=== PATIENT | female | born 1980 | race Caucasian/White ===

== ENCOUNTER 2017-03-16 03:58 | Emergency (ER) | payer OTHER ==
--- NOTE | 2017-03-16 04:29 | RAD ---
Right ankle, three views Indication: Trauma with ankle pain Comparison: None Findings: No acute fracture or malalignment is identified. Joint spaces are preserved without appreci able arthropathy. There is no significant joint effusion. Surrounding soft tissues are unremarkable. Impression: No acute radiographic abnormality of the right ankle. Reported By:
[2017-03-16 04:31] VITALS: BP 137/78; BMI 34.7
[2017-03-16] MEDS ORDERED: DUONEB 0.5 MG/3 MG NEB ONE (04:59)
[2017-03-16] MEDS ORDERED: SOLU-Medrol 40 MG VIAL IVP ONE (04:59)
--- NOTE | 2017-03-16 05:05 | DR.GENAD ---
HPI - PCP Primary Care Physician: NFD - Complaint/Symptoms Chief Complaint Doctors Comments: Rt. ankle pain. Onset was 2 days ago, when she missed a few steps while coming down on the stairs at home. She fell to the concrete. The pain got more pronounced this morning, while playing with her puppies. It hurts to bear dunia on the extremity. Chief Complaint:: INJURY TO RIGHT ANKLE - Nurses notes reviewed Nurses Notes Review: Yes - Source History Provided: Patient - Mode of Arrival Mode of Arrival: Wheelchair - Timing Onset of Chief Complaint: 03/14/17 Came on: Suddenly - Severity Severity: Severe - Modifying Factors Worsens:: weight bearing Improves:: non-wt. bearing - Associated Signs and Symptoms Associated Signs and Symptoms: none PMH - PMH Past Medical History: Yes Past Medical History: Anxiety, Asthma, Diabetes Past Surgical History: Yes Surgical History: , Other - Family History History of Family Medical Conditions: Yes Family Medical History: Diabetes Mellitus, [place], Hypertension - Social History Does patient currently use any type of tobacco product: No Have you used tobacco products in the last 12 months: No Type of Tobacco Use: None Does any household member use tobacco: No Alcohol Use: None Do you use any recreational Drugs:: No Lives With: Family Lives Where: Home - infectious screening In the last 2 months have you had wt loss of >10#?: NO Have you had fever, night sweats or hemotysis?: No Have you traveled outside the country in the last 6 months?: No Isolation: Standard ROS - Review of Systems Constitutional: No Symptoms Reported Eyes: No Symptoms Reported ENTM: No Symptoms Reported Respiratoy: No Symptoms Reported Cardiovascular: No Symptoms Reported Gastrointestinal/Abdominal: No Symptoms Reported Genitourinary: No Symptoms Reported Neurological: No Symptoms Reported Musculoskeletal: Joint Pain, Right (right ankle tenderness ), Ankle Integumentary: No Symptoms Reported Hematologic/Lymphatic: No Symptoms Reported Endocrine: No Symptoms Reported Psychiatric: No Symptoms Reported All Other Systems: Reviewed and Negative PE - Vital Signs Vitals: Temperature 98.4 F Pulse Rate 123 Respiratory Rate 16 Blood Pressure 137/78 O2 Sat by Pulse Oximetry 96 - General Limitations: No Limitations General Appearance: Alert, In No Apparent Distress - Head Head Exam: Normal Inspection - Eyes Eye exam: Normal Appearance, PERRL, EOMI - ENT ENT Exam: Normal Exam - Neck Neck Exam: Normal Inspection, Full ROM - Chest Chest Inspection: Normal Inspection, Symmetric Chest Wall Rise - Respiratory Respiratory Exam: Normal Lung Sounds Bilat - Cardiovascular Cardiovascular Exam: Regular Rate, Normal Rhythm, +S1, +S2 - Abdominal Exam Abdominal Exam: Normal Inspection, Normal Bowel Sounds, Soft - Extremities Extremities Exam: Normal Inspection, Full ROM, Tenderness (circumferential rt. ankle tenderness) - Back Back Exam: Normal Inspection - Neurologic Neurological Exam: Alert, Oriented X3, CN II-XII Intact - Psychiatric Psychiatric Exam: Normal Affect, Normal Mood - Skin Skin Exam: Warm, Dry, Intact ROR - XRAY XRAY Interpreted by: Self (no fracture of ddislocation of the ankle joint) - Diagnosis Discharge Problem: Right ankle sprain - Discharge Plan Disposition: 01 HOME, SELF-CARE Condition: Stable - Follow ups/Referrals Follow ups/Referrals: NFD,None [Primary Care Provider] - 3 days - Instructions
[2017-03-16] MEDS ORDERED: TORADOL 60 MG VIAL IM ONE (05:09)
[2017-03-16] MEDS ORDERED: TORADOL 60 MG VIAL ONE (05:15)
== END 2017-03-16 05:34 | disposition home or self-care (01) ==
LOC: ER 03:58
DX: S93.401A Sprain of unspecified ligament of right ankle, initial encounter (principal); W10.9XXA Fall (on) (from) unspecified stairs and steps, initial encounter; Y92.009 Unspecified place in unspecified non-institutional (private) residence as the place of occurrence of the external cause
CPT/HCPCS: 73610; 96372; 99282; J1885

== ENCOUNTER 2022-02-05 15:08 | Observation (INO) ==
[2022-02-05] MEDS ORDERED: MORPHINE SULFATE INJ 2 MG INJ IVP PRN (15:13)
[2022-02-05] MEDS ORDERED: PHENERGAN INJ 25 MG IM PRN (15:16)
[2022-02-05 16:13] VITALS: BMI 35.2
[2022-02-05] MEDS: NS 1,000 ML IV 1,000 ML IV SCH (16:41)
[2022-02-05 16:48] LABS: BASOPHILS # (AUTO) 0.1 X10^3/uL (0.0-0.1); BASOPHILS % (AUTO) 0.7 % (0.2-1.0); EOSINOPHILS # (AUTO) 0.6 x10^3/uL (0.0-0.2); EOSINOPHILS % (AUTO) 5.2 % (0.9-2.9); HEMATOCRIT 40.3 % (36.0-47.0); HEMOGLOBIN 13.7 g/dL (12.0-16.0); LYMPHOCYTES # (AUTO) 2.6 X10^3/uL (1.3-2.9); MEAN CORPUSCULAR HEMOGLOBIN 28.1 pg (27.0-34.0); MEAN CORPUSCULAR HGB CONC 34.1 g/dL (33.0-35.0); MEAN CORPUSCULAR VOLUME 82.6 fL (80.0-100.0); MEAN PLATELET VOLUME 7.6 fL (7.4-11.0); MONOCYTES # (AUTO) 0.6 x10^3/uL (0.3-0.8); MONOCYTES % (AUTO) 6.1 % (0.0-13.0); NEUTROPHILS # (AUTO) 6.6 x10^3/uL (2.2-4.8); RED BLOOD COUNT 4.88 X10^6/uL (3.5-5.4); WHITE BLOOD COUNT 10.5 X10^3/uL (3.6-10.0)
--- NOTE | 2022-02-05 16:58 | RAD ---
HISTORYINTRACTABLE N/VSTUDYKUB x-ray one viewCOMPARISONX-ray 12/16/2021FINDINGSPhlebolith in the left side of the pelvis is stable. Prior cholecystectomy. No abnormalities are seen with the bowel gas pattern.IMPRESSIONAppearance of the abdomen is unchanged.Electronically signed by: Jonny Whitlock (Feb 05, 2022 16:56:39)
[2022-02-05 17:04] LABS: SERUM ACETONE NEGATIVE (NEGATIVE)
[2022-02-05 17:06] LABS: ALANINE AMINOTRANSFERASE 45 Units/L (12-78); ALBUMIN 3.8 g/dL (3.4-5.0); ALKALINE PHOSPHATASE 92 Units/L (46-116); ASPARTATE AMINO TRANSFERASE 93 Units/L (15-37); BLOOD UREA NITROGEN 8 mg/dL (7-18); CALCIUM 8.9 mg/dL (8.5-10.1); CARBON DIOXIDE 27.6 mmol/L (21-32); CHLORIDE 98 mmol/L (98-107); COR NA(FOR HYPERGLY) 139 mmol/L (136-145); CREATININE 0.67 mg/dL (0.55-1.02); SODIUM 137 mmol/L (136-145); TOTAL PROTEIN 7.5 g/dL (6.4-8.2); eGFR NON BLACK RACES > 60 (>60)
[2022-02-05] MEDS: PROTONIX INJ 40 MG VIAL IVP SCH ×2 (17:12→20:42)
[2022-02-05] MEDS: NovoLIN R (or HumuLIN R) SUBCUT PRN ×2 (17:21→23:13)
[2022-02-05 18:48] LABS: BILIRUBIN,URINE NEGATIVE (NEGATIVE); BLOOD/HEMOGLOBIN,URINE 1+ (NEGATIVE); GLUCOSE, URINE NEGATIVE (NEGATIVE); KETONES,URINE 1+ (NEGATIVE); LEUKOCYTE ESTERASE ,URINE NEGATIVE (NEGATIVE); NITRITES,URINE NEGATIVE (NEGATIVE); PROTEIN,URINE 1+ (NEGATIVE); UROBILINOGEN,URINE NORMAL (NORMAL)
[2022-02-05 19:00] LABS: APPEARANCE,URINE CLEAR (CLEAR); COLOR,URINE DARK YELLOW (YELLOW); SQUAMOUS EPITHELIAL CELL,UR MODERATE /HPF (NEGATIVE)
[2022-02-05 19:01] LABS: BACTERIA,URINE 1+ /HPF (NEGATIVE)
[2022-02-05 19:50] LABS: CRYPTOSPORIDIUM PARVUM ANTIGEN NEGATIVE (NEGATIVE); GIARDIA LAMBLIA ANTIGEN NEGATIVE (NEGATIVE)
[2022-02-05] MEDS ORDERED: DUONEB 0.5 MG/3 MG (3 mL) NEB ONE (19:54)
[2022-02-05] MEDS ORDERED: SNACK - Diabetic Appropriate PO SCH (20:00)
[2022-02-05] MEDS: DUONEB 0.5 MG/3 MG (3 mL) NEB SCH (20:56)
[2022-02-06] MEDS: DUONEB 0.5 MG/3 MG (3 mL) NEB SCH ×3 (00:10→08:47)
[2022-02-06] MEDS: NS 1,000 ML IV 1,000 ML IV SCH ×2 (01:21→08:24)
[2022-02-06 05:59] LABS: BASOPHILS % (AUTO) 0.5 % (0.2-1.0); EOSINOPHILS # (AUTO) 0.4 x10^3/uL (0.0-0.2); EOSINOPHILS % (AUTO) 4.7 % (0.9-2.9); HEMATOCRIT 36.1 % (36.0-47.0); LYMPHOCYTES # (AUTO) 2.9 X10^3/uL (1.3-2.9); LYMPHOCYTES % (AUTO) 35.8 % (21.0-51.0); MEAN CORPUSCULAR HGB CONC 33.2 g/dL (33.0-35.0); MEAN CORPUSCULAR VOLUME 84.3 fL (80.0-100.0); MEAN PLATELET VOLUME 7.7 fL (7.4-11.0); MONOCYTES # (AUTO) 0.5 x10^3/uL (0.3-0.8); MONOCYTES % (AUTO) 6.1 % (0.0-13.0); NEUTROPHILS # (AUTO) 4.3 x10^3/uL (2.2-4.8); NEUTROPHILS % (AUTO) 52.9 % (42.0-75.0); RED BLOOD COUNT 4.28 X10^6/uL (3.5-5.4); RED CELL DISTRIBUTION WIDTH 14.7 % (11.6-16.5); WHITE BLOOD COUNT 8.1 X10^3/uL (3.6-10.0)
[2022-02-06] MEDS: NovoLIN R (or HumuLIN R) SUBCUT PRN (06:07)
[2022-02-06 06:26] LABS: ALANINE AMINOTRANSFERASE 33 Units/L (12-78); ALBUMIN 3.1 g/dL (3.4-5.0); ALKALINE PHOSPHATASE 81 Units/L (46-116); ASPARTATE AMINO TRANSFERASE 47 Units/L (15-37); BLOOD UREA NITROGEN 9 mg/dL (7-18); CALCIUM 8.2 mg/dL (8.5-10.1); CARBON DIOXIDE 24.6 mmol/L (21-32); CHLORIDE 103 mmol/L (98-107); COR CA(FOR HYPOALB) 8.9 mg/dL (8.5-10.1); COR NA(FOR HYPERGLY) 141 mmol/L (136-145); CREATININE 0.76 mg/dL (0.55-1.02); SODIUM 138 mmol/L (136-145); TOTAL PROTEIN 6.1 g/dL (6.4-8.2); eGFR NON BLACK RACES > 60 (>60)
[2022-02-06] MEDS ORDERED: TYLENOL 325 MG TAB PO PRN (08:13)
[2022-02-06] MEDS: PROTONIX INJ 40 MG VIAL IVP SCH (08:22)
--- NOTE | 2022-02-06 08:42 | DR.H&P ---
H&P History & Physical for Day of: H&P Date: 02/05/22 Chief Complaint Chief Complaint: Intractable nausea and vomiting Allergies Allergies Allergy/AdvReac Type Severity Reaction Status Date / Time amoxicillin Allergy Verified 01/08/22: aspirin Allergy Verified 01/08/22 21: citric acid Allergy Verified 01/08/22: haloperidol [From Haldol] Allergy Verified 01/08/22 21: hydromorphone Allergy Verified 01/08/22: metoclopramide Allergy Verified 01/08/22: omeprazole Allergy Verified 01/08/22: ondansetron Allergy Verified 01/08/22: [From Zofran (as hydrochloride)] Penicillins Allergy Verified 01/08/22: prochlorperazine Allergy Verified 01/08/22: History of Present Illness History of Present Illness: This is a 41-year-old white female who reports having intractable nausea vomiting. She reports at times she just eats or drinks something she throws up. She has been on hospital for 5 days now from [place]. She was hospitalized for 8 days for same symptoms. She was disc harged Thursday however she reports she is not any better and has been vomiting again. She reports she may have been diagnosed with Salmonella or E. coli in the stool but she is not for sure about this. "Admitted to the hospital and started on IV fluid and do a work-up regarding her diarrhea and check a serum acetone to rule out DKA. Past Medical History Past Medical History: Anxiety, Asthma, Depression, Diabetes, Migraines, GERD, Hypertension and SVT Past Surgical History Surgical History: , Cholecystectomy and Hysterectomy Family History Family Medical History: Diabetes Mellitus, Cancer, [place], Coronary Artery Disease, Heart Failure and Hypertension Social History Does patient currently use any type of tobacco product: No Have you used tobacco products in the last 12 months: No Type of Tobacco Use: None Does any household member use tobacco: No Alcohol Use: None Drug Use: None Medications Home Medications: amoxicillin Allergy (Verified 01/08/22 21:) aspirin Allergy (Verified 01/08/22:) citric acid Allergy (Verified 01/08/22:) haloperidol [From Haldol] Allergy (Verified 01/08/22:) hydromorphone Allergy (Verified 11/02/22 21:22) metoclopramide Allergy (Verified 01/08/22 21:22) omeprazole Allergy (Verified 01/08/22 21:22) ondansetron [From Zofran (as hydrochloride)] Allergy (Verified 01/08/22 21:22) Penicillins Allergy (Verified 01/08/22 21:22) prochlorperazine Allergy (Verified 01/08/22 21:22) CONTINUE taking the following medications acyclovir 400 mg tablet 400 mg PO BID 02/05/22 [History] atorvastatin 20 mg tablet 20 mg PO HS 02/05/22 [History] cyclobenzaprine 10 mg tablet 10 mg PO BID PRN Muscle Pain 02/05/22 [History] dicyclomine 10 mg capsule 10 mg PO TID 02/05/22 [History] diltiazem HCl 180 mg capsule,extended release 24 hr (Cartia XT) 180 mg PO DAILY 02/05/22 [History] ertugliflozin 5 mg tablet (Steglatro) 5 mg PO DAILY 02/05/22 [History] estradiol 2 mg tablet 2 mg PO DAILY 02/05/22 [History] famotidine 20 mg tablet (Pepcid) 20 mg PO BID 02/05/22 [History] fexofenadine 180 mg tablet 180 mg PO BID 02/05/22 [History] hydrocodone 7.5 mg-acetaminophen 325 mg tablet 7.5 tab PO BID PRN 02/05/22 [His tory] insulin aspart U-100 100 unit/mL (3 mL) subcutaneous pen (Novolog Flexpen U-100 Insulin aspart) 1 unit subcut PRN PRN 02/05/22 [History] insulin glargine 100 unit/mL (3 mL) subcutaneous pen (Basaglar KwikPen U-100 Insulin) 40 unit subcut DAILY 02/05/22 [History] lorazepam 1 mg tablet 1 mg PO BID 02/05/22 [History] meloxicam 7.5 mg tablet 7.5 mg PO TID 02/05/22 [History] metformin 1,000 mg tablet,extended release 24hr 1,000 mg PO BID 02/05/22 [History] montelukast 10 mg tablet 10 mg PO DAILY 02/05/22 [History] omeprazole 40 mg capsule,delayed release 40 mg PO DAILY 02/05/22 [History] promethazine 50 mg tablet 50 mg PO BID PRN Nausea 02/05/22 [History] trazodone 50 mg tablet 50 mg PO HS 02/05/22 [History] Labs Result Diagrams: 02/06/22 05:19 02/06/22 05:19 Labs: 02/05/22 18:15 Stool - Final Laboratory WBC 8.1 X10^3/uL (3.6-10.0) 02/06/22 05:19 RBC 4.28 X10^6/uL (3.5-5.4) 02/06/22 05:19 Hgb 12.0 g/dL (12.0-16.0) 02/06/22 05:19 Hct 36.1 % (36.0-47.0) 02/06/22 05:19 MCV 84.3 fL (80.0-100.0) 02/06/22 05:19 MCH 28.0 pg (27.0-34.0) 02/06/22 05:19 MCHC 33.2 g/dL (33.0-35.0) 02/06/22 05:19 RDW 14.7 % (11.6-16.5) 02/06/22 05:19 Plt Count 260 X10^3/uL (150.0-450.0) 02/06/22 05:19 MPV 7.7 fL (7.4-11.0) 02/06/22 05:19 Neut % (Auto) 52.9 % (42.0-75.0) 02/06/22 05:19 Lymph % (Auto) 35.8 % (21.0-51.0) 02/06/22 05:19 [place] % (Auto) 6.1 % (0.0-13.0) 02/06/22 05:19 Eos % (Auto) 4.7 % (0.9-2.9) H 02/06/22 05:19 Baso % (Auto) 0.5 % (0.2-1.0) 02/06/22 05:19 Neut # (Auto) 4.3 x10^3/uL (2.2-4.8) 02/06/22 05:19 Lymph # (Auto) 2.9 X10^3/uL (1.3-2.9) 02/06/22 05:19 [place] # (Auto) 0.5 x10^3/uL (0.3-0.8) 02/06/22 05:19 Eos # (Auto) 0.4 x10^3/uL (0.0-0.2) H 02/06/22 05:19 Baso # (Auto) 0.0 X10^3/uL (0.0-0.1) 02/06/22 05:19 Absolute Nucleated RBC 0.0 /100WBC 02/06/22 05:19 Sodium 138 mmol/L (136-145) 02/06/22 05:19 Corrected Sodium 141 mmol/L (136-145) 02/06/22 05:19 Potassium 3.9 mmol/L (3.5-5.1) 02/06/22 05:19 Chloride 103 mmol/L (98-107) 02/06/22 05:19 Carbon Dioxide 24.6 mmol/L (21-32) 02/06/22 05:19 BUN 9 mg/dL (7-18) 02/06/22 05:19 Creatinine 0.76 mg/dL (0.55-1.02) 02/06/22 05:19 Est GFR (MDRD) Af Amer > 60 (>60) 02/06/22 05:19 Est GFR (MDRD) Non-Af > 60 (>60) 02/06/22 05:19 Glucose 223 mg/dL (65-99) H 02/06/22 05:19 POC Glucose (mg/dL) 204 mg/dL (65-99) H 02/06/22 05:19 Calcium 8.2 mg/dL (8.5-10.1) L 02/06/22 05:19 Corrected Calcium 8.9 mg/dL (8.5-10.1) 02/06/22 05:19 Total Bilirubin 0.30 mg/dL (0.2-1.0) 02/06/22 05:19 AST 47 Units/L (15-37) H 02/06/22 05:19 ALT 33 Units/L (12-78) 02/06/22 05:19 Alkaline Phosphatase 81 Units/L (46-116) 02/06/22 05:19 Total Protein 6.1 g/dL (6.4-8.2) L 02/06/22 05:19 Albumin 3.1 g/dL (3.4-5.0) L 02/06/22 05:19 Globulin 3.0 g/dL (2.5-4.5) 02/06/22 05:19 Albumin/Globulin Ratio 1.0 Ratio (1.1-2.1) L 02/06/22 05:19 Specimen Type Clean catch urine 02/05/22 18:10 Urine Color Dark yellow (YELLOW) 02/05/22 18:10 Urine Appearance Clear (CLEAR) 02/05/22 18:10 Urine pH 6.0 (5.0 - 8.0) 02/05/22 18:10 Ur Specific [place] 1.020 (1.000-1.030) 02/05/22 18:10 Urine Protein 1+ (NEGATIVE) 02/05/22 18:10 Urine Glucose (UA) Negative (NEGATIVE) 02/05/22 18:10 Urine Ketones 1+ (NEGATIVE) 02/05/22 18:10 Urine Blood 1+ (NEGATIVE) 02/05/22 18:10 Urine Nitrite Negative (NEGATIVE) 02/05/22 18:10 Urine Bilirubin Negative (NEGATIVE) 02/05/22 18:10 Urine Urobilinogen Normal (NORMAL) 02/05/22 18:10 Ur Leukocyte Esterase Negative (NEGATIVE) 02/05/22 18:10 Urine RBC 3-5 /HPF (0-3) A 02/05/22 18:10 Urine WBC 0-2 /HPF (0-5) 02/05/22 18:10 Ur Squamous Epith Cells Moderate /HPF (NEGATIVE) 02/05/22 18:10 Urine Bacteria 1+ /HPF (NEGATIVE) 02/05/22 18:10 Urine Mucus Many /HPF (NEGATIVE) 02/05/22 18:10 Ur Culture Indicated? No/not indicated 02/05/22 18:10 Stl Occult Blood (IFOB) Negative (NEGATIVE) 02/05/22 18:15 Stool for White Cells Positive (NEGATIVE) A 02/05/22 18:15 Stl C. diff Tox B Gene Negative (NEGATIVE) 02/05/22 18:15 Stl C. diff [id number] Presumptive negative (NEGATIVE) 02/05/22 18:15 Stool H. pylori Ag Negative (NEGATIVE) 02/05/22 18:15 Acetone, Semi-Quant Negative (NEGATIVE) 02/05/22 16:10 Cryptosporid parvum Ag Negative (NEGATIVE) 02/05/22 18:15 Giardia lamblia Ag Negative (NEGATIVE) 02/05/22 18:15 Review of Systems Constitutional: Weakness Eyes: No Symptoms Reported ENT: No Symptoms Reported Respiratory: No Symptoms Reported Cardiovascular: No Symptoms Reported Gastrointestinal: Nausea, Vomiting and Diarrhea Genitourinary: No Symptoms Reported Musculoskeletal: No Symptoms Reported Skin: No Symptoms Reported Neurological: No Symptoms Reported Physical Exam Vital Signs: Temperature 98.6 F Pulse Rate [Left] 95 Pulse Rate 103 Respiratory Rate 20 Blood Pressure [Right Arm] 120/72 Blood Pressure [Left Arm] 117/83 Blood Pressure 131/97 O2 Sat by Pulse Oximetry 96 Oriented: Normal, Time, Person and Place Eyes: Normal Ear: Normal Nose: Normal Throat: Normal Respiratory: Clear Throughout Cardiovascular: Normal Auscultation: Bowel Sounds: Normal Palpation: Normal Tenderness: Normal Skin: Normal Musculoskeletal: Normal Psychiatric: Normal Mood Description: Calm Affect: Normal Speech Pattern: Clear and Appropriate Assessment/Plan (1) Nausea and vomiting: Status: Acute Plan: I will start patient on IV fluid and give her as needed Phenergan. (2) Weakness: Status: Acute Plan: We will check CMP, CBC. (3) Diabetes mellitus type 2 in obese: Status: Acute Plan: Will cover patient with slight scale regular insulin per protocol. Review H&P Reviewed: Yes Patient was examined?: Yes
[2022-02-06 09:41] VITALS: BP 121/73
== END 2022-02-06 11:10 | disposition home or self-care (01) ==
LOC: MED/SURG
PROVIDERS: ADMIT Family Medicine; ATTEND Family Medicine
DX: E11.65 Type 2 diabetes mellitus with hyperglycemia; R11.2 Nausea with vomiting, unspecified; R53.1 Weakness; E66.9 Obesity, unspecified

== ENCOUNTER 2023-05-15 02:52 | Inpatient (IN) ==
[2023-05-15 03:22] VITALS: BMI 34.5
[2023-05-15 03:46] LABS: BASOPHILS % (AUTO) 0.6 % (0.2-1.0); EOSINOPHILS # (AUTO) 0.7 x10^3/uL (0.0-0.2); EOSINOPHILS % (AUTO) 9.1 % (0.9-2.9); HEMATOCRIT 33.1 % (36.0-47.0); HEMOGLOBIN 10.9 g/dL (12.0-16.0); LYMPHOCYTES # (AUTO) 1.8 X10^3/uL (1.3-2.9); LYMPHOCYTES % (AUTO) 21.2 % (21.0-51.0); MEAN CORPUSCULAR HEMOGLOBIN 27.9 pg (27.0-34.0); MEAN CORPUSCULAR HGB CONC 32.9 g/dL (33.0-35.0); MEAN CORPUSCULAR VOLUME 84.8 fL (80.0-100.0); MONOCYTES # (AUTO) 0.5 x10^3/uL (0.3-0.8); MONOCYTES % (AUTO) 5.8 % (0.0-13.0); NEUTROPHILS # (AUTO) 5.2 x10^3/uL (2.2-4.8); NEUTROPHILS % (AUTO) 63.3 % (42.0-75.0); PLATELET COUNT 406 X10^3/uL (150.0-450.0); RED CELL DISTRIBUTION WIDTH 14.5 % (11.6-16.5); WHITE BLOOD COUNT 8.3 X10^3/uL (3.6-10.0)
[2023-05-15 03:54] LABS: ALANINE AMINOTRANSFERASE 29 Units/L (12-78); ALBUMIN 2.8 g/dL (3.4-5.0); ALKALINE PHOSPHATASE 92 Units/L (46-116); ASPARTATE AMINO TRANSFERASE 31 Units/L (15-37); BLOOD UREA NITROGEN 5 mg/dL (7-18); CALCIUM 8.3 mg/dL (8.5-10.1); CARBON DIOXIDE 31.6 mmol/L (21-32); CHLORIDE 101 mmol/L (98-107); COR CA(FOR HYPOALB) 9.3 mg/dL (8.5-10.1); COR NA(FOR HYPERGLY) 143 mmol/L (136-145); CREATININE 0.72 mg/dL (0.55-1.02); GLUCOSE 171 mg/dL (65-99); POTASSIUM 3.2 mmol/L (3.5-5.1); SODIUM 141 mmol/L (136-145); TOTAL PROTEIN 6.5 g/dL (6.4-8.2); eGFR NON BLACK RACES > 60 (>60)
--- NOTE | 2023-05-15 04:21 | DR.SOBA ---
HPI Time Seen Time Seen by Provider: 05/15/23 03:30 Primary Care Physician Primary Care Physician: SULY Complaints Chief Complaint Doctors Comments: Patient was admitted 05/06/2023 and d/c 05/09/[address] Chandra's Service for a hernia repair. Patient states that she has been feeling sob since d/c.She was coughing blood tinged sputum,had low grade temp (100-100.4 ). Patient states that her sob worsened and she has had increased nausea,headache,decreased appetite and increased abdominal pain and decided to come to the hospital to get checked out.Patient denies: dizziness,lightheadedness,discharge from the incision site. Chief Complaint:: PT COMPLAINING OF SOB X 1 WEEK. PT HAD SURGERY 1 WEEK AGO AND STATES SINCE SURGERY SHE FEELS LIKE SHE ISN'T ABLE TO CATCH HER BREATH. Self Treatment fo Chief Complaint: NORCO 10 COVID-19 Coronavirus risk:travel/contact w/high risk person: No Source History Provided: Patient Mode of Arrival Mode of Arrival: Ambulatory Timing Onset of Chief Complaint: 05/06/23 PMH PMH Past Medical History: Yes Past Medical History: Anxiety, Asthma, Depression, Diabetes, GERD, Liver Disease, Seizures and Sleep Apnea Past Surgical History: Yes Surgical History: , Cholecystectomy and Hysterectomy Family History History of Family Medical Conditions: Yes Family Medical History: Hypertension Social History Do you use any recreational Drugs:: No Travel Risk Coronavirus risk:travel/contact w/high risk person: No Infectious screening Have you traveled outside the country in the last 6 months?: No Isolation: Standard ROS Review of Systems Constitutional: Fever (low grade) Eyes: No Symptoms Reported ENTM: No Symptoms Reported Respiratoy: Productive Cough (blood tinged sputum) and Short of Breath Cardiovascular: No Symptoms Reported Gastrointestinal/Abdominal: Abdominal Pain (surr. incision site), Nausea and Food Intolerance Genitourinary: No Symptoms Reported Neurological: Headache Musculoskeletal: No Symptoms Reported Integumentary: Other (Incision dressing abdomen(no drainage on dressing)) Hematologic/Lymphatic: No Symptoms Reported Endocrine: No Symptoms Reported Psychiatric: No Symptoms Reported All Other Systems: Reviewed and Negative PE Vital Signs Vitals: Vital Signs Temperature 98.4 F Pulse Rate [Bilateral Radial] 102 Pulse Rate 122 Respiratory Rate 20 Respiratory Rate 20 Respiratory Rate 22 Blood Pressure [Right Arm] 149/93 Blood Pressure 141/96 O2 Sat by Pulse Oximetry 96 O2 Sat by Pulse Oximetry 93 General Limitations: No Limitations General Appearance: Alert and In No Apparent Distress Head Head Exam: Normal Inspection Eyes Eye exam: Normal Appearance ENT ENT Exam: Normal Exam Neck Neck Exam: Normal Inspection and Trachea Midline Chest Chest Inspection: Normal Inspection Respiratory Respiratory Exam: Normal Lung Sounds Bilat Respiratory Exam: Bilateral: Clear to Auscultation Cardiovascular Cardiovascular Exam: Regular Rate and Normal Rhythm Abdominal Exam Abdominal Exam: Soft, Hypoactive Bowel Sounds and Incision (No erythema,no d/c,no warmth,moderate tenderness to palpation) Abdominal Tenderness: Epigastrium and Other (umbilical) Extremities Extremities Exam: Normal Inspection Back Back Exam: Normal Inspection Neurologic Neurological Exam: Alert and Oriented X3 Psychiatric Psychiatric Exam: Normal Affect and Normal Mood Skin Skin Exam: Warm, Dry, Intact and Normal Color MDM Differential Diagnosis Differential Diagnosis: CHF and Pneumonia Differential Diagnosis Comment:: Abdomen: Inflammation/Obstr/Perforation/I schemic Bowel COURSE Treatment Treatment: Patient was brought to an exam room and IV access was initiated. Labs and tests were ordered. Review of patient's labs and tests revealed: WBC 8.3,H/H 10.9/33, BUN 5,creatinine 0.72, lactic acid 0.8, CRP 27.1, BNP 151, glucose 171, potassium 3.2. CXR: Revealed multifocal consolidation with nodular opacities in the left mid and bilateral lower lung zones that may represent acute or chronic airspace disease. Patient had an elevated D-dimer and chest CTA was performed> CTA chest did not reveal a PE, multiple pulmonary nodules prominent in the right upper right middle right lower lobe and left upper lobe were present and may represent infectious or neoplastic process, and Patient has small bilateral pleural effusions. Patient received Rocephin 2 g IV and Levaquin 750 mg IV for possible community-acquired pneumonia. Patient takes Phenergan 25 mg every 6 hours and hydrocodone 10 mg every 4 hours for pain. And she was given a dose of each in the ED today. Discussed patient's case with Dr. Chandra. Dr. Ahumada will admit the patient to his service for further evaluation. Patient has been stable in the ED. ; ROR Labs Reviewed Laboratory Results Reviewed?: Yes 05/15/23 03:33 05/15/23 03:33 Laboratory: WBC 8.3 X10^3/uL (3.6-10.0) 05/15/23 03:33 RBC 3.90 X10^6/uL (3.5-5.4) 05/15/23 03:33 Hgb 10.9 g/dL (12.0-16.0) L 05/15/23 03:33 Hct 33.1 % (36.0-47.0) L 05/15/23 03:33 MCV 84.8 fL (80.0-100.0) 05/15/23 03:33 MCH 27.9 pg (27.0-34.0) 05/15/23 03:33 MCHC 32.9 g/dL (33.0-35.0) L 05/15/23 03:33 RDW 14.5 % (11.6-16.5) 05/15/23 03:33 Plt Count 406 X10^3/uL (150.0-450.0) 05/15/23 03:33 MPV 7.0 fL (7.4-11.0) L 05/15/23 03:33 Neut % (Auto) 63.3 % (42.0-75.0) 05/15/23 03:33 Lymph % (Auto) 21.2 % (21.0-51.0) 05/15/23 03:33 [place] % (Auto) 5.8 % (0.0-13.0) 05/15/23 03:33 Eos % (Auto) 9.1 % (0.9-2.9) H 05/15/23 03:33 Baso % (Auto) 0.6 % (0.2-1.0) 05/15/23 03:33 Neut # (Auto) 5.2 x10^3/uL (2.2-4.8) H 05/15/23 03:33 Lymph # (Auto) 1.8 X10^3/uL (1.3-2.9) 05/15/23 03:33 [place] # (Auto) 0.5 x10^3/uL (0.3-0.8) 05/15/23 03:33 Eos # (Auto) 0.7 x10^3/uL (0.0-0.2) H 05/15/23 03:33 Baso # (Auto) 0.0 X10^3/uL (0.0-0.1) 05/15/23 03:33 Absolute Nucleated RBC 0.1 /100WBC 05/15/23 03:33 D-Dimer 3.86 ug/ml (0.0-0.57) H 05/15/23 03:33 Sodium 141 mmol/L (136-145) 05/15/23 03:33 Corrected Sodium 143 mmol/L (136-145) 05/15/23 03:33 Potassium 3.2 mmol/L (3.5-5.1) L 05/15/23 03:33 Chloride 101 mmol/L (98-107) 05/15/23 03:33 Carbon Dioxide 31.6 mmol/L (21-32) 05/15/23 03:33 BUN 5 mg/dL (7-18) L 05/15/23 03:33 Creatinine 0.72 mg/dL (0.55-1.02) 05/15/23 03:33 Est GFR (MDRD) Af Amer > 60 (>60) 05/15/23 03:33 Est GFR (MDRD) Non-Af > 60 (>60) 05/15/23 03:33 Glucose 171 mg/dL (65-99) H 05/15/23 03:33 Lactic Acid 0.8 mmol/L (0.4-2.0) 05/15/23 06:55 Calcium 8.3 mg/dL (8.5-10.1) L 05/15/23 03:33 Corrected Calcium 9.3 mg/dL (8.5-10.1) 05/15/23 03:33 Total Bilirubin 0.40 mg/dL (0.2-1.0) 05/15/23 03:33 AST 31 Units/L (15-37) 05/15/23 03:33 ALT 29 Units/L (12-78) 05/15/23 03:33 Alkaline Phosphatase 92 Units/L (46-116) 05/15/23 03:33 C-Reactive Protein 27.10 mg/L (0-3.0) H 05/15/23 06:55 B-Natriuretic Peptide 151 pg/mL (0-79) H 05/15/23 03:33 Total Protein 6.5 g/dL (6.4-8.2) 05/15/23 03:33 Albumin 2.8 g/dL (3.4-5.0) L 05/15/23 03:33 Globulin 3.7 g/dL (2.5-4.5) 05/15/23 03:33 Albumin/Globulin Ratio 0.8 Ratio (1.1-2.1) L 05/15/23 03:33 Opioid Opioid Risk Tool Age (Cesar box if 16-45): Yes History of Preadolescent Sexual Abuse: No Total: 1 Total Score Risk Category: Low Risk Copyright: Ish SONG predicting aberrant behaviors Discharge Plan Diagnosis Discharge Problem: Pneumonia, Abdominal abscess, Bilateral pleural effusion, Multiple pulmonary nodules Discharge Plan Patient Disposition: ADMITTED INPATIENT Condition: Stable Prescriptions: No Action citalopram [Celexa] 10 mg tablet 10 mg PO QDAY 30 Days Qty: 30 3RF hydroxyzine pamoate 50 mg capsule 50 mg PO QHS PRN (Reason: sleep) 30 Days Qty: 30 3RF omeprazole 40 mg capsule,delayed release(DR/EC) 40 mg PO QDAY 30 Days Qty: 30 2RF lorazepam 1 mg tablet 1 mg PO BID MDD 2 30 Days Qty: 60 0RF insulin lispro [Admelog SoloStar U-100 Insulin] 100 unit/mL insulin pen 12 unit SUBCUT TID PRN (Reason: diabetes) Qty: 15 0RF gabapentin 300 mg capsule 300 mg PO TID 30 Days Qty: 90 0RF hydrocodone-acetaminophen 7.5-325 mg tablet 1 tab PO BID MDD 2 PRN (Reason: pain) 30 Days Qty: 60 0RF hydrocodone-acetaminophen 10-325 mg tablet 1 tab PO TID MDD 3 PRN (Reason: pain) 30 Days Qty: 90 0RF promethazine 25 mg tablet 25 mg PO Q6H PRN (Reason: nausea and vomiting) Qty: 30 0RF (DME) OneTouch Verio test strips Strip 1 strip MISCELLANEOUS TID Health Concerns: Post Hospitalization: new medications and changes needed to prevent readmission or further decline. Pt educated and given instructions on all concerns. Plan of Treatment: Continue with present treatment and follow up plan. Pt is to keep follow up appointment as instructed and take medications as ordered. Orders to Discharge Patient Discharge Orders: Transfer (Routine); Ordered 05/15/23 Ordered By: Jeimy Iniguez Follow ups/Referrals Follow ups/Referrals: Miquel Brown [Primary Care Provider] - 3 days Instructions Stand Alone Forms: Post Hospital Follow Up Care
[2023-05-15] MEDS: NS 100 ML IV 100 ML ONE (05:14)
[2023-05-15] MEDS: OMNIPAQUE 350 mg/mL 100 mL BTL 100 ML ONE (05:14)
--- NOTE | 2023-05-15 06:01 | RAD ---
EXAM:FRONTAL VIEW CHEST X-RAYHISTORY:Shortness of breathCOMPARISON:None.FINDINGS:Mult ifocal consolidation is seen with nodular opacities in the left mid and bilateral lower lung zones.The heart size is within normal limits.The mediastinum is unremarkable.There is no evidence of pleural effusion or gross pneumothorax.The trachea is midline.IMPRESSION:1. Multifocal consolidation is seen with nodular opacities in the left mid and bilateral lower lung zones. This finding was not present on the prior study and may represent acute or chronic airspace disease.THIS IS AN ELECTRONICALLY VERIFIED FINAL REPORT05/15/2023 5:58 AM - Electronically signed by Jaxson Saleh MD
[2023-05-15] MEDS ORDERED: NS 100 ML IV 100 ML ONE (06:18)
[2023-05-15] MEDS ORDERED: ROCEPHIN VIAL 2 GRAMS ONE (06:18)
[2023-05-15] MEDS ORDERED: LEVAQUIN PREMIX IV 750 MG 750 MG/150 ML BAG IV ONE (06:19)
[2023-05-15] MEDS: ROCEPHIN VIAL 2 GRAMS 2 G in NS 100 ML IV 100 ML IV SCH (06:59)
--- NOTE | 2023-05-15 07:05 | CT ---
EXAM:ABDCMEN/PELVIS WITH CONHISTORY:Abdominal painTECHNIQUE:Axial postcontrast images with coronal and sagittal reformats. Dose reduction procedures were used with mA/kv adjusted for body size.COMPARISON:03/07/2024FINDINGS:Bilat eral moderate pleural effusions are present. Atelectatic changes are present in both lung bases abutting the pleural effusions. There is a question of some pulmonary nodules in the lung bases. This should be better evaluated with chest CT. the liver, spleen, adrenal glands, and pancreas appear within normal limits. Patient is status post cholecystectomy. Surgical clips are present also in the left upper quadrant. Kidneys are unobstructed and without stones or masses. No ureteral calculi are identified. There appears to be a recent midline surgical incision in the upper abdomen. Best visualized on axial series 3 image 24 and sagittal series 6 image 44 is a 1.8 x 1.8 cm gas and fluid collection in the anterior peritoneum abutting the abdominal wall. This could represent a small postoperative seroma or developing abscess. Abdominal aorta is normal. No intraperitoneal or retroperitoneal lymphadenopathy of significance is identified. The appendix is normal. There are no findings suggestive of enteritis, colitis, or diverticulitis. No pelvic masses or pelvic lymphadenopathy is identified. There is a small amount of fluid within the pelvis likely postoperative in origin. No definite bladder abnormality is identified. No lytic or blastic skeletal lesions of significance are identified.IMPRESSION:Bilateral small pleural effusions with adjacent atelectatic lung changesQuestion of some small nodules in the lung bases which should be better evaluated with chest CTRecent abdominal incision deep to which there is a 1.8 x 1.8 cm gas and fluid collection within the peritoneum abutting the anterior abdominal wall possibly a small seroma or developing abscess. Clinical correlation is recommended. Follow-up examination may be indicated.Small amount of fluid within the pelvis likely related to recent surgery.THIS IS AN ELECTRONICALLY VERIFIED FINAL REPORT05/15/2023 7:02 AM - Electronically signed by Vinay Estrada MD
[2023-05-15] MEDS: LEVAQUIN PREMIX IV 750 MG 750 MG/150 ML BAG IV SCH (07:41)
--- NOTE | 2023-05-15 08:59 | CT ---
EXAM:CTA, CHESTHISTORY:Shortness of breath, elevated D-dimerTECHNIQUE:Axial postcontrast images with coronal and sagittal reformats. Three-dimensional maximum intensity projection images were obtained and evaluated. Dose reduction techniques were used with MA/kv adjusted for body size.COMPARISON:07/24/2021FINDINGS:There is no evidence for acute pulmonary thromboembolic disease. Examination of the mediastinum demonstrated no evidence for mediastinal masses, and large mediastinal or enlarged hilar adenopathy or significant aortic abnormality. Heart is mildly enlarged. Bilateral small pleural effusions are present. No chest wall or axillary abnormality is identified. Those portions of the upper abdominal organs visualized appeared within normal limits to the limitations of early arterial injection timing with the exception of the previously described 1.8 cm gas and fluid collection within the anterior peritoneum abutting the abdominal wall in the area of the patient's recent incision. Examination of the lung bills demonstrates some atelectatic changes in the lower lobes abutting the patient's pleural effusions. Concomitant pneumonia within these areas of atelectasis not excluded. There has been interval development since the prior examination of multiple (too many to count nodular parenchymal densities most prominently involving the right upper lobe, right middle lobe, and lingular segment of the left upper lobe. There does appear to also be some involvement of the superior segment of the right upper lobe. Findings could be consistent with infection or pulmonary metastatic disease. Pulmonary consultation is recommended.IMPRESSION:No evidence for acute pulmonary thromboembolic diseaseInterval development since the prior CTA 07/24/2021 of multiple (too many to count) noncalcified parenchymal nodules most prominently involving the right upper and right middle lobe, lingular segment of the left upper lobe and to a lesser extent right lower lobe. Findings could be infectious or neoplastic in origin. Pulmonary consultation is recommended.Bilateral small pleural effusions with adjacent atelectatic changes in the lung bases. Pneumonia within the atelectatic areas not excluded.THIS IS AN ELECTRONICALLY VERIFIED FINAL REPORT05/15/2023 8:38 AM - Electronically signed by Vinay Estrada MD
[2023-05-15] MEDS ORDERED: NORCO 10/325 TAB ONE (09:11)
[2023-05-15] MEDS ORDERED: PHENERGAN INJ 25 MG IM ONE (09:11)
[2023-05-15] MEDS: NORCO 10/325 TAB PO ONE (09:16)
[2023-05-15] MEDS: PHENERGAN INJ 25 MG IM ONE (09:18)
[2023-05-15] MEDS ORDERED: CONSULT PHARMACY - POTASSIUM & MAGNESIUM XX SCH (12:00)
[2023-05-15] MEDS: D5 1/2 NS 1,000 ML 1,000 ML IV SCH (13:08)
[2023-05-15] MEDS: NEURONTIN CAP 300 MG PO SCH (13:09)
[2023-05-15] MEDS: K-DUR TAB 20 MEQ PO SCH (13:09)
[2023-05-15] MEDS: LOVENOX INJ 40 MG SYR SC SCH (13:12)
[2023-05-15] MEDS: NORCO 10/325 TAB PO PRN (13:12)
[2023-05-15] MEDS: DUONEB 0.5 MG/3 MG (3 mL) NEB SCH (13:17)
[2023-05-15] MEDS ORDERED: XOPENEX 1.25 MG/3 ML NEBULE NEB SCH (14:00)
[2023-05-15] MEDS: PHENERGAN TAB 25 MG PO PRN (14:58)
--- NOTE | 2023-05-15 16:06 | DR.PROGNOT ---
HOSPITAL PROGRESS NOTE Progress Note for Day of: Progress Note Date: 05/15/23 Chief Complaint Chief Complaint: abdominal pain, shortness of breath/cough History of Present Illness History of Present Illness: 43 y/o female ill with productive cough, worsening shortness of breath, and abdominal pain. Pt underwent a Binh fundiplication , d/c'd 05/08. Has been feeling steadily poorly since d/c. Cough productive of blood tinged sputum, having worsening shortness of breath, running low grade temps. Having nausea, decreased appetite. Having pain around the incisional site, and some lower abdominal pain. Moving bowels well, no urinary symptoms. Seen in ER, w/u showed increasing markings on CXR. CTA of the chest with prob able bilateral pneumonia, small bilateral pleural effusions. CT of the abd/pelvis showed some inflammatory changes of the incisional area, with a possible developing abscess. Pt admitted to Dr Chandra's service. Pt receiving IV antibiotics. Pt's nausea partially controlled by promethazine, requests her home dose, 50 mgs. Pain being adequately controlled with [place] at this time. Past Medical Family Social History Past Med/Fam/Surg Hx: No changes since H&P Allergies: Allergies aspirin Allergy (Unknown, Verified 04/23/23 10:49) Reason: Drug allergy hydromorphone Allergy (Unknown, Verified 04/23/23 10:49) Reason: Drug allergy mesalamine [Asacol] Allergy (Unknown, Verified 04/23/23 10:49) Reason: Drug allergy metoclopramide Allergy (Unknown, Verified 04/23/23 10:49) Reason: Drug allergy ondansetron [From Zofran (as hydrochloride)] Allergy (Unknown, Verified 04/23/23 10:49) Reason: Drug allergy Penicillins Allergy (Unknown, Verified 04/23/23 10:49) Reason: Drug allergy prochlorperazine Allergy (Unknown, Verified 04/23/23 10:49) Reason: Drug allergy acetaminophen [From Percocet] Allergy (Verified 05/07/23 11:32) amoxicillin Allergy (Verified 04/23/23 10:49) citric acid Allergy (Verified 04/23/23 10:49) haloperidol [From Haldol] Allergy (Verified 04/23/23 10:49) omeprazole Allergy (Verified 04/23/23 10:49) oxycodone [From Percocet] Allergy (Verified 05/07/23 11:32) Review Of Systems ROS: No change since H&P Vital Signs Vital Signs: Vital Signs Temperature 98.2 F Pulse Rate [Bilateral Radial] 110 Pulse Rate [Bilateral Radial] 102 Pulse Rate 102 Respiratory Rate 20 Respiratory Rate 22 Respiratory Rate 22 Respiratory Rate 18 Respiratory Rate 20 Respiratory Rate 20 Blood Pressure [Right Arm] 154/92 Blood Pressure [Right Arm] 149/93 Blood Pressure 141/96 O2 Sat by Pulse Oximetry 95 O2 Sat by Pulse Oximetry 96 O2 Sat by Pulse Oximetry 96 Physical Exam Eyes: Normal Throat: Normal Respiratory: Normal; negative Wheezes Cardiovascular: Normal; negative Edema GI:Auscultation: Normal GI: Tenderness: RLQ (mil;d, no rebound. + ecchymosis of RLQ abd wall.) and Suprapubic (mild, no rebound) Speech Pattern: Clear and Appropriate Laboratory and Diagnostics 05/15/23 03:33 05/15/23 03:33 Labs: Laboratory WBC 8.3 X10^3/uL (3.6-10.0) 05/15/23 03:33 RBC 3.90 X10^6/uL (3.5-5.4) 05/15/23 03:33 Hgb 10.9 g/dL (12.0-16.0) L 05/15/23 03:33 Hct 33.1 % (36.0-47.0) L 05/15/23 03:33 MCV 84.8 fL (80.0-100.0) 05/15/23 03:33 MCH 27.9 pg (27.0-34.0) 05/15/23 03:33 MCHC 32.9 g/dL (33.0-35.0) L 05/15/23 03:33 RDW 14.5 % (11.6-16.5) 05/15/23 03:33 Plt Count 406 X10^3/uL (150.0-450.0) 05/15/23 03:33 MPV 7.0 fL (7.4-11.0) L 05/15/23 03:33 Neut % (Auto) 63.3 % (42.0-75.0) 05/15/23 03:33 Lymph % (Auto) 21.2 % (21.0-51.0) 05/15/23 03:33 [place] % (Auto) 5.8 % (0.0-13.0) 05/15/23 03:33 Eos % (Auto) 9.1 % (0.9-2.9) H 05/15/23 03:33 Baso % (Auto) 0.6 % (0.2-1.0) 05/15/23 03:33 Neut # (Auto) 5.2 x10^3/uL (2.2-4.8) H 05/15/23 03:33 Lymph # (Auto) 1.8 X10^3/uL (1.3-2.9) 05/15/23 03:33 [place] # (Auto) 0.5 x10^3/uL (0.3-0.8) 05/15/23 03:33 Eos # (Auto) 0.7 x10^3/uL (0.0-0.2) H 05/15/23 03:33 Baso # (Auto) 0.0 X10^3/uL (0.0-0.1) 05/15/23 03:33 Absolute Nucleated RBC 0.1 /100WBC 05/15/23 03:33 D-Dimer 3.86 ug/ml (0.0-0.57) H 05/15/23 03:33 Sodium 141 mmol/L (136-145) 05/15/23 03:33 Corrected Sodium 143 mmol/L (136-145) 05/15/23 03:33 Potassium 3.2 mmol/L (3.5-5.1) L 05/15/23 03:33 Chloride 101 mmol/L (98-107) 05/15/23 03:33 Carbon Dioxide 31.6 mmol/L (21-32) 05/15/23 03:33 BUN 5 mg/dL (7-18) L 05/15/23 03:33 Creatinine 0.72 mg/dL (0.55-1.02) 05/15/23 03:33 Est GFR (MDRD) Af Amer > 60 (>60) 05/15/23 03:33 Est GFR (MDRD) Non-Af > 60 (>60) 05/15/23 03:33 Glucose 171 mg/dL (65-99) H 05/15/23 03:33 POC Glucose (mg/dL) 159 mg/dL (65-99) H 05/15/23 13:15 Lactic Acid 0.8 mmol/L (0.4-2.0) 05/15/23 06:55 Calcium 8.3 mg/dL (8.5-10.1) L 05/15/23 03:33 Corrected Calcium 9.3 mg/dL (8.5-10.1) 05/15/23 03:33 Total Bilirubin 0.40 mg/dL (0.2-1.0) 05/15/23 03:33 AST 31 Units/L (15-37) 05/15/23 03:33 ALT 29 Units/L (12-78) 05/15/23 03:33 Alkaline Phosphatase 92 Units/L (46-116) 05/15/23 03:33 C-Reactive Protein 27.10 mg/L (0-3.0) H 05/15/23 06:55 B-Natriuretic Peptide 151 pg/mL (0-79) H 05/15/23 03:33 Total Protein 6.5 g/dL (6.4-8.2) 05/15/23 03:33 Albumin 2.8 g/dL (3.4-5.0) L 05/15/23 03:33 Globulin 3.7 g/dL (2.5-4.5) 05/15/23 03:33 Albumin/Globulin Ratio 0.8 Ratio (1.1-2.1) L 05/15/23 03:33 Assessment and Plan 1: Bilateral pneumonia - continue O2, IV antibiotics. 2: Abdominal wall abscess -Continue IV antibiotics. Tolerating po diet. Management per surgery. 3: Diabetes mellitus - continue daily insulin, prn insulin coverage. Problem Patient Problems: Patient Problems (Updated 05/15/23 @ 10:32 by Jeimy Iniguez) Pneumonia (Acute) J18.9 Abdominal abscess (Acute) Bilateral pleural effusion (Acute) J90 Multiple pulmonary nodules (Acute) R91.8
[2023-05-15] MEDS: PULMICORT NEB TX 0.5 MG NEB SCH (20:36)
[2023-05-15] MEDS: SNACK - Diabetic Appropriate PO SCH (21:00)
[2023-05-15] MEDS: ATIVAN TAB 1 MG PO SCH (21:06)
[2023-05-15] MEDS: NovoLIN R (or HumuLIN R) SUBCUT PRN (21:27)
[2023-05-15] MEDS: LANTUS SC SCH (21:31)
[2023-05-16] MEDS: PHENERGAN TAB 25 MG PO PRN (05:47)
[2023-05-16 06:29] LABS: BASOPHILS % (AUTO) 0.5 % (0.2-1.0); EOSINOPHILS # (AUTO) 0.6 x10^3/uL (0.0-0.2); HEMATOCRIT 28.8 % (36.0-47.0); HEMOGLOBIN 9.5 g/dL (12.0-16.0); LYMPHOCYTES # (AUTO) 2.4 X10^3/uL (1.3-2.9); LYMPHOCYTES % (AUTO) 33.1 % (21.0-51.0); MEAN CORPUSCULAR HEMOGLOBIN 28.1 pg (27.0-34.0); MEAN CORPUSCULAR VOLUME 85.1 fL (80.0-100.0); MEAN PLATELET VOLUME 7.1 fL (7.4-11.0); MONOCYTES # (AUTO) 0.5 x10^3/uL (0.3-0.8); MONOCYTES % (AUTO) 6.1 % (0.0-13.0); NEUTROPHILS # (AUTO) 3.8 x10^3/uL (2.2-4.8); NEUTROPHILS % (AUTO) 52.3 % (42.0-75.0); PLATELET COUNT 331 X10^3/uL (150.0-450.0); RED BLOOD COUNT 3.38 X10^6/uL (3.5-5.4); RED CELL DISTRIBUTION WIDTH 14.5 % (11.6-16.5); WHITE BLOOD COUNT 7.3 X10^3/uL (3.6-10.0)
[2023-05-16 06:46] LABS: ALANINE AMINOTRANSFERASE 21 Units/L (12-78); ALBUMIN 2.4 g/dL (3.4-5.0); ALKALINE PHOSPHATASE 84 Units/L (46-116); ASPARTATE AMINO TRANSFERASE 22 Units/L (15-37); BLOOD UREA NITROGEN 2 mg/dL (7-18); CALCIUM 7.9 mg/dL (8.5-10.1); CHLORIDE 102 mmol/L (98-107); COR CA(FOR HYPOALB) 9.2 mg/dL (8.5-10.1); COR NA(FOR HYPERGLY) 142 mmol/L (136-145); CREATININE 0.75 mg/dL (0.55-1.02); GLUCOSE 238 mg/dL (65-99); POTASSIUM 3.2 mmol/L (3.5-5.1); SODIUM 139 mmol/L (136-145); TOTAL PROTEIN 5.8 g/dL (6.4-8.2); eGFR NON BLACK RACES > 60 (>60)
--- NOTE | 2023-05-16 08:46 | DR.PROGNOT ---
HOSPITAL PROGRESS NOTE Progress Note for Day of: Progress Note Date: 05/16/23 Chief Complaint Chief Complaint: abdominal pain, shortness of breath/cough History of Present Illness History of Present Illness: feeling better today .less cough and shortness of breath, moderate abdominal pain. Pt underwent a Binh funduplication , d/c'd 05/08. Having nausea, decreased appetite. Having pain around the incisional site, and some lower abdominal pain. Moving bowels well, no urinary symptoms. Seen in ER, w/u showed increasing markings on CXR. CTA of the chest with probable bilateral pneumonia, small bilateral pleural effusions. CT of the abd/pelvis showed some inflammatory changes of the incisional area, Afebrile today with normal lab work. Past Medical Family Social History Past Med/Fam/Surg Hx: No changes since H&P Allergies: Allergies aspirin Allergy (Unknown, Verified 04/23/23 10:49) Reason: Drug allergy hydromorphone Allergy (Unknown, Verified 04/23/23 10:49) Reason: Drug allergy mesalamine [Asacol] Allergy (Unknown, Verified 04/23/23 10:49) Reason: Drug allergy metoclopramide Allergy (Unknown, Verified 04/23/23 10:49) Reason: Drug allergy ondansetron [From Zofran (as hydrochloride)] Allergy (Unknown, Verified 04/23/23 10:49) Reason: Drug allergy Penicillins Allergy (Unknown, Verified 04/23/23 10:49) Reason: Drug allergy prochlorperazine Allergy (Unknown, Verified 04/23/23 10:49) Reason: Drug allergy acetaminophen [From Percocet] Allergy (Verified 05/07/23 11:32) amoxicillin Allergy (Verified 04/23/23 10:49) citric acid Allergy (Verified 04/23/23 10:49) haloperidol [From Haldol] Allergy (Verified 04/23/23 10:49) omeprazole Allergy (Verified 04/23/23 10:49) oxycodone [From Percocet] Allergy (Verified 05/07/23 11:32) Review Of Systems ROS: No change since H&P Vital Signs Vital Signs: Vital Signs Temperature 99.3 F Temperature 98.5 F Pulse Rate [Bilateral Radial] 114 Pulse Rate [Bilateral Radial] 107 Respiratory Rate 22 Respiratory Rate 21 Respiratory Rate 21 Respiratory Rate 18 Blood Pressure [Right Arm] 104/59 Blood Pressure [Right Arm] 112/63 O2 Sat by Pulse Oximetry 92 O2 Sat by Pulse Oximetry 95 Physical Exam Eyes: Normal Throat: Normal Respiratory: Normal; negative Wheezes Cardiovascular: Normal; negative Edema GI:Auscultation: Normal GI: Tenderness: RLQ (mild no rebound. + ecchymosis of RLQ abd wall.), Suprapubic (mild, no rebound) and Other (Soft flat abdomen with mild diffuse tenderness, bowel sounds present, no wound infection.) Speech Pattern: Clear and Appropriate Laboratory and Diagnostics 05/16/23 06:13 05/16/23 06:13 Labs: Laboratory WBC 7.3 X10^3/uL (3.6-10.0) 05/16/23 06:13 RBC 3.38 X10^6/uL (3.5-5.4) L 05/16/23 06:13 Hgb 9.5 g/dL (12.0-16.0) L 05/16/23 06:13 Hct 28.8 % (36.0-47.0) L 05/16/23 06:13 MCV 85.1 fL (80.0-100.0) 05/16/23 06:13 MCH 28.1 pg (27.0-34.0) 05/16/23 06:13 MCHC 33.0 g/dL (33.0-35.0) 05/16/23 06:13 RDW 14.5 % (11.6-16.5) 05/16/23 06:13 Plt Count 331 X10^3/uL (150.0-450.0) 05/16/23 06:13 MPV 7.1 fL (7.4-11.0) L 05/16/23 06:13 Neut % (Auto) 52.3 % (42.0-75.0) 05/16/23 06:13 Lymph % (Auto) 33.1 % (21.0-51.0) 05/16/23 06:13 [place] % (Auto) 6.1 % (0.0-13.0) 05/16/23 06:13 Eos % (Auto) 8.0 % (0.9-2.9) H 05/16/23 06:13 Baso % (Auto) 0.5 % (0.2-1.0) 05/16/23 06:13 Neut # (Auto) 3.8 x10^3/uL (2.2-4.8) 05/16/23 06:13 Lymph # (Auto) 2.4 X10^3/uL (1.3-2.9) 05/16/23 06:13 [place] # (Auto) 0.5 x10^3/uL (0.3-0.8) 05/16/23 06:13 Eos # (Auto) 0.6 x10^3/uL (0.0-0.2) H 05/16/23 06:13 Baso # (Auto) 0.0 X10^3/uL (0.0-0.1) 05/16/23 06:13 Absolute Nucleated RBC 0.1 /100WBC 05/16/23 06:13 D-Dimer 3.86 ug/ml (0.0-0.57) H 05/15/23 03:33 Sodium 139 mmol/L (136-145) 05/16/23 06:13 Corrected Sodium 142 mmol/L (136-145) 05/16/23 06:13 Potassium 3.2 mmol/L (3.5-5.1) L 05/16/23 06:13 Chloride 102 mmol/L (98-107) 05/16/23 06:13 Carbon Dioxide 26.0 mmol/L (21-32) 05/16/23 06:13 BUN 2 mg/dL (7-18) L 05/16/23 06:13 Creatinine 0.75 mg/dL (0.55-1.02) 05/16/23 06:13 Est GFR (MDRD) Af Amer > 60 (>60) 05/16/23 06:13 Est GFR (MDRD) Non-Af > 60 (>60) 05/16/23 06:13 Glucose 238 mg/dL (65-99) H 05/16/23 06:13 POC Glucose (mg/dL) 215 mg/dL (65-99) H 05/16/23 05:36 Lactic Acid 0.8 mmol/L (0.4-2.0) 05/15/23 06:55 Calcium 7.9 mg/dL (8.5-10.1) L 05/16/23 06:13 Corrected Calcium 9.2 mg/dL (8.5-10.1) 05/16/23 06:13 Magnesium 1.4 mg/dL (2.0-2.9) L 05/16/23 06:13 Total Bilirubin 0.20 mg/dL (0.2-1.0) 05/16/23 06:13 AST 22 Units/L (15-37) 05/16/23 06:13 ALT 21 Units/L (12-78) 05/16/23 06:13 Alkaline Phosphatase 84 Units/L (46-116) 05/16/23 06:13 C-Reactive Protein 27.10 mg/L (0-3.0) H 05/15/23 06:55 B-Natriuretic Peptide 151 pg/mL (0-79) H 05/15/23 03:33 Total Protein 5.8 g/dL (6.4-8.2) L 05/16/23 06:13 Albumin 2.4 g/dL (3.4-5.0) L 05/16/23 06:13 Globulin 3.4 g/dL (2.5-4.5) 05/16/23 06:13 Albumin/Globulin Ratio 0.7 Ratio (1.1-2.1) L 05/16/23 06:13 Assessment and Plan 1: Bilateral pneumonia - continue O2, IV antibiotics. DuoNeb and pulmonary care. 2: Incisional pain, to Continue IV antibiotics. Tolerating po diet. On Lovenox for DVT prophylaxis. 3: Diabetes mellitus - continue daily insulin, prn insulin coverage. Medical consultation was ordered.. Problem Patient Problems: Patient Problems (Updated 05/15/23 @ 10:32 by Jeimy Iniguez) Pneumonia (Acute) J18.9 Abdominal abscess (Acute) Bilateral pleural effusion (Acute) J90 Multiple pulmonary nodules (Acute) R91.8
[2023-05-16] MEDS: CELEXA PO SCH (09:22)
[2023-05-16] MEDS: LANTUS SC SCH (09:22)
[2023-05-16] MEDS: PriLOSEC PO SCH (09:23)
[2023-05-16] MEDS ORDERED: CONSULT PHARMACY - POTASSIUM & MAGNESIUM XX SCH (10:00)
[2023-05-16] MEDS: MAG-OX TAB PO SCH (10:37)
[2023-05-16] MEDS: K-DUR TAB 20 MEQ PO SCH (10:37)
--- NOTE | 2023-05-16 11:37 | DR.PROGNOT ---
HOSPITAL PROGRESS NOTE Progress Note for Day of: Progress Note Date: 05/16/23 Chief Complaint Chief Complaint: abdominal pain, shortness of breath/cough History of Present Illness History of Present Illness: PT doing ok. Feeling shaky, jittery today. Ambulated around room, felt some dyspnea with it. Also recently treated for thrush prior to admission, would like to continue therapy. Abdominal pain so so. Past Medical Family Social History Past Med/Fam/Surg Hx: No changes since H&P Allergies: Allergies aspirin Allergy (Unknown, Verified 04/23/23 10:49) Reason: Drug allergy hydromorphone Allergy (Unknown, Verified 04/23/23 10:49) Reason: Drug allergy mesalamine [Asacol] Allergy (Unknown, Verified 04/23/23 10:49) Reason: Drug allergy metoclopramide Allergy (Unknown, Verified 04/23/23 10:49) Reason: Drug allergy ondansetron [From Zofran (as hydrochloride)] Allergy (Unknown, Verified 04/23/23 10:49) Reason: Drug allergy Penicillins Allergy (Unknown, Verified 04/23/23 10:49) Reason: Drug allergy prochlorperazine Allergy (Unknown, Verified 04/23/23 10:49) Reason: Drug allergy acetaminophen [From Percocet] Allergy (Verified 05/07/23 11:32) amoxicillin Allergy (Verified 04/23/23 10:49) citric acid Allergy (Verified 04/23/23 10:49) haloperidol [From Haldol] Allergy (Verified 04/23/23 10:49) omeprazole Allergy (Verified 04/23/23 10:49) oxycodone [From Percocet] Allergy (Verified 05/07/23 11:32) Review Of Systems ROS: No change since H&P Vital Signs Vital Signs: Vital Signs Temperature 99.3 F Temperature 98.5 F Pulse Rate [Bilateral Radial] 114 Pulse Rate [Bilateral Radial] 107 Respiratory Rate 21 Respiratory Rate 21 Respiratory Rate 22 Respiratory Rate 21 Respiratory Rate 21 Respiratory Rate 18 Blood Pressure [Right Arm] 104/59 Blood Pressure [Right Arm] 112/63 O2 Sat by Pulse Oximetry 92 O2 Sat by Pulse Oximetry 95 Physical Exam Eyes: Normal Nose: Normal Throat: Normal (no obvious thrush) Respiratory: [place] (bibasilar) Cardiovascular: Normal; negative Edema GI:Auscultation: Normal GI: Tenderness: RLQ (mild no rebound. + ecchymosis of RLQ abd wall.), Suprapubic (mild, no rebound) and Other (Soft flat abdomen with mild diffuse tenderness, bowel sounds present, no wound infection.) Speech Pattern: Clear and Appropriate Laboratory and Diagnostics 05/16/23 06:13 05/16/23 06:13 Labs: Laboratory WBC 7.3 X10^3/uL (3.6-10.0) 05/16/23 06:13 RBC 3.38 X10^6/uL (3.5-5.4) L 05/16/23 06:13 Hgb 9.5 g/dL (12.0-16.0) L 05/16/23 06:13 Hct 28.8 % (36.0-47.0) L 05/16/23 06:13 MCV 85.1 fL (80.0-100.0) 05/16/23 06:13 MCH 28.1 pg (27.0-34.0) 05/16/23 06:13 MCHC 33.0 g/dL (33.0-35.0) 05/16/23 06:13 RDW 14.5 % (11.6-16.5) 05/16/23 06:13 Plt Count 331 X10^3/uL (150.0-450.0) 05/16/23 06:13 MPV 7.1 fL (7.4-11.0) L 05/16/23 06:13 Neut % (Auto) 52.3 % (42.0-75.0) 05/16/23 06:13 Lymph % (Auto) 33.1 % (21.0-51.0) 05/16/23 06:13 [place] % (Auto) 6.1 % (0.0-13.0) 05/16/23 06:13 Eos % (Auto) 8.0 % (0.9-2.9) H 05/16/23 06:13 Baso % (Auto) 0.5 % (0.2-1.0) 05/16/23 06:13 Neut # (Auto) 3.8 x10^3/uL (2.2-4.8) 05/16/23 06:13 Lymph # (Auto) 2.4 X10^3/uL (1.3-2.9) 05/16/23 06:13 [place] # (Auto) 0.5 x10^3/uL (0.3-0.8) 05/16/23 06:13 Eos # (Auto) 0.6 x10^3/uL (0.0-0.2) H 05/16/23 06:13 Baso # (Auto) 0.0 X10^3/uL (0.0-0.1) 05/16/23 06:13 Absolute Nucleated RBC 0.1 /100WBC 05/16/23 06:13 D-Dimer 3.86 ug/ml (0.0-0.57) H 05/15/23 03:33 Sodium 139 mmol/L (136-145) 05/16/23 06:13 Corrected Sodium 142 mmol/L (136-145) 05/16/23 06:13 Potassium 3.2 mmol/L (3.5-5.1) L 05/16/23 06:13 Chloride 102 mmol/L (98-107) 05/16/23 06:13 Carbon Dioxide 26.0 mmol/L (21-32) 05/16/23 06:13 BUN 2 mg/dL (7-18) L 05/16/23 06:13 Creatinine 0.75 mg/dL (0.55-1.02) 05/16/23 06:13 Est GFR (MDRD) Af Amer > 60 (>60) 05/16/23 06:13 Est GFR (MDRD) Non-Af > 60 (>60) 05/16/23 06:13 Glucose 238 mg/dL (65-99) H 05/16/23 06:13 POC Glucose (mg/dL) 193 mg/dL (65-99) H 05/16/23 10:44 Lactic Acid 0.8 mmol/L (0.4-2.0) 05/15/23 06:55 Calcium 7.9 mg/dL (8.5-10.1) L 05/16/23 06:13 Corrected Calcium 9.2 mg/dL (8.5-10.1) 05/16/23 06:13 Magnesium 1.4 mg/dL (2.0-2.9) L 03/09/24 06:13 Total Bilirubin 0.20 mg/dL (0.2-1.0) 05/16/23 06:13 AST 22 Units/L (15-37) 05/16/23 06:13 ALT 21 Units/L (12-78) 05/16/23 06:13 Alkaline Phosphatase 84 Units/L (46-116) 05/16/23 06:13 C-Reactive Protein 27.10 mg/L (0-3.0) H 05/15/23 06:55 B-Natriuretic Peptide 151 pg/mL (0-79) H 05/15/23 03:33 Total Protein 5.8 g/dL (6.4-8.2) L 05/16/23 06:13 Albumin 2.4 g/dL (3.4-5.0) L 05/16/23 06:13 Globulin 3.4 g/dL (2.5-4.5) 05/16/23 06:13 Albumin/Globulin Ratio 0.7 Ratio (1.1-2.1) L 05/16/23 06:13 Assessment and Plan 1: Bilateral pneumonia - continue O2, IV antibiotics. DuoNeb and pulmonary care. 2: Incisional pain, to Continue IV antibiotics. Tolerating po diet. On Lovenox for DVT prophylaxis. 3: Diabetes mellitus - continue daily insulin, prn insulin coverage. Medical consultation was ordered.. 4: Recent thrush - will add nystatin po QID. 5: Anxiety - will increase lorazepam to TID. Problem Patient Problems: Patient Problems (Updated 05/15/23 @ 10:32 by Jeimy Iniguez) Pneumonia (Acute) J18.9 Abdominal abscess (Acute) Bilateral pleural effusion (Acute) J90 Multiple pulmonary nodules (Acute) R91.8
[2023-05-16] MEDS: ATIVAN TAB 1 MG PO SCH (13:14)
[2023-05-16] MEDS: NYSTATIN SUSP PO SCH (13:14)
[2023-05-16] MEDS ORDERED: SNACK - Diabetic Appropriate PO SCH (20:00)
[2023-05-17] MEDS: VISTARIL PO PRN (00:54)
[2023-05-17 05:50] LABS: BASOPHILS # (AUTO) 0.1 X10^3/uL (0.0-0.1); BASOPHILS % (AUTO) 0.7 % (0.2-1.0); EOSINOPHILS # (AUTO) 0.9 x10^3/uL (0.0-0.2); EOSINOPHILS % (AUTO) 9.6 % (0.9-2.9); HEMATOCRIT 29.7 % (36.0-47.0); HEMOGLOBIN 9.8 g/dL (12.0-16.0); LYMPHOCYTES # (AUTO) 2.2 X10^3/uL (1.3-2.9); LYMPHOCYTES % (AUTO) 24.8 % (21.0-51.0); MEAN CORPUSCULAR HEMOGLOBIN 27.8 pg (27.0-34.0); MEAN CORPUSCULAR HGB CONC 32.8 g/dL (33.0-35.0); MEAN CORPUSCULAR VOLUME 84.7 fL (80.0-100.0); MEAN PLATELET VOLUME 7.2 fL (7.4-11.0); MONOCYTES # (AUTO) 0.4 x10^3/uL (0.3-0.8); MONOCYTES % (AUTO) 4.7 % (0.0-13.0); NEUTROPHILS # (AUTO) 5.5 x10^3/uL (2.2-4.8); NEUTROPHILS % (AUTO) 60.2 % (42.0-75.0); PLATELET COUNT 378 X10^3/uL (150.0-450.0); RED BLOOD COUNT 3.51 X10^6/uL (3.5-5.4); RED CELL DISTRIBUTION WIDTH 14.6 % (11.6-16.5); WHITE BLOOD COUNT 9.1 X10^3/uL (3.6-10.0)
[2023-05-17 05:58] LABS: ALANINE AMINOTRANSFERASE 20 Units/L (12-78); ALBUMIN 2.4 g/dL (3.4-5.0); ALKALINE PHOSPHATASE 85 Units/L (46-116); ASPARTATE AMINO TRANSFERASE 22 Units/L (15-37); BLOOD UREA NITROGEN 2 mg/dL (7-18); CALCIUM 7.8 mg/dL (8.5-10.1); CARBON DIOXIDE 27.9 mmol/L (21-32); CHLORIDE 104 mmol/L (98-107); COR CA(FOR HYPOALB) 9.1 mg/dL (8.5-10.1); COR NA(FOR HYPERGLY) 144 mmol/L (136-145); GLUCOSE 230 mg/dL (65-99); MAGNESIUM 1.6 mg/dL (2.0-2.9); POTASSIUM 4.1 mmol/L (3.5-5.1); SODIUM 141 mmol/L (136-145); eGFR NON BLACK RACES > 60 (>60)
[2023-05-17] MEDS ORDERED: CONSULT PHARMACY - POTASSIUM & MAGNESIUM XX SCH (07:00)
[2023-05-17] MEDS: MAG-OX TAB PO SCH (09:18)
--- NOTE | 2023-05-17 09:44 | DR.PROGNOT ---
HOSPITAL PROGRESS NOTE Progress Note for Day of: Progress Note Date: 05/17/23 Chief Complaint Chief Complaint: abdominal pain is less . c/o shortness of breath and moderate cough .. had normal BM .. BS 230..WBC 9.1..O2 94.. Mg 1.6 History of Present Illness History of Present Illness: PT doing ok . Ambulated around room, felt some dyspnea with it. Also recently treated for thrush prior to admission, would like to continue therapy. Past Medical Family Social History Past Med/Fam/Surg Hx: No changes since H&P Allergies: Allergies aspirin Allergy (Unknown, Verified 04/23/23 10:49) Reason: Drug allergy hydromorphone Allergy (Unknown, Verified 04/23/23 10:49) Reason: Drug allergy mesalamine [Asacol] Allergy (Unknown, Verified 04/23/23 10:49) Reason: Drug allergy metoclopramide Allergy (Unknown, Verified 04/23/23 10:49) Reason: Drug allergy ondansetron [From Zofran (as hydrochloride)] Allergy (Unknown, Verified 04/23/23 10:49) Reason: Drug allergy Penicillins Allergy (Unknown, Verified 04/23/23 10:49) Reason: Drug allergy prochlorperazine Allergy (Unknown, Verified 04/23/23 10:49) Reason: Drug allergy acetaminophen [From Percocet] Allergy (Verified 05/07/23 11:32) amoxicillin Allergy (Verified 04/23/23 10:49) citric acid Allergy (Verified 04/23/23 10:49) haloperidol [From Haldol] Allergy (Verified 04/23/23 10:49) omeprazole Allergy (Verified 04/23/23 10:49) oxycodone [From Percocet] Allergy (Verified 05/07/23 11:32) Review Of Systems ROS: No change since H&P Vital Signs Vital Signs: Vital Signs Temperature 98.6 F Temperature 98.8 F Pulse Rate [Bilateral Radial] 121 Pulse Rate [Bilateral Radial] 118 Pulse Rate 125 Respiratory Rate 20 Respiratory Rate 20 Respiratory Rate 18 Respiratory Rate 20 Respiratory Rate 20 Respiratory Rate 17 Respiratory Rate 22 Blood Pressure [Right Arm] 123/76 Blood Pressure [Right Arm] 125/78 O2 Sat by Pulse Oximetry 94 O2 Sat by Pulse Oximetry 93 O2 Sat by Pulse Oximetry 96 Physical Exam Eyes: Normal Nose: Normal Throat: Normal (no obvious thrush) Respiratory: Rales (bibasilar) Cardiovascular: Normal; negative Edema GI:Auscultation: Normal GI: Tenderness: RLQ (mild no rebound. + ecchymosis of RLQ abd wall.), Suprapubic (mild, no rebound) and Other (Soft flat abdomen with mild diffuse tenderness, bowel sounds present, no wound infection.) Speech Pattern: Clear and Appropriate Laboratory and Diagnostics 05/17/23 05:27 05/17/23 05:27 Labs: 05/15/23 06:55 Blood Blood Culture - Preliminary 05/15/23 06:48 Blood Blood Culture - Preliminary Laboratory WBC 9.1 X10^3/uL (3.6-10.0) 05/17/23 05:27 RBC 3.51 X10^6/uL (3.5-5.4) 05/17/23 05:27 Hgb 9.8 g/dL (12.0-16.0) L 05/17/23 05:27 Hct 29.7 % (36.0-47.0) L 05/17/23 05:27 MCV 84.7 fL (80.0-100.0) 05/17/23 05:27 MCH 27.8 pg (27.0-34.0) 05/17/23 05:27 MCHC 32.8 g/dL (33.0-35.0) L 05/17/23 05:27 RDW 14.6 % (11.6-16.5) 05/17/23 05:27 Plt Count 378 X10^3/uL (150.0-450.0) 05/17/23 05:27 MPV 7.2 fL (7.4-11.0) L 05/17/23 05:27 Neut % (Auto) 60.2 % (42.0-75.0) 05/17/23 05:27 Lymph % (Auto) 24.8 % (21.0-51.0) 05/17/23 05:27 [place] % (Auto) 4.7 % (0.0-13.0) 05/17/23 05:27 Eos % (Auto) 9.6 % (0.9-2.9) H 05/17/23 05:27 Baso % (Auto) 0.7 % (0.2-1.0) 05/17/23 05:27 Neut # (Auto) 5.5 x10^3/uL (2.2-4.8) H 05/17/23 05:27 Lymph # (Auto) 2.2 X10^3/uL (1.3-2.9) 05/17/23 05:27 [place] # (Auto) 0.4 x10^3/uL (0.3-0.8) 05/17/23 05:27 Eos # (Auto) 0.9 x10^3/uL (0.0-0.2) H 05/17/23 05:27 Baso # (Auto) 0.1 X10^3/uL (0.0-0.1) 05/17/23 05:27 Absolute Nucleated RBC 0.0 /100WBC 05/17/23 05:27 D-Dimer 3.86 ug/ml (0.0-0.57) H 05/15/23 03:33 Sodium 141 mmol/L (136-145) 05/17/23 05:27 Corrected Sodium 144 mmol/L (136-145) 05/17/23 05:27 Potassium 4.1 mmol/L (3.5-5.1) 05/17/23 05:27 Chloride 104 mmol/L (98-107) 05/17/23 05:27 Carbon Dioxide 27.9 mmol/L (21-32) 05/17/23 05:27 BUN 2 mg/dL (7-18) L 05/17/23 05:27 Creatinine 0.60 mg/dL (0.55-1.02) 05/17/23 05:27 Est GFR (MDRD) Af Amer > 60 (>60) 05/17/23 05:27 Est GFR (MDRD) Non-Af > 60 (>60) 05/17/23 05:27 Glucose 230 mg/dL (65-99) H 05/17/23 05:27 POC Glucose (mg/dL) 234 mg/dL (65-99) H 05/17/23 05:11 Lactic Acid 0.8 mmol/L (0.4-2.0) 05/15/23 06:55 Calcium 7.8 mg/dL (8.5-10.1) L 05/17/23 05:27 Corrected Calcium 9.1 mg/dL (8.5-10.1) 05/17/23 05:27 Magnesium 1.6 mg/dL (2.0-2.9) L 05/17/23 05:27 Total Bilirubin 0.20 mg/dL (0.2-1.0) 05/17/23 05:27 AST 22 Units/L (15-37) 05/17/23 05:27 ALT 20 Units/L (12-78) 05/17/23 05:27 Alkaline Phosphatase 85 Units/L (46-116) 05/17/23 05:27 C-Reactive Protein 27.10 mg/L (0-3.0) H 05/15/23 06:55 B-Natriuretic Peptide 151 pg/mL (0-79) H 05/15/23 03:33 Total Protein 6.0 g/dL (6.4-8.2) L 05/17/23 05:27 Albumin 2.4 g/dL (3.4-5.0) L 05/17/23 05:27 Globulin 3.6 g/dL (2.5-4.5) 05/17/23 05:27 Albumin/Globulin Ratio 0.7 Ratio (1.1-2.1) L 05/17/23 05:27 Assessment and Plan 1: Bilateral pneumonia - continue O2, IV antibiotics. DuoNeb and pulmonary care. 2: Incisional pain, to Continue IV antibiotics. Tolerating po diet. On Lovenox for DVT prophylaxis. 3: Diabetes mellitus - continue daily insulin, prn insulin coverage. Medical consultation was ordered.. 4: Recent thrush - will add nystatin po QID. 5: Anxiety - will increase lorazepam to TID. Problem Patient Problems: Patient Problems Pneumonia (Acute) J18.9 Abdominal abscess (Acute) Bilateral pleural effusion (Acute) J90 Multiple pulmonary nodules (Acute) R91.8
--- NOTE | 2023-05-17 10:03 | DR.PROGNOT ---
HOSPITAL PROGRESS NOTE Progress Note for Day of: Progress Note Date: 05/17/23 Chief Complaint Chief Complaint: abdominal pain is less . c/o shortness of breath and moderate cough .. had normal BM .. BS 230..WBC 9.1..O2 94.. Mg 1.6 History of Present Illness History of Present Illness: PT doing ok Sleepy this am, became agitated last pm, was given po vistaril. Breathing ok. No chest pain this am. Abdomen doing better. Past Medical Family Social History Past Med/Fam/Surg Hx: No changes since H&P Allergies: Allergies aspirin Allergy (Unknown, Verified 04/23/23 10:49) Reason: Drug allergy hydromorphone Allergy (Unknown, Verified 04/23/23 10:49) Reason: Drug allergy mesalamine [Asacol] Allergy (Unknown, Verified 04/23/23 10:49) Reason: Drug allergy metoclopramide Allergy (Unknown, Verified 04/23/23 10:49) Reason: Drug allergy ondansetron [From Zofran (as hydrochloride)] Allergy (Unknown, Verified 04/23/23 10:49) Reason: Drug allergy Penicillins Allergy (Unknown, Verified 04/23/23 10:49) Reason: Drug allergy prochlorperazine Allergy (Unknown, Verified 04/23/23 10:49) Reason: Drug allergy acetaminophen [From Percocet] Allergy (Verified 05/07/23 11:32) amoxicillin Allergy (Verified 04/23/23 10:49) citric acid Allergy (Verified 04/23/23 10:49) haloperidol [From Haldol] Allergy (Verified 04/23/23 10:49) omeprazole Allergy (Verified 04/23/23 10:49) oxycodone [From Percocet] Allergy (Verified 05/07/23 11:32) Review Of Systems ROS: No change since H&P Vital Signs Vital Signs: Vital Signs Temperature 98.6 F Temperature 98.8 F Pulse Rate [Bilateral Radial] 121 Pulse Rate [Bilateral Radial] 118 Pulse Rate 125 Respiratory Rate 20 Respiratory Rate 20 Respiratory Rate 18 Respiratory Rate 20 Respiratory Rate 20 Respiratory Rate 17 Blood Pressure [Right Arm] 123/76 Blood Pressure [Right Arm] 125/78 O2 Sat by Pulse Oximetry 94 O2 Sat by Pulse Oximetry 93 O2 Sat by Pulse Oximetry 96 Physical Exam Eyes: Normal Nose: Normal Throat: Normal Respiratory: Normal Cardiovascular: Normal; negative Edema GI:Auscultation: Normal GI: Tenderness: Diffuse, Suprapubic (mild, no rebound) and Other (Soft flat abdomen with mild diffuse tenderness, bowel sounds present, no wound infection.) Speech Pattern: Clear and Appropriate Laboratory and Diagnostics 05/17/23 05:27 05/17/23 05:27 Labs: 05/15/23 06:55 Blood Blood Culture - Preliminary 05/15/23 06:48 Blood Blood Culture - Preliminary Laboratory WBC 9.1 X10^3/uL (3.6-10.0) 05/17/23 05:27 RBC 3.51 X10^6/uL (3.5-5.4) 05/17/23 05:27 Hgb 9.8 g/dL (12.0-16.0) L 05/17/23 05:27 Hct 29.7 % (36.0-47.0) L 05/17/23 05:27 MCV 84.7 fL (80.0-100.0) 05/17/23 05:27 MCH 27.8 pg (27.0-34.0) 05/17/23 05:27 MCHC 32.8 g/dL (33.0-35.0) L 05/17/23 05:27 RDW 14.6 % (11.6-16.5) 05/17/23 05:27 Plt Count 378 X10^3/uL (150.0-450.0) 05/17/23 05:27 MPV 7.2 fL (7.4-11.0) L 05/17/23 05:27 Neut % (Auto) 60.2 % (42.0-75.0) 05/17/23 05:27 Lymph % (Auto) 24.8 % (21.0-51.0) 05/17/23 05:27 [place] % (Auto) 4.7 % (0.0-13.0) 05/17/23 05:27 Eos % (Auto) 9.6 % (0.9-2.9) H 05/17/23 05:27 Baso % (Auto) 0.7 % (0.2-1.0) 05/17/23 05:27 Neut # (Auto) 5.5 x10^3/uL (2.2-4.8) H 05/17/23 05:27 Lymph # (Auto) 2.2 X10^3/uL (1.3-2.9) 05/17/23 05:27 [place] # (Auto) 0.4 x10^3/uL (0.3-0.8) 05/17/23 05:27 Eos # (Auto) 0.9 x10^3/uL (0.0-0.2) H 05/17/23 05:27 Baso # (Auto) 0.1 X10^3/uL (0.0-0.1) 05/17/23 05:27 Absolute Nucleated RBC 0.0 /100WBC 05/17/23 05:27 D-Dimer 3.86 ug/ml (0.0-0.57) H 05/15/23 03:33 Sodium 141 mmol/L (136-145) 05/17/23 05:27 Corrected Sodium 144 mmol/L (136-145) 05/17/23 05:27 Potassium 4.1 mmol/L (3.5-5.1) 05/17/23 05:27 Chloride 104 mmol/L (98-107) 05/17/23 05:27 Carbon Dioxide 27.9 mmol/L (21-32) 05/17/23 05:27 BUN 2 mg/dL (7-18) L 05/17/23 05:27 Creatinine 0.60 mg/dL (0.55-1.02) 05/17/23 05:27 Est GFR (MDRD) Af Amer > 60 (>60) 05/17/23 05:27 Est GFR (MDRD) Non-Af > 60 (>60) 05/17/23 05:27 Glucose 230 mg/dL (65-99) H 05/17/23 05:27 POC Glucose (mg/dL) 234 mg/dL (65-99) H 05/17/23 05:11 Lactic Acid 0.8 mmol/L (0.4-2.0) 05/15/23 06:55 Calcium 7.8 mg/dL (8.5-10.1) L 05/17/23 05:27 Corrected Calcium 9.1 mg/dL (8.5-10.1) 05/17/23 05:27 Magnesium 1.6 mg/dL (2.0-2.9) L 05/17/23 05:27 Total Bilirubin 0.20 mg/dL (0.2-1.0) 05/17/23 05:27 AST 22 Units/L (15-37) 05/17/23 05:27 ALT 20 Units/L (12-78) 05/17/23 05:27 Alkaline Phosphatase 85 Units/L (46-116) 05/17/23 05:27 C-Reactive Protein 27.10 mg/L (0-3.0) H 05/15/23 06:55 B-Natriuretic Peptide 151 pg/mL (0-79) H 05/15/23 03:33 Total Protein 6.0 g/dL (6.4-8.2) L 05/17/23 05:27 Albumin 2.4 g/dL (3.4-5.0) L 05/17/23 05:27 Globulin 3.6 g/dL (2.5-4.5) 05/17/23 05:27 Albumin/Globulin Ratio 0.7 Ratio (1.1-2.1) L 05/17/23 05:27 Assessment and Plan 1: Bilateral pneumonia - continue O2, IV antibiotics. DuoNeb and pulmonary care. 2: Incisional pain, to Continue IV antibiotics. Tolerating po diet. On Lovenox for DVT prophylaxis. 3: Diabetes mellitus - continue daily insulin, prn insulin coverage. Medical consultation was ordered.. Problem Patient Problems: Patient Problems (Updated 05/15/23 @ 10:32 by Jeimy Iniguez) Pneumonia (Acute) J18.9 Abdominal abscess (Acute) Bilateral pleural effusion (Acute) J90 Multiple pulmonary nodules (Acute) R91.8
[2023-05-17] MEDS: MAG-OX TAB ONE (10:19)
--- NOTE | 2023-05-17 22:23 | RAD ---
EXAM:CHEST, 1 VIEWHISTORY:Pneumonia.COMPARISON:CTA chest and one view of the chest from 05/15/2023.FINDINGS:SUPPORT DEVICES: None.HEART/MEDIASTINUM: Stable.LUNGS: Increased bilateral pulmonary opacities. No significant pleural effusion. No pneumothorax.ADDITIONAL FINDINGS: None.IMPRESSION:Interval worsening of bilateral pneumonia.THIS IS AN ELECTRONICALLY VERIFIED FINAL REPORT05/17/2023 10:10 PM - Electronically signed by Kun Peng MD
[2023-05-17] MEDS ORDERED: TESSALON PERLES PO PRN (23:31)
[2023-05-18] MEDS: XOPENEX 1.25 MG/3 ML NEBULE NEB SCH (05:40)
[2023-05-18 06:16] LABS: BASOPHILS # (AUTO) 0.1 X10^3/uL (0.0-0.1); BASOPHILS % (AUTO) 0.8 % (0.2-1.0); EOSINOPHILS % (AUTO) 10.2 % (0.9-2.9); HEMATOCRIT 31.1 % (36.0-47.0); HEMOGLOBIN 10.1 g/dL (12.0-16.0); LYMPHOCYTES # (AUTO) 2.4 X10^3/uL (1.3-2.9); LYMPHOCYTES % (AUTO) 24.8 % (21.0-51.0); MEAN CORPUSCULAR HEMOGLOBIN 27.8 pg (27.0-34.0); MEAN CORPUSCULAR HGB CONC 32.6 g/dL (33.0-35.0); MEAN CORPUSCULAR VOLUME 85.1 fL (80.0-100.0); MEAN PLATELET VOLUME 7.2 fL (7.4-11.0); MONOCYTES # (AUTO) 0.4 x10^3/uL (0.3-0.8); MONOCYTES % (AUTO) 4.5 % (0.0-13.0); NEUTROPHILS # (AUTO) 5.7 x10^3/uL (2.2-4.8); NEUTROPHILS % (AUTO) 59.7 % (42.0-75.0); PLATELET COUNT 337 X10^3/uL (150.0-450.0); RED BLOOD COUNT 3.65 X10^6/uL (3.5-5.4); RED CELL DISTRIBUTION WIDTH 14.8 % (11.6-16.5); WHITE BLOOD COUNT 9.6 X10^3/uL (3.6-10.0)
[2023-05-18 06:29] LABS: ALANINE AMINOTRANSFERASE 20 Units/L (12-78); ALBUMIN 2.6 g/dL (3.4-5.0); ALKALINE PHOSPHATASE 83 Units/L (46-116); ASPARTATE AMINO TRANSFERASE 26 Units/L (15-37); BLOOD UREA NITROGEN 1 mg/dL (7-18); CALCIUM 8.5 mg/dL (8.5-10.1); CHLORIDE 102 mmol/L (98-107); COR CA(FOR HYPOALB) 9.6 mg/dL (8.5-10.1); COR NA(FOR HYPERGLY) 141 mmol/L (136-145); CREATININE 0.65 mg/dL (0.55-1.02); GLUCOSE 177 mg/dL (65-99); POTASSIUM 4.6 mmol/L (3.5-5.1); SODIUM 139 mmol/L (136-145); TOTAL PROTEIN 6.4 g/dL (6.4-8.2); eGFR NON BLACK RACES > 60 (>60)
[2023-05-18] MEDS: LEVAQUIN PREMIX IV 750 MG 750 MG/150 ML BAG IV SCH (09:10)
--- NOTE | 2023-05-18 10:16 | PCM.PROG ---
Progress Note Progress Note for Day of Date of Exam: 05/18/23 Subjective Subjective: Patient seen at bedside, no acute events overnight. She is currently admitted for SOB and abdominal pain. She had caterina fundoplication few weeks ago. She states she is feeling better today. She had some nausea, no vomiting. She is currently on 2L NC. CXR showed bilateral pneumonia. CTAP was concerning for abdominal abscess. Dr Tian is following. She is currently on IV antibiotics. Labs/imaging reviewed - WBC 9.6 Hgb 10.1 - CXR: b/l pneumonia - Resp panel pending - Blood Cx negative Plan: follow surgery recommendations. Continue IV Rocephin and Levaquin. Continue bronchodilators and IS. Continue hydration with fluids, change to NS. Change diet to ADA. Continue anti-emetics and pain control. Monitor AM labs/imaging. Past Medical Family Social History Past Med/Fam/Surg Hx: No changes since H&P Allergies: Allergies aspirin Allergy (Unknown, Verified 04/23/23 10:49) Reason: Drug allergy hydromorphone Allergy (Unknown, Verified 04/23/23 10:49) Reason: Drug allergy mesalamine [Asacol] Allergy (Unknown, Verified 04/23/23 10:49) Reason: Drug allergy metoclopramide Allergy (Unknown, Verified 04/23/23 10:49) Reason: Drug allergy ondansetron [From Zofran (as hydrochloride)] Allergy (Unknown, Verified 04/23/23 10:49) Reason: Drug allergy Penicillins Allergy (Unknown, Verified 04/23/23 10:49) Reason: Drug allergy prochlorperazine Allergy (Unknown, Verified 04/23/23 10:49) Reason: Drug allergy acetaminophen [From Percocet] Allergy (Verified 05/07/23 11:32) amoxicillin Allergy (Verified 04/23/23 10:49) citric acid Allergy (Verified 04/23/23 10:49) haloperidol [From Haldol] Allergy (Verified 04/23/23 10:49) omeprazole Allergy (Verified 04/23/23 10:49) oxycodone [From Percocet] Allergy (Verified 05/07/23 11:32) Review of Systems ROS: No change since H&P Vital Signs and I&O's Vital Signs: Vital Signs Temperature 98.3 F Temperature 98.7 F Pulse Rate [Bilateral Radial] 116 Pulse Rate [Bilateral Radial] 121 Pulse Rate 117 Pulse Rate 117 Respiratory Rate 18 Respiratory Rate 20 Respiratory Rate 18 Respiratory Rate 20 Respiratory Rate 22 Blood Pressure [Right Arm] 111/74 Blood Pressure [Right Arm] 134/77 O2 Sat by Pulse Oximetry 98 O2 Sat by Pulse Oximetry 97 O2 Sat by Pulse Oximetry 98 O2 Sat by Pulse Oximetry 95 Intake and Output: Intake & Output 05/15/23 05/16/23 05/17/23 05/18/23 22:59 22:59 23:59 23:59 Intake Total 757 / 757 Output Total Balance 757 / 757 Physical Exam Eyes: Normal Nose: Normal Throat: Normal Respiratory: Normal Cardiovascular: Normal; negative Edema Auscultation: Bowel Sounds: Normal Tenderness: Diffuse, LUQ, Suprapubic (mild, no rebound) and Other (Soft flat abdomen with mild diffuse tenderness, bowel sounds present, no wound infection.) Skin: Normal Musculoskeletal: Normal Psychiatric: Normal Mood Description: Calm Affect: Normal Speech Pattern: Clear and Appropriate Laboratory and Diagnostics 05/18/23 05:51 05/18/23 05:51 Labs: 05/15/23 06:55 Blood Blood Culture - Preliminary 05/15/23 06:48 Blood Blood Culture - Preliminary Laboratory WBC 9.6 X10^3/uL (3.6-10.0) 05/18/23 05:51 RBC 3.65 X10^6/uL (3.5-5.4) 05/18/23 05:51 Hgb 10.1 g/dL (12.0-16.0) L 05/18/23 05:51 Hct 31.1 % (36.0-47.0) L 05/18/23 05:51 MCV 85.1 fL (80.0-100.0) 05/18/23 05:51 MCH 27.8 pg (27.0-34.0) 05/18/23 05:51 MCHC 32.6 g/dL (33.0-35.0) L 05/18/23 05:51 RDW 14.8 % (11.6-16.5) 05/18/23 05:51 Plt Count 337 X10^3/uL (150.0-450.0) 05/18/23 05:51 MPV 7.2 fL (7.4-11.0) L 05/18/23 05:51 Neut % (Auto) 59.7 % (42.0-75.0) 05/18/23 05:51 Lymph % (Auto) 24.8 % (21.0-51.0) 05/18/23 05:51 [place] % (Auto) 4.5 % (0.0-13.0) 05/18/23 05:51 Eos % (Auto) 10.2 % (0.9-2.9) H 05/18/23 05:51 Baso % (Auto) 0.8 % (0.2-1.0) 05/18/23 05:51 Neut # (Auto) 5.7 x10^3/uL (2.2-4.8) H 05/18/23 05:51 Lymph # (Auto) 2.4 X10^3/uL (1.3-2.9) 05/18/23 05:51 [place] # (Auto) 0.4 x10^3/uL (0.3-0.8) 05/18/23 05:51 Eos # (Auto) 1.0 x10^3/uL (0.0-0.2) H 05/18/23 05:51 Baso # (Auto) 0.1 X10^3/uL (0.0-0.1) 05/18/23 05:51 Absolute Nucleated RBC 0.1 /100WBC 05/18/23 05:51 D-Dimer 3.86 ug/ml (0.0-0.57) H 05/15/23 03:33 Sodium 139 mmol/L (136-145) 05/18/23 05:51 Corrected Sodium 141 mmol/L (136-145) 05/18/23 05:51 Potassium 4.6 mmol/L (3.5-5.1) 05/18/23 05:51 Chloride 102 mmol/L (98-107) 05/18/23 05:51 Carbon Dioxide 27.0 mmol/L (21-32) 05/18/23 05:51 BUN 1 mg/dL (7-18) L 05/18/23 05:51 Creatinine 0.65 mg/dL (0.55-1.02) 05/18/23 05:51 Est GFR (MDRD) Af Amer > 60 (>60) 05/18/23 05:51 Est GFR (MDRD) Non-Af > 60 (>60) 05/18/23 05:51 Glucose 177 mg/dL (65-99) H 05/18/23 05:51 POC Glucose (mg/dL) 163 mg/dL (65-99) H 05/18/23 05:08 Lactic Acid 0.8 mmol/L (0.4-2.0) 05/15/23 06:55 Calcium 8.5 mg/dL (8.5-10.1) 05/18/23 05:51 Corrected Calcium 9.6 mg/dL (8.5-10.1) 05/18/23 05:51 Magnesium 1.6 mg/dL (2.0-2.9) L 05/17/23 05:27 Total Bilirubin 0.20 mg/dL (0.2-1.0) 05/18/23 05:51 AST 26 Units/L (15-37) 05/18/23 05:51 ALT 20 Units/L (12-78) 05/18/23 05:51 Alkaline Phosphatase 83 Units/L (46-116) 05/18/23 05:51 C-Reactive Protein 27.10 mg/L (0-3.0) H 05/15/23 06:55 B-Natriuretic Peptide 151 pg/mL (0-79) H 05/15/23 03:33 Total Protein 6.4 g/dL (6.4-8.2) 05/18/23 05:51 Albumin 2.6 g/dL (3.4-5.0) L 05/18/23 05:51 Globulin 3.8 g/dL (2.5-4.5) 05/18/23 05:51 Albumin/Globulin Ratio 0.7 Ratio (1.1-2.1) L 05/18/23 05:51 Plan (1) Pneumonia: Status: Acute Qualifiers: Pneumonia type: due to unspecified organism Laterality: bilateral Lung location: unspecified part of lung Qualified Code(s): J18.9 - Pneumonia, unspecified organism (2) Abdominal abscess: Status: Acute (3) Multiple pulmonary nodules: Status: Acute (4) Status post Caterina fundoplication: Status: Acute (5) Hypomagnesemia: Status: Acute (6) VICKI (obstructive sleep apnea): Status: Acute
[2023-05-18] MEDS: NS 1,000 ML IV 1,000 ML IV SCH (10:37)
[2023-05-18] MEDS: VANCOMYCIN IV *PREMIX 1 G/200 ML BAG 1 G/200 ML PIGGYBACK IV SCH (12:22)
[2023-05-18] MEDS ORDERED: CONSULT PHARMACY - POTASSIUM & MAGNESIUM XX SCH (15:00)
[2023-05-18] MEDS: MAG-OX TAB PO SCH (15:05)
--- NOTE | 2023-05-18 15:18 | DR.PROGNOT ---
HOSPITAL PROGRESS NOTE Progress Note for Day of: Progress Note Date: 05/18/23 Chief Complaint Chief Complaint: abdominal pain is less . c/o shortness of breath while MBULATING WITH HYPOXIA and moderate cough .. had normal BM .. BS 230..WBC 9.6..O2 94.. Mg 1.6. chest Xray with bilateral infiltrates . History of Present Illness History of Present Illness: PT doing ok Sleepy this am, became agitated last pm, was given po vistaril. Breathing ok. No chest pain this am. Abdomen doing better. Past Medical Family Social History Past Med/Fam/Surg Hx: No changes since H&P Allergies: Allergies aspirin Allergy (Unknown, Verified 04/23/23 10:49) Reason: Drug allergy hydromorphone Allergy (Unknown, Verified 04/23/23 10:49) Reason: Drug allergy mesalamine [Asacol] Allergy (Unknown, Verified 04/23/23 10:49) Reason: Drug allergy metoclopramide Allergy (Unknown, Verified 04/23/23 10:49) Reason: Drug allergy ondansetron [From Zofran (as hydrochloride)] Allergy (Unknown, Verified 04/23/23 10:49) Reason: Drug allergy Penicillins Allergy (Unknown, Verified 04/23/23 10:49) Reason: Drug allergy prochlorperazine Allergy (Unknown, Verified 04/23/23 10:49) Reason: Drug allergy acetaminophen [From Percocet] Allergy (Verified 05/07/23 11:32) amoxicillin Allergy (Verified 04/23/23 10:49) citric acid Allergy (Verified 04/23/23 10:49) haloperidol [From Haldol] Allergy (Verified 04/23/23 10:49) omeprazole Allergy (Verified 04/23/23 10:49) oxycodone [From Percocet] Allergy (Verified 05/07/23 11:32) Review Of Systems ROS: No change since H&P Vital Signs Vital Signs: Vital Signs Temperature 98 F Temperature 98.3 F Pulse Rate [Bilateral Radial] 118 Pulse Rate [Bilateral Radial] 116 Pulse Rate 117 Respiratory Rate 18 Respiratory Rate 18 Respiratory Rate 20 Respiratory Rate 18 Respiratory Rate 18 Respiratory Rate 20 Blood Pressure [Right Arm] 131/90 Blood Pressure [Right Arm] 111/74 O2 Sat by Pulse Oximetry 95 O2 Sat by Pulse Oximetry 98 O2 Sat by Pulse Oximetry 97 Physical Exam Eyes: Normal Nose: Normal Throat: Normal Respiratory: Normal Cardiovascular: Normal; negative Edema GI:Auscultation: Normal GI: Tenderness: Diffuse, LUQ, Suprapubic (mild, no rebound) and Other (Soft flat abdomen with mild diffuse tenderness, bowel sounds present, no wound infection.) Skin: Normal Musculoskeletal: Normal Psychiatric: Normal Mood Description: Calm Affect: Normal Speech Pattern: Clear and Appropriate Laboratory and Diagnostics 05/18/23 05:51 05/18/23 05:51 Labs: 05/15/23 06:55 Blood Blood Culture - Preliminary 05/15/23 06:48 Blood Blood Culture - Preliminary Laboratory WBC 9.6 X10^3/uL (3.6-10.0) 05/18/23 05:51 RBC 3.65 X10^6/uL (3.5-5.4) 05/18/23 05:51 Hgb 10.1 g/dL (12.0-16.0) L 05/18/23 05:51 Hct 31.1 % (36.0-47.0) L 05/18/23 05:51 MCV 85.1 fL (80.0-100.0) 05/18/23 05:51 MCH 27.8 pg (27.0-34.0) 05/18/23 05:51 MCHC 32.6 g/dL (33.0-35.0) L 05/18/23 05:51 RDW 14.8 % (11.6-16.5) 05/18/23 05:51 Plt Count 337 X10^3/uL (150.0-450.0) 05/18/23 05:51 MPV 7.2 fL (7.4-11.0) L 05/18/23 05:51 Neut % (Auto) 59.7 % (42.0-75.0) 05/18/23 05:51 Lymph % (Auto) 24.8 % (21.0-51.0) 05/18/23 05:51 [place] % (Auto) 4.5 % (0.0-13.0) 05/18/23 05:51 Eos % (Auto) 10.2 % (0.9-2.9) H 05/18/23 05:51 Baso % (Auto) 0.8 % (0.2-1.0) 05/18/23 05:51 Neut # (Auto) 5.7 x10^3/uL (2.2-4.8) H 05/18/23 05:51 Lymph # (Auto) 2.4 X10^3/uL (1.3-2.9) 05/18/23 05:51 [place] # (Auto) 0.4 x10^3/uL (0.3-0.8) 05/18/23 05:51 Eos # (Auto) 1.0 x10^3/uL (0.0-0.2) H 05/18/23 05:51 Baso # (Auto) 0.1 X10^3/uL (0.0-0.1) 05/18/23 05:51 Absolute Nucleated RBC 0.1 /100WBC 05/18/23 05:51 D-Dimer 3.86 ug/ml (0.0-0.57) H 05/15/23 03:33 Sodium 139 mmol/L (136-145) 05/18/23 05:51 Corrected Sodium 141 mmol/L (136-145) 05/18/23 05:51 Potassium 4.6 mmol/L (3.5-5.1) 05/18/23 05:51 Chloride 102 mmol/L (98-107) 05/18/23 05:51 Carbon Dioxide 27.0 mmol/L (21-32) 05/18/23 05:51 BUN 1 mg/dL (7-18) L 05/18/23 05:51 Creatinine 0.65 mg/dL (0.55-1.02) 05/18/23 05:51 Est GFR (MDRD) Af Amer > 60 (>60) 05/18/23 05:51 Est GFR (MDRD) Non-Af > 60 (>60) 05/18/23 05:51 Glucose 177 mg/dL (65-99) H 05/18/23 05:51 POC Glucose (mg/dL) 156 mg/dL (65-99) H 05/18/23 11:36 Lactic Acid 0.8 mmol/L (0.4-2.0) 05/15/23 06:55 Calcium 8.5 mg/dL (8.5-10.1) 05/18/23 05:51 Corrected Calcium 9.6 mg/dL (8.5-10.1) 05/18/23 05:51 Magnesium 1.6 mg/dL (2.0-2.9) L 05/17/23 05:27 Total Bilirubin 0.20 mg/dL (0.2-1.0) 05/18/23 05:51 AST 26 Units/L (15-37) 05/18/23 05:51 ALT 20 Units/L (12-78) 05/18/23 05:51 Alkaline Phosphatase 83 Units/L (46-116) 05/18/23 05:51 C-Reactive Protein 27.10 mg/L (0-3.0) H 05/15/23 06:55 B-Natriuretic Peptide 151 pg/mL (0-79) H 05/15/23 03:33 Total Protein 6.4 g/dL (6.4-8.2) 05/18/23 05:51 Albumin 2.6 g/dL (3.4-5.0) L 05/18/23 05:51 Globulin 3.8 g/dL (2.5-4.5) 05/18/23 05:51 Albumin/Globulin Ratio 0.7 Ratio (1.1-2.1) L 05/18/23 05:51 Resp Viral Panel (PCR) See scanned report 05/15/23 11:22 SARS CoV-2 RNA Rapid RODOLFO Negative (NEGATIVE) 05/18/23 12:03 Assessment and Plan 1: Bilateral pneumonia - continue O2, IV antibiotics. DuoNeb and pulmonary care. on Vancomycin now .. 2: Incisional pain, to Continue IV antibiotics. Tolerating po diet. On Lovenox for DVT prophylaxis. 3: Diabetes mellitus - continue daily insulin, prn insulin coverage. Medical consultation was ordered.. 4: Recent thrush - will add nystatin po QID. 5: Anxiety - will increase lorazepam to TID. Problem Patient Problems: Patient Problems Pneumonia (Acute) J18.9 Abdominal abscess (Acute) Bilateral pleural effusion (Acute) J90 Multiple pulmonary nodules (Acute) R91.8
[2023-05-19 06:04] LABS: BASOPHILS # (AUTO) 0.1 X10^3/uL (0.0-0.1); BASOPHILS % (AUTO) 0.7 % (0.2-1.0); EOSINOPHILS # (AUTO) 1.3 x10^3/uL (0.0-0.2); EOSINOPHILS % (AUTO) 14.9 % (0.9-2.9); HEMATOCRIT 33.1 % (36.0-47.0); HEMOGLOBIN 10.6 g/dL (12.0-16.0); LYMPHOCYTES # (AUTO) 1.4 X10^3/uL (1.3-2.9); LYMPHOCYTES % (AUTO) 16.3 % (21.0-51.0); MEAN CORPUSCULAR HEMOGLOBIN 27.3 pg (27.0-34.0); MEAN CORPUSCULAR HGB CONC 32.1 g/dL (33.0-35.0); MEAN CORPUSCULAR VOLUME 85.3 fL (80.0-100.0); MEAN PLATELET VOLUME 7.5 fL (7.4-11.0); MONOCYTES # (AUTO) 0.4 x10^3/uL (0.3-0.8); NEUTROPHILS # (AUTO) 5.6 x10^3/uL (2.2-4.8); NEUTROPHILS % (AUTO) 63.1 % (42.0-75.0); PLATELET COUNT 460 X10^3/uL (150.0-450.0); RED BLOOD COUNT 3.88 X10^6/uL (3.5-5.4); RED CELL DISTRIBUTION WIDTH 14.9 % (11.6-16.5); WHITE BLOOD COUNT 8.8 X10^3/uL (3.6-10.0)
[2023-05-19 06:17] LABS: ALANINE AMINOTRANSFERASE 18 Units/L (12-78); ALBUMIN 2.8 g/dL (3.4-5.0); ALKALINE PHOSPHATASE 85 Units/L (46-116); ASPARTATE AMINO TRANSFERASE 23 Units/L (15-37); BLOOD UREA NITROGEN 2 mg/dL (7-18); CARBON DIOXIDE 29.9 mmol/L (21-32); CHLORIDE 101 mmol/L (98-107); COR NA(FOR HYPERGLY) 142 mmol/L (136-145); CREATININE 0.65 mg/dL (0.55-1.02); GLUCOSE 135 mg/dL (65-99); MAGNESIUM 1.8 mg/dL (2.0-2.9); POTASSIUM 4.5 mmol/L (3.5-5.1); SODIUM 141 mmol/L (136-145); TOTAL PROTEIN 6.7 g/dL (6.4-8.2); eGFR NON BLACK RACES > 60 (>60)
[2023-05-19] MEDS ORDERED: CONSULT PHARMACY - POTASSIUM & MAGNESIUM XX SCH (07:00)
[2023-05-19] MEDS: MAG-OX TAB PO SCH (08:46)
--- NOTE | 2023-05-19 09:47 | PCM.PROG ---
Progress Note Progress Note for Day of Date of Exam: 05/19/23 Subjective Subjective: Patient seen at bedside, no acute events overnight. She continues to have dyspnea, requiring 2L NC. She did ambulate with RT, sats dropped to 74% on room air. She denies any cough. Her nausea has been well-controlled. She states she is eating better today. Denies chest pain or palpitations. She does have a hx of anxiety. HR has been elevated in the 115-120s. Labs/imaging reviewed - WBC 8.8 Hgb 10.6 - Resp panel negative - Blood Cx negative - Sputum Cx: pending Plan: Will order CXR and EKG. Add telemetry. Patient had CT-PE on admission which was negative for PE but did show multiple pulmonary nodules. Patient states she has had those in the past and was suppose to have a f/u CT in 6 months. Follow surgery recommendations. Patient is currently on IV Vancomycin. Continue bronchodilators and IS. Continue hydration with fluids. Continue anti- emetics and pain control. Patient also has a hx of anxiety, continue ativan prn and Vistaril. Wean O2 as tolerated. Monitor AM labs/imaging. Time spent for clinical assessment, reviewing labs/imaging, physical exam, decision making and documentation greater than 45 mins. Past Medical Family Social History Past Med/Fam/Surg Hx: No changes since H&P Allergies: Allergies aspirin Allergy (Unknown, Verified 04/23/23 10:49) Reason: Drug allergy hydromorphone Allergy (Unknown, Verified 04/23/23 10:49) Reason: Drug allergy mesalamine [Asacol] Allergy (Unknown, Verified 04/23/23 10:49) Reason: Drug allergy metoclopramide Allergy (Unknown, Verified 04/23/23 10:49) Reason: Drug allergy ondansetron [From Zofran (as hydrochloride)] Allergy (Unknown, Verified 04/23/23 10:49) Reason: Drug allergy Penicillins Allergy (Unknown, Verified 04/23/23 10:49) Reason: Drug allergy prochlorperazine Allergy (Unknown, Verified 04/23/23 10:49) Reason: Drug allergy acetaminophen [From Percocet] Allergy (Verified 05/07/23 11:32) amoxicillin Allergy (Verified 04/23/23 10:49) citric acid Allergy (Verified 04/23/23 10:49) haloperidol [From Haldol] Allergy (Verified 04/23/23 10:49) omeprazole Allergy (Verified 04/23/23 10:49) oxycodone [From Percocet] Allergy (Verified 05/07/23 11:32) Review of Systems ROS: No change since H&P Vital Signs and I&O's Vital Signs: Vital Signs Temperature 97.8 F Temperature 98 F Pulse Rate [Bilateral Radial] 112 Pulse Rate [Bilateral Radial] 128 Pulse Rate 116 Respiratory Rate 20 Respiratory Rate 20 Respiratory Rate 18 Respiratory Rate 19 Blood Pressure [Right Arm] 136/67 Blood Pressure [Right Arm] 135/79 O2 Sat by Pulse Oximetry 97 O2 Sat by Pulse Oximetry 95 O2 Sat by Pulse Oximetry 94 Intake and Output: Intake & Output 05/16/23 05/17/23 05/18/23 05/19/23 22:59 23:59 23:59 23:59 Intake Total 3668 / 3668 882 / 882 Balance 3668 / 3668 882 / 882 Physical Exam Eyes: Normal Nose: Normal Throat: Normal Respiratory: Generalized and Diminished Cardiovascular: Tachycardia and Edema Auscultation: Bowel Sounds: Normal Tenderness: Epigastric and Mild Skin: Normal Musculoskeletal: Normal Psychiatric: Normal Mood Description: Calm Affect: Normal Speech Pattern: Clear and Appropriate Laboratory and Diagnostics 05/19/23 05:25 05/19/23 05:25 Labs: 05/19/23 02:13 Sputum - Expectorated Sputum - Final 05/15/23 06:55 Blood Blood Culture - Preliminary 05/15/23 06:48 Blood Blood Culture - Preliminary Laboratory WBC 8.8 X10^3/uL (3.6-10.0) 05/19/23 05:25 RBC 3.88 X10^6/uL (3.5-5.4) 05/19/23 05:25 Hgb 10.6 g/dL (12.0-16.0) L 05/19/23 05:25 Hct 33.1 % (36.0-47.0) L 05/19/23 05:25 MCV 85.3 fL (80.0-100.0) 05/19/23 05:25 MCH 27.3 pg (27.0-34.0) 05/19/23 05:25 MCHC 32.1 g/dL (33.0-35.0) L 05/19/23 05:25 RDW 14.9 % (11.6-16.5) 05/19/23 05:25 Plt Count 460 X10^3/uL (150.0-450.0) H 05/19/23 05:25 MPV 7.5 fL (7.4-11.0) 05/19/23 05:25 Neut % (Auto) 63.1 % (42.0-75.0) 05/19/23 05:25 Lymph % (Auto) 16.3 % (21.0-51.0) L 05/19/23 05:25 [place] % (Auto) 5.0 % (0.0-13.0) 05/19/23 05:25 Eos % (Auto) 14.9 % (0.9-2.9) H 05/19/23 05:25 Baso % (Auto) 0.7 % (0.2-1.0) 05/19/23 05:25 Neut # (Auto) 5.6 x10^3/uL (2.2-4.8) H 05/19/23 05:25 Lymph # (Auto) 1.4 X10^3/uL (1.3-2.9) 05/19/23 05:25 [place] # (Auto) 0.4 x10^3/uL (0.3-0.8) 05/19/23 05:25 Eos # (Auto) 1.3 x10^3/uL (0.0-0.2) H 05/19/23 05:25 Baso # (Auto) 0.1 X10^3/uL (0.0-0.1) 05/19/23 05:25 Absolute Nucleated RBC 0.1 /100WBC 05/19/23 05:25 D-Dimer 3.86 ug/ml (0.0-0.57) H 05/15/23 03:33 Sodium 141 mmol/L (136-145) 05/19/23 05:25 Corrected Sodium 142 mmol/L (136-145) 05/19/23 05:25 Potassium 4.5 mmol/L (3.5-5.1) 05/19/23 05:25 Chloride 101 mmol/L (98-107) 05/19/23 05:25 Carbon Dioxide 29.9 mmol/L (21-32) 05/19/23 05:25 BUN 2 mg/dL (7-18) L 05/19/23 05:25 Creatinine 0.65 mg/dL (0.55-1.02) 05/19/23 05:25 Est GFR (MDRD) Af Amer > 60 (>60) 05/19/23 05:25 Est GFR (MDRD) Non-Af > 60 (>60) 05/19/23 05:25 Glucose 135 mg/dL (65-99) H 05/19/23 05:25 POC Glucose (mg/dL) 155 mg/dL (65-99) H 05/19/23 05:16 Lactic Acid 0.8 mmol/L (0.4-2.0) 05/15/23 06:55 Calcium 9.0 mg/dL (8.5-10.1) 05/19/23 05:25 Corrected Calcium 10.0 mg/dL (8.5-10.1) 05/19/23 05:25 Magnesium 1.8 mg/dL (2.0-2.9) L 05/19/23 05:25 Total Bilirubin 0.30 mg/dL (0.2-1.0) 05/19/23 05:25 AST 23 Units/L (15-37) 05/19/23 05:25 ALT 18 Units/L (12-78) 05/19/23 05:25 Alkaline Phosphatase 85 Units/L (46-116) 05/19/23 05:25 C-Reactive Protein 27.10 mg/L (0-3.0) H 05/15/23 06:55 B-Natriuretic Peptide 151 pg/mL (0-79) H 05/15/23 03:33 Total Protein 6.7 g/dL (6.4-8.2) 05/19/23 05:25 Albumin 2.8 g/dL (3.4-5.0) L 05/19/23 05:25 Globulin 3.9 g/dL (2.5-4.5) 05/19/23 05:25 Albumin/Globulin Ratio 0.7 Ratio (1.1-2.1) L 05/19/23 05:25 Resp Viral Panel (PCR) See scanned report 05/15/23 11:22 SARS CoV-2 RNA Rapid RODOLFO Negative (NEGATIVE) 05/18/23 12:03 Plan (1) Pneumonia: Status: Acute Qualifiers: Laterality: bilateral Lung location: unspecified part of lung Pneumonia type: due to unspecified organism Qualified Code(s): J18.9 - Pneumonia, unspecified organism (2) Tachycardia: Status: Acute (3) Abdominal abscess: Status: Acute (4) Multiple pulmonary nodules: Status: Acute (5) Status post Christie fundoplication: Status: Acute (6) Hypomagnesemia: Status: Acute (7) VICKI (obstructive sleep apnea): Status: Acute
--- NOTE | 2023-05-19 10:24 | EKG ---
Test Reason : tachycardia Blood Pressure : */* mmHG Vent. Rate : 112 BPM Atrial Rate : 112 BPM P-R Int : 116 ms QRS Dur : 84 ms QT Int : 354 ms P-R-T Axes : 28 54 11 degrees QTc Int : 483 ms Sinus tachycardia Otherwise normal ECG When compared with ECG of 01-MAY-2023 08:40, No significant change was found Confirmed by Collin Stewart MD ([id number]) on 05/19/2023 2:08:44 PM Referred By: Confirmed By: Collin Stewart MD
--- NOTE | 2023-05-19 10:50 | RAD ---
EXAM: CHEST, 1 VIEW HISTORY: SOB, PNEUMONIA; HYST, B/L OOPH PAT, GERD COMPARISON: Prior study or studies were utilized for comparison during interpretation with the most relevant jose ed 05/17/2023 TECHNIQUE: CHEST, 1 VIEW FINDINGS: Chest: Lines and tubes: None Mediastinum: Borderline cardiomegaly. Pulmonary vessels: There is pulmonary vascular congestion. Lung bills: Patchy opacities are seen Pleura: No effusion. No pneumothorax. Bones and soft tissues: No acute osseous or soft tissue abnormality. IMPRESSION: 1. No significant change to airspace opacities THIS IS AN ELECTRONICALLY VERIFIED FINAL REPORT 05/19/2023 10:46 AM - Electronically signed by Brenton Ashraf MD
[2023-05-19] MEDS: MILK OF MAGNESIA PO ONE (11:13)
[2023-05-19 20:55] LABS: CREATININE 0.64 mg/dL (0.55-1.02); VANCOMYCIN,TROUGH 10.7 ug/mL (15-20)
[2023-05-19] MEDS: PHARMACY COMMENT IV NR (21:29)
[2023-05-19] MEDS: VANCOMYCIN IV *PREMIX 1.5 G/300 ML BAG 1.5 G/300 ML PIGGYBACK IV SCH (21:38)
[2023-05-20 06:21] LABS: BASOPHILS # (AUTO) 0.1 X10^3/uL (0.0-0.1); BASOPHILS % (AUTO) 1.3 % (0.2-1.0); EOSINOPHILS # (AUTO) 1.3 x10^3/uL (0.0-0.2); EOSINOPHILS % (AUTO) 13.5 % (0.9-2.9); HEMATOCRIT 33.2 % (36.0-47.0); HEMOGLOBIN 10.7 g/dL (12.0-16.0); LYMPHOCYTES # (AUTO) 2.3 X10^3/uL (1.3-2.9); LYMPHOCYTES % (AUTO) 24.4 % (21.0-51.0); MEAN CORPUSCULAR HEMOGLOBIN 27.3 pg (27.0-34.0); MEAN CORPUSCULAR HGB CONC 32.1 g/dL (33.0-35.0); MEAN CORPUSCULAR VOLUME 84.8 fL (80.0-100.0); MEAN PLATELET VOLUME 7.2 fL (7.4-11.0); MONOCYTES # (AUTO) 0.4 x10^3/uL (0.3-0.8); MONOCYTES % (AUTO) 4.1 % (0.0-13.0); NEUTROPHILS # (AUTO) 5.3 x10^3/uL (2.2-4.8); NEUTROPHILS % (AUTO) 56.7 % (42.0-75.0); PLATELET COUNT 450 X10^3/uL (150.0-450.0); RED BLOOD COUNT 3.91 X10^6/uL (3.5-5.4); RED CELL DISTRIBUTION WIDTH 14.5 % (11.6-16.5); WHITE BLOOD COUNT 9.3 X10^3/uL (3.6-10.0)
[2023-05-20 06:38] LABS: ALANINE AMINOTRANSFERASE 19 Units/L (12-78); ALBUMIN 2.7 g/dL (3.4-5.0); ALKALINE PHOSPHATASE 93 Units/L (46-116); ASPARTATE AMINO TRANSFERASE 30 Units/L (15-37); BLOOD UREA NITROGEN 5 mg/dL (7-18); CALCIUM 9.3 mg/dL (8.5-10.1); CARBON DIOXIDE 31.6 mmol/L (21-32); CHLORIDE 100 mmol/L (98-107); COR CA(FOR HYPOALB) 10.3 mg/dL (8.5-10.1); COR NA(FOR HYPERGLY) 142 mmol/L (136-145); CREATININE 0.67 mg/dL (0.55-1.02); GLUCOSE 167 mg/dL (65-99); POTASSIUM 4.9 mmol/L (3.5-5.1); SODIUM 140 mmol/L (136-145); TOTAL PROTEIN 6.8 g/dL (6.4-8.2); eGFR NON BLACK RACES > 60 (>60)
[2023-05-20 09:48] LABS: TSH (3RD GENERATION) 7.57 uIU/mL (0.358-3.74)
[2023-05-20] MEDS: LASIX IVP ONE (09:54)
[2023-05-20] MEDS: COREG TAB 3.125 MG PO SCH (09:55)
--- NOTE | 2023-05-20 10:47 | DR.PROGNOT ---
HOSPITAL PROGRESS NOTE Progress Note for Day of: Progress Note Date: 05/20/23 Chief Complaint Chief Complaint: abdominal pain is less . c/o shortness of breath while MBULATING WITH HYPOXIA and moderate cough .. no chest pain , no palpitation . had normal BM .. BS 167.WBC 9.6..O2 94.. Mg 1.6..O2 sat 98 BP 118/66.. p 114 chest Xray with bilateral infiltrates . no pleural effusion History of Present Illness History of Present Illness: PT doing ok Sleepy this am, became agitated last pm, was given po vistaril. Breathing ok. No chest pain this am. Abdomen doing better. Past Medical Family Social History Past Med/Fam/Surg Hx: No changes since H&P Allergies: Allergies aspirin Allergy (Unknown, Verified 04/23/23 10:49) Reason: Drug allergy hydromorphone Allergy (Unknown, Verified 04/23/23 10:49) Reason: Drug allergy mesalamine [Asacol] Allergy (Unknown, Verified 04/23/23 10:49) Reason: Drug allergy metoclopramide Allergy (Unknown, Verified 04/23/23 10:49) Reason: Drug allergy ondansetron [From Zofran (as hydrochloride)] Allergy (Unknown, Verified 04/23/23 10:49) Reason: Drug allergy Penicillins Allergy (Unknown, Verified 04/23/23 10:49) Reason: Drug allergy prochlorperazine Allergy (Unknown, Verified 04/23/23 10:49) Reason: Drug allergy acetaminophen [From Percocet] Allergy (Verified 05/07/23 11:32) amoxicillin Allergy (Verified 04/23/23 10:49) citric acid Allergy (Verified 04/23/23 10:49) haloperidol [From Haldol] Allergy (Verified 04/23/23 10:49) omeprazole Allergy (Verified 04/23/23 10:49) oxycodone [From Percocet] Allergy (Verified 05/07/23 11:32) Review Of Systems ROS: No change since H&P Vital Signs Vital Signs: Vital Signs Temperature 98.5 F Temperature 98.9 F Pulse Rate [Bilateral Radial] 114 Pulse Rate [Bilateral Radial] 111 Pulse Rate 113 Respiratory Rate 18 Respiratory Rate 18 Respiratory Rate 18 Respiratory Rate 20 Respiratory Rate 18 Respiratory Rate 20 Respiratory Rate 20 Blood Pressure [Right Arm] 118/66 Blood Pressure [Right Arm] 128/79 O2 Sat by Pulse Oximetry 98 O2 Sat by Pulse Oximetry 95 O2 Sat by Pulse Oximetry 93 Physical Exam Eyes: Normal Nose: Normal Throat: Normal Respiratory: Normal Cardiovascular: Tachycardia GI:Auscultation: Normal GI:Palpation: Normal (soft abdomen , clean incision , BS+) GI: Tenderness: Epigastric and Mild Skin: Normal Musculoskeletal: Normal Psychiatric: Normal Mood Description: Calm Affect: Normal Speech Pattern: Clear and Appropriate Laboratory and Diagnostics 05/20/23 05:56 05/20/23 05:56 Labs: 05/19/23 02:13 Sputum - Expectorated Sputum - Final 05/15/23 06:55 Blood Blood Culture - Preliminary 05/15/23 06:48 Blood Blood Culture - Preliminary Laboratory WBC 9.3 X10^3/uL (3.6-10.0) 05/20/23 05:56 RBC 3.91 X10^6/uL (3.5-5.4) 05/20/23 05:56 Hgb 10.7 g/dL (12.0-16.0) L 05/20/23 05:56 Hct 33.2 % (36.0-47.0) L 05/20/23 05:56 MCV 84.8 fL (80.0-100.0) 05/20/23 05:56 MCH 27.3 pg (27.0-34.0) 05/20/23 05:56 MCHC 32.1 g/dL (33.0-35.0) L 05/20/23 05:56 RDW 14.5 % (11.6-16.5) 05/20/23 05:56 Plt Count 450 X10^3/uL (150.0-450.0) 05/20/23 05:56 MPV 7.2 fL (7.4-11.0) L 05/20/23 05:56 Neut % (Auto) 56.7 % (42.0-75.0) 05/20/23 05:56 Lymph % (Auto) 24.4 % (21.0-51.0) 05/20/23 05:56 [place] % (Auto) 4.1 % (0.0-13.0) 05/20/23 05:56 Eos % (Auto) 13.5 % (0.9-2.9) H 05/20/23 05:56 Baso % (Auto) 1.3 % (0.2-1.0) H 05/20/23 05:56 Neut # (Auto) 5.3 x10^3/uL (2.2-4.8) H 05/20/23 05:56 Lymph # (Auto) 2.3 X10^3/uL (1.3-2.9) 05/20/23 05:56 [place] # (Auto) 0.4 x10^3/uL (0.3-0.8) 05/20/23 05:56 Eos # (Auto) 1.3 x10^3/uL (0.0-0.2) H 05/20/23 05:56 Baso # (Auto) 0.1 X10^3/uL (0.0-0.1) 05/20/23 05:56 Absolute Nucleated RBC 0.0 /100WBC 05/20/23 05:56 D-Dimer 3.86 ug/ml (0.0-0.57) H 05/15/23 03:33 Sodium 140 mmol/L (136-145) 05/20/23 05:56 Corrected Sodium 142 mmol/L (136-145) 05/20/23 05:56 Potassium 4.9 mmol/L (3.5-5.1) 05/20/23 05:56 Chloride 100 mmol/L (98-107) 05/20/23 05:56 Carbon Dioxide 31.6 mmol/L (21-32) 05/20/23 05:56 BUN 5 mg/dL (7-18) L 05/20/23 05:56 Creatinine 0.67 mg/dL (0.55-1.02) 05/20/23 05:56 Est GFR (MDRD) Af Amer > 60 (>60) 05/20/23 05:56 Est GFR (MDRD) Non-Af > 60 (>60) 05/20/23 05:56 Glucose 167 mg/dL (65-99) H 05/20/23 05:56 POC Glucose (mg/dL) 189 mg/dL (65-99) H 05/20/23 05:17 Lactic Acid 0.8 mmol/L (0.4-2.0) 05/15/23 06:55 Calcium 9.3 mg/dL (8.5-10.1) 05/20/23 05:56 Corrected Calcium 10.3 mg/dL (8.5-10.1) H 05/20/23 05:56 Magnesium 1.8 mg/dL (2.0-2.9) L 05/20/23 05:56 Total Bilirubin 0.30 mg/dL (0.2-1.0) 05/20/23 05:56 AST 30 Units/L (15-37) 05/20/23 05:56 ALT 19 Units/L (12-78) 05/20/23 05:56 Alkaline Phosphatase 93 Units/L (46-116) 05/20/23 05:56 Troponin I High Sens 49.1 ng/L (4.0-60.0) 05/20/23 05:56 C-Reactive Protein 27.10 mg/L (0-3.0) H 05/15/23 06:55 B-Natriuretic Peptide 151 pg/mL (0-79) H 05/15/23 03:33 Total Protein 6.8 g/dL (6.4-8.2) 05/20/23 05:56 Albumin 2.7 g/dL (3.4-5.0) L 05/20/23 05:56 Globulin 4.1 g/dL (2.5-4.5) 05/20/23 05:56 Albumin/Globulin Ratio 0.7 Ratio (1.1-2.1) L 05/20/23 05:56 TSH 3rd Generation 7.570 uIU/mL (0.358-3.74) H 05/20/23 05:56 Vancomycin Trough 10.7 ug/mL (15-20) L 05/19/23 20:15 Resp Viral Panel (PCR) See scanned report 05/15/23 11:22 SARS CoV-2 RNA Rapid RODOLFO Negative (NEGATIVE) 05/18/23 12:03 Assessment and Plan 1: Bilateral pneumonia - continue O2, IV antibiotics. DuoNeb and pulmonary care. on Vancomycin now .. 2: tachycardia . to have cardiology eval 3: Diabetes mellitus - continue daily insulin, prn insulin coverage. Medical consultation was ordered.. 4: Recent thrush - will add nystatin po QID. 5: Anxiety - will increase lorazepam to TID. Problem Patient Problems: Patient Problems Pneumonia (Acute) J18.9 Abdominal abscess (Acute) Bilateral pleural effusion (Acute) J90 Multiple pulmonary nodules (Acute) R91.8
--- NOTE | 2023-05-20 13:16 | DR.CONSULT ---
CONSULT Consultation for Day of: Date: 05/20/23 Chief Complaint Chief Complaint: sob Allergies Allergies Allergy/AdvReac Type Severity Reaction Status Date / Time aspirin Allergy Unknown Verified 04/23/23 10:49 hydromorphone Allergy Unknown Verified 04/23/23 10:49 mesalamine [Asacol] Allergy Unknown Verified 04/23/23 10:49 metoclopramide Allergy Unknown Verified 04/23/23 10:49 ondansetron Allergy Unknown Verified 04/23/23 10:49 [From Zofran (as hydrochloride)] Penicillins Allergy Unknown Verified 04/23/23 10:49 prochlorperazine Allergy Unknown Verified 04/23/23 10:49 acetaminophen [From Percocet] Allergy Verified 05/07/23 11:32 amoxicillin Allergy Verified 04/23/23 10:49 citric acid Allergy Verified 04/23/23 10:49 haloperidol [From Haldol] Allergy Verified 04/23/23 10:49 omeprazole Allergy Verified 04/23/23 10:49 oxycodone [From Percocet] Allergy Verified 05/07/23 11:32 History of Present Illness History of Present Illness: 43 yo female- states mi when 31 but no cath/no skilled nursing meds??- had plication of HH for gerd few weeks ago- in hosp after surgery: cp/sob- came back to er for sob mostly though some pin around surg site- bnp mildly elevated, cxr: B pna/edema- sob/st continued , ech done shows decreased ef- bad windows but mostly apical WMA that spares base- ? takosubo though must know coronary status to make that dx and must get better with treatment usually quickly-trop today normal no nothing acute, ekg: ST- w lasix today: good urine output and some improvemnt of sob but no walking today Past Medical History Past Medical History: Anxiety, Asthma, Depression, Diabetes, GERD, Liver Disease, Seizures and Sleep Apnea Past Surgical History Surgical History: , Cholecystectomy and Hysterectomy Family History Family Medical History: Hypertension Social History Does patient currently use any type of tobacco product: No Have you used tobacco products in the last 12 months: No Type of Tobacco Use: None Alcohol Use: None Drug Use: None Medications Home Medications: aspirin Allergy (Unknown, Verified 04/23/23 10:49) hydromorphone Allergy (Unknown, Verified 04/23/23 10:49) mesalamine [Asacol] Allergy (Unknown, Verified 04/23/23 10:49) metoclopramide Allergy (Unknown, Verified 04/23/23 10:49) ondansetron [From Zofran (as hydrochloride)] Allergy (Unknown, Verified 04/23/23 10:49) Penicillins Allergy (Unknown, Verified 04/23/23 10:49) prochlorperazine Allergy (Unknown, Verified 04/23/23 10:49) acetaminophen [From Percocet] Allergy (Verified 05/07/23 11:32) amoxicillin Allergy (Verified 04/23/23 10:49) citric acid Allergy (Verified 04/23/23 10:49) haloperidol [From Haldol] Allergy (Verified 04/23/23 10:49) omeprazole Allergy (Verified 04/23/23 10:49) oxycodone [From Percocet] Allergy (Verified 05/07/23 11:32) CONTINUE taking the following medications insulin glargine 100 unit/mL subcutaneous solution (Lantus U-100 Insulin) 30 unit subcut HS 05/15/23 [History] Physical Exam Vital Signs: Vital Signs Temperature 98.5 F Pulse Rate [Bilateral Radial] 114 Pulse Rate 113 Respiratory Rate 18 Respiratory Rate 18 Respiratory Rate 18 Respiratory Rate 20 Blood Pressure [Right Arm] 118/66 O2 Sat by Pulse Oximetry 98 O2 Sat by Pulse Oximetry 95 alert ox3 elevated jvd few crackles tachy/regular minimal edema labs : hct 33 cr 0.7 k 4.9 trop negative, tsh 7.57 but t4 8.3 normal Plan (1) Abdominal abscess: Status: Acute (2) Status post Christie fundoplication: Status: Acute (3) Hypomagnesemia: Status: Acute (4) VICKI (obstructive sleep apnea): Status: Acute (5) Cardiomyopathy: Status: Acute Narrative Support Text: ? cad/stress induced Plan: diuresis/add bb/karen - if ever get hr down: cta vs cath to r/o cad
--- NOTE | 2023-05-20 13:32 | PCM.PROG ---
Progress Note Progress Note for Day of Date of Exam: 05/20/23 Subjective Subjective: Patient seen at bedside, no acute events overnight. She continues to have dyspnea, requiring 2L NC. Her HR remains elevated 115-120. She states she saw cardiology in the past and was told she has sinus tachycardia. She reports having an echocardiogram couple years ago which was normal. She has never had a heart cath. Denies chest pain or palpitations. Chest x-ray done yesterday showed vascular congestion and bilateral opacities. EKG showed sinus tachycardia. Echo was ordered. Labs/imaging reviewed - WBC 9.3 Hgb 10.7 - Resp panel negative - Blood Cx negative - Sputum Cx: pending -Echo results reviewed: EF 40 to 45%, grade 3 diastolic dysfunction, concerning for stress cardiomyopathy. Plan: Will consult cardiology for further evaluation. Continue telemetry and monitor heart rate. Wean O2 as tolerated. Patient is currently on IV Vancomycin. Replace electrolytes as needed. Follow surgery recommendations. Continue bronchodilators and IS. Continue anti-emetics and pain control. Patient also has a hx of anxiety, continue ativan prn and Vistaril. Monitor AM labs/imaging. Time spent for clinical assessment, reviewing labs/imaging, physical exam, decis ion making and documentation greater than 45 mins. Past Medical Family Social History Past Med/Fam/Surg Hx: No changes since H&P Allergies: Allergies aspirin Allergy (Unknown, Verified 04/23/23 10:49) Reason: Drug allergy hydromorphone Allergy (Unknown, Verified 04/23/23 10:49) Reason: Drug allergy mesalamine [Asacol] Allergy (Unknown, Verified 04/23/23 10:49) Reason: Drug allergy metoclopramide Allergy (Unknown, Verified 04/23/23 10:49) Reason: Drug allergy ondansetron [From Zofran (as hydrochloride)] Allergy (Unknown, Verified 04/23/23 10:49) Reason: Drug allergy Penicillins Allergy (Unknown, Verified 04/23/23 10:49) Reason: Drug allergy prochlorperazine Allergy (Unknown, Verified 04/23/23 10:49) Reason: Drug allergy acetaminophen [From Percocet] Allergy (Verified 05/07/23 11:32) amoxicillin Allergy (Verified 04/23/23 10:49) citric acid Allergy (Verified 04/23/23 10:49) haloperidol [From Haldol] Allergy (Verified 04/23/23 10:49) omeprazole Allergy (Verified 04/23/23 10:49) oxycodone [From Percocet] Allergy (Verified 05/07/23 11:32) Review of Systems ROS: No change since H&P Vital Signs and I&O's Vital Signs: Vital Signs Temperature 98.5 F Pulse Rate [Bilateral Radial] 114 Pulse Rate 113 Respiratory Rate 18 Respiratory Rate 18 Respiratory Rate 18 Respiratory Rate 20 Blood Pressure [Right Arm] 118/66 O2 Sat by Pulse Oximetry 98 O2 Sat by Pulse Oximetry 95 Intake and Output: Intake & Output 05/17/23 05/18/23 05/19/23 05/20/23 23:59 23:59 23:59 23:59 Intake Total 3668 / 3668 2790 / 2790 906 / 906 Balance 3668 / 3668 2790 / 2790 906 / 906 Physical Exam Eyes: Normal Nose: Normal Throat: Normal Respiratory: Generalized and Diminished Cardiovascular: Tachycardia Auscultation: Bowel Sounds: Normal Tenderness: Epigastric and Mild Skin: Normal Musculoskeletal: Normal Psychiatric: Normal Mood Description: Calm Affect: Normal Speech Pattern: Clear and Appropriate Laboratory and Diagnostics 05/20/23 05:56 05/20/23 05:56 Labs: 05/15/23 06:55 Blood Blood Culture - Final 05/15/23 06:48 Blood Blood Culture - Final 05/19/23 02:13 Sputum - Expectorated Sputum Sputum Culture - Preliminary 05/19/23 02:13 Sputum - Expectorated Sputum - Final Laboratory WBC 9.3 X10^3/uL (3.6-10.0) 05/20/23 05:56 RBC 3.91 X10^6/uL (3.5-5.4) 05/20/23 05:56 Hgb 10.7 g/dL (12.0-16.0) L 05/20/23 05:56 Hct 33.2 % (36.0-47.0) L 05/20/23 05:56 MCV 84.8 fL (80.0-100.0) 05/20/23 05:56 MCH 27.3 pg (27.0-34.0) 05/20/23 05:56 MCHC 32.1 g/dL (33.0-35.0) L 05/20/23 05:56 RDW 14.5 % (11.6-16.5) 05/20/23 05:56 Plt Count 450 X10^3/uL (150.0-450.0) 05/20/23 05:56 MPV 7.2 fL (7.4-11.0) L 05/20/23 05:56 Neut % (Auto) 56.7 % (42.0-75.0) 05/20/23 05:56 Lymph % (Auto) 24.4 % (21.0-51.0) 05/20/23 05:56 [place] % (Auto) 4.1 % (0.0-13.0) 05/20/23 05:56 Eos % (Auto) 13.5 % (0.9-2.9) H 05/20/23 05:56 Baso % (Auto) 1.3 % (0.2-1.0) H 05/20/23 05:56 Neut # (Auto) 5.3 x10^3/uL (2.2-4.8) H 05/20/23 05:56 Lymph # (Auto) 2.3 X10^3/uL (1.3-2.9) 05/20/23 05:56 [place] # (Auto) 0.4 x10^3/uL (0.3-0.8) 05/20/23 05:56 Eos # (Auto) 1.3 x10^3/uL (0.0-0.2) H 05/20/23 05:56 Baso # (Auto) 0.1 X10^3/uL (0.0-0.1) 05/20/23 05:56 Absolute Nucleated RBC 0.0 /100WBC 05/20/23 05:56 D-Dimer 3.86 ug/ml (0.0-0.57) H 05/15/23 03:33 Sodium 140 mmol/L (136-145) 05/20/23 05:56 Corrected Sodium 142 mmol/L (136-145) 05/20/23 05:56 Potassium 4.9 mmol/L (3.5-5.1) 05/20/23 05:56 Chloride 100 mmol/L (98-107) 05/20/23 05:56 Carbon Dioxide 31.6 mmol/L (21-32) 05/20/23 05:56 BUN 5 mg/dL (7-18) L 05/20/23 05:56 Creatinine 0.67 mg/dL (0.55-1.02) 05/20/23 05:56 Est GFR (MDRD) Af Amer > 60 (>60) 05/20/23 05:56 Est GFR (MDRD) Non-Af > 60 (>60) 05/20/23 05:56 Glucose 167 mg/dL (65-99) H 05/20/23 05:56 POC Glucose (mg/dL) 152 mg/dL (65-99) H 05/20/23 11:07 Lactic Acid 0.8 mmol/L (0.4-2.0) 05/15/23 06:55 Calcium 9.3 mg/dL (8.5-10.1) 05/20/23 05:56 Corrected Calcium 10.3 mg/dL (8.5-10.1) H 05/20/23 05:56 Magnesium 1.8 mg/dL (2.0-2.9) L 05/20/23 05:56 Total Bilirubin 0.30 mg/dL (0.2-1.0) 05/20/23 05:56 AST 30 Units/L (15-37) 05/20/23 05:56 ALT 19 Units/L (12-78) 05/20/23 05:56 Alkaline Phosphatase 93 Units/L (46-116) 05/20/23 05:56 Troponin I High Sens 49.1 ng/L (4.0-60.0) 05/20/23 05:56 C-Reactive Protein 27.10 mg/L (0-3.0) H 05/15/23 06:55 B-Natriuretic Peptide 151 pg/mL (0-79) H 05/15/23 03:33 Total Protein 6.8 g/dL (6.4-8.2) 05/20/23 05:56 Albumin 2.7 g/dL (3.4-5.0) L 05/20/23 05:56 Globulin 4.1 g/dL (2.5-4.5) 05/20/23 05:56 Albumin/Globulin Ratio 0.7 Ratio (1.1-2.1) L 05/20/23 05:56 Thyroxine (T4) 8.3 ug/dL (4.7-13.3) 05/20/23 05:56 TSH 3rd Generation 7.570 uIU/mL (0.358-3.74) H 05/20/23 05:56 Vancomycin Trough 10.7 ug/mL (15-20) L 05/19/23 20:15 Resp Viral Panel (PCR) See scanned report 05/15/23 11:22 SARS CoV-2 RNA Rapid RODOLFO Negative (NEGATIVE) 05/18/23 12:03 Plan (1) Cardiomyopathy: Status: Acute Qualifiers: Cardiomyopathy type: unspecified Qualified Code(s): I42.9 - Cardiomyopathy, unspecified (2) Bilateral pleural effusion: Status: Acute (3) Sinus tachycardia: Status: Acute (4) Pneumonia: Status: Acute Qualifiers: Laterality: bilateral Lung location: unspecified part of lung Pneumonia type: due to unspecified organism Qualified Code(s): J18.9 - Pneumonia, unspecified organism (5) Abdominal abscess: Status: Acute (6) Status post Christie fundoplication: Status: Acute (7) Hypomagnesemia: Status: Acute (8) VICKI (obstructive sleep apnea): Status: Acute
[2023-05-20] MEDS: NS 500 ML IV 500 ML IV ONE (21:23)
[2023-05-21 06:08] LABS: BASOPHILS # (AUTO) 0.1 X10^3/uL (0.0-0.1); BASOPHILS % (AUTO) 0.8 % (0.2-1.0); EOSINOPHILS # (AUTO) 1.4 x10^3/uL (0.0-0.2); EOSINOPHILS % (AUTO) 14.4 % (0.9-2.9); HEMATOCRIT 33.5 % (36.0-47.0); LYMPHOCYTES # (AUTO) 1.8 X10^3/uL (1.3-2.9); LYMPHOCYTES % (AUTO) 18.3 % (21.0-51.0); MEAN CORPUSCULAR HEMOGLOBIN 27.5 pg (27.0-34.0); MEAN CORPUSCULAR HGB CONC 32.8 g/dL (33.0-35.0); MEAN CORPUSCULAR VOLUME 83.9 fL (80.0-100.0); MEAN PLATELET VOLUME 7.3 fL (7.4-11.0); MONOCYTES # (AUTO) 0.4 x10^3/uL (0.3-0.8); MONOCYTES % (AUTO) 4.4 % (0.0-13.0); NEUTROPHILS % (AUTO) 62.1 % (42.0-75.0); PLATELET COUNT 476 X10^3/uL (150.0-450.0); RED BLOOD COUNT 3.99 X10^6/uL (3.5-5.4); RED CELL DISTRIBUTION WIDTH 14.6 % (11.6-16.5); WHITE BLOOD COUNT 9.6 X10^3/uL (3.6-10.0)
[2023-05-21 06:25] LABS: ALANINE AMINOTRANSFERASE 19 Units/L (12-78); ALBUMIN 2.8 g/dL (3.4-5.0); ALKALINE PHOSPHATASE 85 Units/L (46-116); ASPARTATE AMINO TRANSFERASE 32 Units/L (15-37); BLOOD UREA NITROGEN 9 mg/dL (7-18); CARBON DIOXIDE 31.4 mmol/L (21-32); CHLORIDE 99 mmol/L (98-107); COR NA(FOR HYPERGLY) 140 mmol/L (136-145); CREATININE 0.72 mg/dL (0.55-1.02); GLUCOSE 191 mg/dL (65-99); MAGNESIUM 1.7 mg/dL (2.0-2.9); POTASSIUM 4.2 mmol/L (3.5-5.1); SODIUM 138 mmol/L (136-145); TOTAL PROTEIN 6.7 g/dL (6.4-8.2); eGFR NON BLACK RACES > 60 (>60)
[2023-05-21] MEDS ORDERED: CONSULT PHARMACY - POTASSIUM & MAGNESIUM XX SCH (07:00)
--- NOTE | 2023-05-21 08:48 | DR.PROGNOT ---
HOSPITAL PROGRESS NOTE Progress Note for Day of: Progress Note Date: 05/21/23 Chief Complaint Chief Complaint: Complaining of shortness of breath with mild exertion. Tachycardia has improved with medications, her pulse rate is 98 with normal blood pressure. Still complaining of moderate incisional pain with associated nausea. Lab work is normal. Patient is afebrile.. History of Present Illness History of Present Illness: PT doing ok Sleepy this am, became agitated last pm, was given po vistaril. Breathing ok. No chest pain this am. Abdomen doing better. Past Medical Family Social History Past Med/Fam/Surg Hx: No changes since H&P Allergies: Allergies aspirin Allergy (Unknown, Verified 04/23/23 10:49) Reason: Drug allergy hydromorphone Allergy (Unknown, Verified 04/23/23 10:49) Reason: Drug allergy mesalamine [Asacol] Allergy (Unknown, Verified 04/23/23 10:49) Reason: Drug allergy metoclopramide Allergy (Unknown, Verified 04/23/23 10:49) Reason: Drug allergy ondansetron [From Zofran (as hydrochloride)] Allergy (Unknown, Verified 04/23/23 10:49) Reason: Drug allergy Penicillins Allergy (Unknown, Verified 04/23/23 10:49) Reason: Drug allergy prochlorperazine Allergy (Unknown, Verified 04/23/23 10:49) Reason: Drug allergy acetaminophen [From Percocet] Allergy (Verified 05/07/23 11:32) amoxicillin Allergy (Verified 04/23/23 10:49) citric acid Allergy (Verified 04/23/23 10:49) haloperidol [From Haldol] Allergy (Verified 04/23/23 10:49) omeprazole Allergy (Verified 04/23/23 10:49) oxycodone [From Percocet] Allergy (Verified 05/07/23 11:32) Review Of Systems ROS: No change since H&P Vital Signs Vital Signs: Vital Signs Temperature 97.7 F Pulse Rate [Bilateral Radial] 96 Pulse Rate 98 Respiratory Rate 20 Blood Pressure [Left Arm] 117/75 O2 Sat by Pulse Oximetry 97 O2 Sat by Pulse Oximetry 96 Physical Exam Eyes: Normal Nose: Normal Throat: Normal Respiratory: Generalized and Diminished Cardiovascular: Tachycardia GI:Auscultation: Normal GI:Palpation: Normal (soft abdomen , clean incision , BS+) GI: Tenderness: Epigastric and Mild Skin: Normal Musculoskeletal: Normal Psychiatric: Normal Mood Description: Calm Affect: Normal Speech Pattern: Clear and Appropriate Laboratory and Diagnostics 05/21/23 05:33 05/21/23 05:33 Labs: 05/15/23 06:55 Blood Blood Culture - Final 05/15/23 06:48 Blood Blood Culture - Final 05/19/23 02:13 Sputum - Expectorated Sputum Sputum Culture - Preliminary 05/19/23 02:13 Sputum - Expectorated Sputum - Final Laboratory WBC 9.6 X10^3/uL (3.6-10.0) 05/21/23 05:33 RBC 3.99 X10^6/uL (3.5-5.4) 05/21/23 05:33 Hgb 11.0 g/dL (12.0-16.0) L 05/21/23 05:33 Hct 33.5 % (36.0-47.0) L 05/21/23 05:33 MCV 83.9 fL (80.0-100.0) 05/21/23 05:33 MCH 27.5 pg (27.0-34.0) 05/21/23 05:33 MCHC 32.8 g/dL (33.0-35.0) L 05/21/23 05:33 RDW 14.6 % (11.6-16.5) 05/21/23 05:33 Plt Count 476 X10^3/uL (150.0-450.0) H 05/21/23 05:33 MPV 7.3 fL (7.4-11.0) L 05/21/23 05:33 Neut % (Auto) 62.1 % (42.0-75.0) 05/21/23 05:33 Lymph % (Auto) 18.3 % (21.0-51.0) L 05/21/23 05:33 [place] % (Auto) 4.4 % (0.0-13.0) 05/21/23 05:33 Eos % (Auto) 14.4 % (0.9-2.9) H 05/21/23 05:33 Baso % (Auto) 0.8 % (0.2-1.0) 05/21/23 05:33 Neut # (Auto) 6.0 x10^3/uL (2.2-4.8) H 05/21/23 05:33 Lymph # (Auto) 1.8 X10^3/uL (1.3-2.9) 05/21/23 05:33 [place] # (Auto) 0.4 x10^3/uL (0.3-0.8) 05/21/23 05:33 Eos # (Auto) 1.4 x10^3/uL (0.0-0.2) H 05/21/23 05:33 Baso # (Auto) 0.1 X10^3/uL (0.0-0.1) 05/21/23 05:33 Absolute Nucleated RBC 0.0 /100WBC 05/21/23 05:33 D-Dimer 3.86 ug/ml (0.0-0.57) H 05/15/23 03:33 Sodium 138 mmol/L (136-145) 05/21/23 05:33 Corrected Sodium 140 mmol/L (136-145) 05/21/23 05:33 Potassium 4.2 mmol/L (3.5-5.1) 05/21/23 05:33 Chloride 99 mmol/L (98-107) 05/21/23 05:33 Carbon Dioxide 31.4 mmol/L (21-32) 05/21/23 05:33 BUN 9 mg/dL (7-18) 05/21/23 05:33 Creatinine 0.72 mg/dL (0.55-1.02) 05/21/23 05:33 Est GFR (MDRD) Af Amer > 60 (>60) 05/21/23 05:33 Est GFR (MDRD) Non-Af > 60 (>60) 05/21/23 05:33 Glucose 191 mg/dL (65-99) H 05/21/23 05:33 POC Glucose (mg/dL) 187 mg/dL (65-99) H 05/21/23 05:25 Lactic Acid 0.8 mmol/L (0.4-2.0) 05/15/23 06:55 Calcium 9.0 mg/dL (8.5-10.1) 05/21/23 05:33 Corrected Calcium 10.0 mg/dL (8.5-10.1) 05/21/23 05:33 Magnesium 1.7 mg/dL (2.0-2.9) L 05/21/23 05:33 Total Bilirubin 0.30 mg/dL (0.2-1.0) 05/21/23 05:33 AST 32 Units/L (15-37) 05/21/23 05:33 ALT 19 Units/L (12-78) 05/21/23 05:33 Alkaline Phosphatase 85 Units/L (46-116) 05/21/23 05:33 Troponin I High Sens 49.1 ng/L (4.0-60.0) 05/20/23 05:56 C-Reactive Protein 27.10 mg/L (0-3.0) H 05/15/23 06:55 B-Natriuretic Peptide 151 pg/mL (0-79) H 05/15/23 03:33 Total Protein 6.7 g/dL (6.4-8.2) 05/21/23 05:33 Albumin 2.8 g/dL (3.4-5.0) L 05/21/23 05:33 Globulin 3.9 g/dL (2.5-4.5) 05/21/23 05:33 Albumin/Globulin Ratio 0.7 Ratio (1.1-2.1) L 05/21/23 05:33 Thyroxine (T4) 8.3 ug/dL (4.7-13.3) 05/20/23 05:56 TSH 3rd Generation 7.570 uIU/mL (0.358-3.74) H 05/20/23 05:56 Vancomycin Trough 10.7 ug/mL (15-20) L 05/19/23 20:15 Resp Viral Panel (PCR) See scanned report 05/15/23 11:22 SARS CoV-2 RNA Rapid RODOLFO Negative (NEGATIVE) 05/18/23 12:03 Assessment and Plan 1: Bilateral pneumonia - continue O2, IV antibiotics. DuoNeb and pulmonary care. on Vancomycin now .. 2: Cardiomyopathy with low ejection fraction 40%. Plan is as per Dr. Stewart 3: Diabetes mellitus - continue daily insulin, prn insulin coverage. Medical follow-up by Dr Sharp 4: Recent thrush - will add nystatin po QID. 5: Anxiety - will increase lorazepam to TID. Problem Patient Problems: Patient Problems (Updated 05/20/23 @ 13:30 by Batool Sharp) Pneumonia (Acute) J18.9 Abdominal abscess (Acute) Bilateral pleural effusion (Acute) J90 Multiple pulmonary nodules (Acute) R91.8
[2023-05-21] MEDS: LASIX PO SCH (08:55)
[2023-05-21] MEDS: ZESTRIL TAB 5 MG PO SCH (08:56)
[2023-05-21] MEDS: MAG-OX TAB PO SCH (09:02)
[2023-05-21] MEDS: PHARMACY COMMENT IV SCH (09:08)
--- NOTE | 2023-05-21 09:43 | PCM.PROG ---
Progress Note Progress Note for Day of Date of Exam: 05/21/23 Subjective Subjective: Patient admitted for abdominal abscess, pneumonia, and now cardiomyopathy. This morning she is resting in bed. She is requiring 2L NC. Her HR has stabilized below 100. No acute events overnight. Denies chest pain or palpitations. Labs/imaging reviewed - WBC 9.6, Hgb 11, Plt 476, Na 138, K 4.2, Creatinine 0.72, Glucose 191 - Resp panel negative, Blood Cx negative, Sputum Cx: negative - Echo results reviewed: EF 40 to 45%, grade 3 diastolic dysfunction, concerning for stress cardiomyopathy. Plan: Cardiology is consulted and following. Follow up on recommendations. Continue telemetry and monitor heart rate. Wean O2 as tolerated. Patient is currently on IV Vancomycin. Replace electrolytes as needed. Follow surgery recommendations. Continue bronchodilators and IS. Continue anti-emetics and pain control. Patient also has a hx of anxiety, continue ativan prn and Vistaril. Pt has been started on Coreg, PO Lasix, and Lisinopril. Order physical therapy. Monitor AM labs/imaging. Time spent for clinical assessment, reviewing labs/imaging, physical exam, decision making and documentation greater than 45 mins. Past Medical Family Social History Past Med/Fam/Surg Hx: No changes since H&P Allergies: Allergies aspirin Allergy (Unknown, Verified 04/23/23 10:49) Reason: Drug allergy hydromorphone Allergy (Unknown, Verified 04/23/23 10:49) Reason: Drug allergy mesalamine [Asacol] Allergy (Unknown, Verified 04/23/23 10:49) Reason: Drug allergy metoclopramide Allergy (Unknown, Verified 04/23/23 10:49) Reason: Drug allergy ondansetron [From Zofran (as hydrochloride)] Allergy (Unknown, Verified 04/23/23 10:49) Reason: Drug allergy Penicillins Allergy (Unknown, Verified 04/23/23 10:49) Reason: Drug allergy prochlorperazine Allergy (Unknown, Verified 04/23/23 10:49) Reason: Drug allergy acetaminophen [From Percocet] Allergy (Verified 05/07/23 11:32) amoxicillin Allergy (Verified 04/23/23 10:49) citric acid Allergy (Verified 04/23/23 10:49) haloperidol [From Haldol] Allergy (Verified 04/23/23 10:49) omeprazole Allergy (Verified 04/23/23 10:49) oxycodone [From Percocet] Allergy (Verified 05/07/23 11:32) Review of Systems ROS changes noted: see HPI Vital Signs and I&O's Vital Signs: Vital Signs Temperature 98.3 F Temperature 97.7 F Pulse Rate [Bilateral Radial] 95 Pulse Rate [Bilateral Radial] 96 Pulse Rate 98 Respiratory Rate 20 Respiratory Rate 20 Blood Pressure [Right Arm] 110/64 Blood Pressure [Left Arm] 117/75 O2 Sat by Pulse Oximetry 95 O2 Sat by Pulse Oximetry 97 O2 Sat by Pulse Oximetry 96 Intake and Output: Intake & Output 05/18/23 05/19/23 05/20/23 05/21/23 23:59 23:59 23:59 23:59 Intake Total 3668 / 3668 2790 / 2790 2447 / 2447 298 / 298 Balance 3668 / 3668 2790 / 2790 2447 / 2447 298 / 298 Physical Exam Eyes: Normal Nose: Normal Throat: Normal Respiratory: Generalized and Diminished Cardiovascular: Normal Auscultation: Bowel Sounds: Normal Tenderness: Epigastric and Mild Skin: Normal Musculoskeletal: Normal Psychiatric: Normal Mood Description: Calm Affect: Normal Speech Pattern: Clear and Appropriate Laboratory and Diagnostics 05/21/23 05:33 05/21/23 05:33 Labs: 05/15/23 06:55 Blood Blood Culture - Final 05/15/23 06:48 Blood Blood Culture - Final 05/19/23 02:13 Sputum - Expectorated Sputum Sputum Culture - Preliminary 05/19/23 02:13 Sputum - Expectorated Sputum - Final Laboratory WBC 9.6 X10^3/uL (3.6-10.0) 05/21/23 05:33 RBC 3.99 X10^6/uL (3.5-5.4) 05/21/23 05:33 Hgb 11.0 g/dL (12.0-16.0) L 05/21/23 05:33 Hct 33.5 % (36.0-47.0) L 05/21/23 05:33 MCV 83.9 fL (80.0-100.0) 05/21/23 05:33 MCH 27.5 pg (27.0-34.0) 05/21/23 05:33 MCHC 32.8 g/dL (33.0-35.0) L 05/21/23 05:33 RDW 14.6 % (11.6-16.5) 05/21/23 05:33 Plt Count 476 X10^3/uL (150.0-450.0) H 05/21/23 05:33 MPV 7.3 fL (7.4-11.0) L 05/21/23 05:33 Neut % (Auto) 62.1 % (42.0-75.0) 05/21/23 05:33 Lymph % (Auto) 18.3 % (21.0-51.0) L 05/21/23 05:33 [place] % (Auto) 4.4 % (0.0-13.0) 05/21/23 05:33 Eos % (Auto) 14.4 % (0.9-2.9) H 05/21/23 05:33 Baso % (Auto) 0.8 % (0.2-1.0) 05/21/23 05:33 Neut # (Auto) 6.0 x10^3/uL (2.2-4.8) H 05/21/23 05:33 Lymph # (Auto) 1.8 X10^3/uL (1.3-2.9) 05/21/23 05:33 [place] # (Auto) 0.4 x10^3/uL (0.3-0.8) 05/21/23 05:33 Eos # (Auto) 1.4 x10^3/uL (0.0-0.2) H 05/21/23 05:33 Baso # (Auto) 0.1 X10^3/uL (0.0-0.1) 05/21/23 05:33 Absolute Nucleated RBC 0.0 /100WBC 05/21/23 05:33 D-Dimer 3.86 ug/ml (0.0-0.57) H 05/15/23 03:33 Sodium 138 mmol/L (136-145) 05/21/23 05:33 Corrected Sodium 140 mmol/L (136-145) 05/21/23 05:33 Potassium 4.2 mmol/L (3.5-5.1) 05/21/23 05:33 Chloride 99 mmol/L (98-107) 05/21/23 05:33 Carbon Dioxide 31.4 mmol/L (21-32) 05/21/23 05:33 BUN 9 mg/dL (7-18) 05/21/23 05:33 Creatinine 0.72 mg/dL (0.55-1.02) 05/21/23 05:33 Est GFR (MDRD) Af Amer > 60 (>60) 05/21/23 05:33 Est GFR (MDRD) Non-Af > 60 (>60) 05/21/23 05:33 Glucose 191 mg/dL (65-99) H 05/21/23 05:33 POC Glucose (mg/dL) 187 mg/dL (65-99) H 05/21/23 05:25 Lactic Acid 0.8 mmol/L (0.4-2.0) 05/15/23 06:55 Calcium 9.0 mg/dL (8.5-10.1) 05/21/23 05:33 Corrected Calcium 10.0 mg/dL (8.5-10.1) 05/21/23 05:33 Magnesium 1.7 mg/dL (2.0-2.9) L 05/21/23 05:33 Total Bilirubin 0.30 mg/dL (0.2-1.0) 05/21/23 05:33 AST 32 Units/L (15-37) 05/21/23 05:33 ALT 19 Units/L (12-78) 05/21/23 05:33 Alkaline Phosphatase 85 Units/L (46-116) 05/21/23 05:33 Troponin I High Sens 49.1 ng/L (4.0-60.0) 05/20/23 05:56 C-Reactive Protein 27.10 mg/L (0-3.0) H 05/15/23 06:55 B-Natriuretic Peptide 151 pg/mL (0-79) H 05/15/23 03:33 Total Protein 6.7 g/dL (6.4-8.2) 05/21/23 05:33 Albumin 2.8 g/dL (3.4-5.0) L 05/21/23 05:33 Globulin 3.9 g/dL (2.5-4.5) 05/21/23 05:33 Albumin/Globulin Ratio 0.7 Ratio (1.1-2.1) L 05/21/23 05:33 Thyroxine (T4) 8.3 ug/dL (4.7-13.3) 05/20/23 05:56 TSH 3rd Generation 7.570 uIU/mL (0.358-3.74) H 05/20/23 05:56 Vancomycin Trough 10.7 ug/mL (15-20) L 05/19/23 20:15 Resp Viral Panel (PCR) See scanned report 05/15/23 11:22 SARS CoV-2 RNA Rapid RODOLFO Negative (NEGATIVE) 05/18/23 12:03 Plan (1) Cardiomyopathy: Status: Acute Qualifiers: Cardiomyopathy type: unspecified Qualified Code(s): I42.9 - Cardiomyopathy, unspecified (2) Bilateral pleural effusion: Status: Acute (3) Sinus tachycardia: Status: Acute (4) Pneumonia: Status: Acute Qualifiers: Laterality: bilateral Lung location: unspecified part of lung Pneumonia type: due to unspecified organism Qualified Code(s): J18.9 - Pneumonia, unspecified organism (5) Abdominal abscess: Status: Acute (6) Status post Christie fundoplication: Status: Acute (7) Hypomagnesemia: Status: Acute (8) VICKI (obstructive sleep apnea): Status: Acute
[2023-05-21 10:38] LABS: CREATININE 0.77 mg/dL (0.55-1.02); VANCOMYCIN,TROUGH 14.1 ug/mL (15-20)
--- NOTE | 2023-05-21 13:34 | NOTE.SOAP ---
Soap Note Note for Day of Date of Exam: 05/21/23 Subjective Data Subjective Data: sleeping today- no walking as of yet- po lasix not causing diuresis as iv lasix did yesterday- hr still 100 Objective Data Objective Data: bp 128/80 p 90-100 lungs few crackles, minimal edema labs: hct 33 k 4.2 bun/cr 9/0.7 Assessment Assessment: cardiomyopathy,chf, abscess post op Plan Plan: push coreg/just put on karen today-cont diuresis- check bnp in am
[2023-05-21] MEDS: ATIVAN TAB 1 MG PO SCH (21:06)
[2023-05-21] MEDS: COREG TAB 3.125 MG PO SCH (21:06)
[2023-05-21] MEDS: NS 500 ML IV 500 ML IV ONE (21:11)
[2023-05-22 01:06] VITALS: RESP 20
--- NOTE | 2023-05-22 05:14 | RAD ---
PROCEDURE: Chest X-ray 1 View.HISTORY: Follow-up pneumonia.TECHNIQUE: AP portable done at 10:38 a.m..COMPARISON: 05/19/2023.TECHNICAL QUALITY: Satisfactory.FINDINGS:Unchanged heart size upper limits of normal.Mediastinum and hilar regions show no masses or lymphadenopathy.Normal central vascularity.Consolidation both lung bases consistent with pneumonia similar to previous study. Definite pleural fluid.No acute bony abnormality.IMPRESSION:1. Unchanged bibasilar pneumonia.2. Unchanged heart size upper limits of normal.THIS IS AN ELECTRONICALLY VERIFIED FINAL REPORT05/22/2023 5:11 AM - Electronically signed by Dio Wahl MD
[2023-05-22 05:54] LABS: BASOPHILS # (AUTO) 0.1 X10^3/uL (0.0-0.1); BASOPHILS % (AUTO) 0.8 % (0.2-1.0); EOSINOPHILS # (AUTO) 1.6 x10^3/uL (0.0-0.2); EOSINOPHILS % (AUTO) 15.5 % (0.9-2.9); HEMATOCRIT 36.3 % (36.0-47.0); HEMOGLOBIN 11.8 g/dL (12.0-16.0); LYMPHOCYTES # (AUTO) 2.1 X10^3/uL (1.3-2.9); LYMPHOCYTES % (AUTO) 20.6 % (21.0-51.0); MEAN CORPUSCULAR HEMOGLOBIN 27.4 pg (27.0-34.0); MEAN CORPUSCULAR HGB CONC 32.4 g/dL (33.0-35.0); MEAN CORPUSCULAR VOLUME 84.7 fL (80.0-100.0); MEAN PLATELET VOLUME 7.3 fL (7.4-11.0); MONOCYTES # (AUTO) 0.6 x10^3/uL (0.3-0.8); MONOCYTES % (AUTO) 5.6 % (0.0-13.0); NEUTROPHILS # (AUTO) 5.9 x10^3/uL (2.2-4.8); NEUTROPHILS % (AUTO) 57.5 % (42.0-75.0); PLATELET COUNT 538 X10^3/uL (150.0-450.0); RED BLOOD COUNT 4.29 X10^6/uL (3.5-5.4); RED CELL DISTRIBUTION WIDTH 14.7 % (11.6-16.5); WHITE BLOOD COUNT 10.3 X10^3/uL (3.6-10.0)
[2023-05-22 06:01] LABS: ALANINE AMINOTRANSFERASE 26 Units/L (12-78); ALBUMIN 3.2 g/dL (3.4-5.0); ALKALINE PHOSPHATASE 106 Units/L (46-116); ASPARTATE AMINO TRANSFERASE 54 Units/L (15-37); BLOOD UREA NITROGEN 14 mg/dL (7-18); CALCIUM 9.4 mg/dL (8.5-10.1); CARBON DIOXIDE 30.9 mmol/L (21-32); CHLORIDE 98 mmol/L (98-107); COR NA(FOR HYPERGLY) 142 mmol/L (136-145); GLUCOSE 183 mg/dL (65-99); POTASSIUM 4.1 mmol/L (3.5-5.1); SODIUM 140 mmol/L (136-145); TOTAL PROTEIN 7.4 g/dL (6.4-8.2); eGFR NON BLACK RACES > 60 (>60)
[2023-05-22] MEDS ORDERED: CONSULT PHARMACY - POTASSIUM & MAGNESIUM XX SCH (07:00)
[2023-05-22 08:07] VITALS: BP 111/76; TEMP 98.4; O2SAT 94
--- NOTE | 2023-05-22 08:29 | NOTE.SOAP ---
Soap Note Note for Day of Date of Exam: 05/22/23 Subjective Data Subjective Data: c/o sob- problem is she remains in bed not walking Objective Data Objective Data: bp 110 p 90 lungs : no fluid/minimal edema legs labs: k 4.1 cr 0.7 bnp 60 ( normal) Assessment Assessment: cardiomyopathy, bnp now normal- suspect sob sx no doubt contributing by bedrest and deconditioning post op- on chf meds and PNA treatment Plan Plan: cont karen/coreg/lasix/k- if d/c i will f/u 1 week- will do echo in 2-3 weeks- if stress induced- will get better quickly with treatment
[2023-05-22 09:13] VITALS: PULSE 102
[2023-05-22] MEDS: MAG-OX TAB PO SCH (09:25)
--- NOTE | 2023-05-23 10:13 | PCM.PROG ---
Progress Note Progress Note for Day of Date of Exam: 05/22/23 Subjective Subjective: Patient admitted for abdominal abscess, pneumonia, and cardiomyopathy. This morning she is resting in bed. She is requiring 2L NC. Her HR has now stabilized below 100. No acute events overnight. Denies chest pain or palpitations. Labs/imaging reviewed - WBC 10.3, Hgb 11.8, Plt 538, Na 140, K 4.1, Creatinine 0.70, Glucose 183 - Resp panel negative, Blood Cx negative, Sputum Cx: negative - Echo results reviewed: EF 40 to 45%, grade 3 diastolic dysfunction, concerning for stress cardiomyopathy. Plan: Cardiology is consulted and following. Continue coreg, PO Lasix, and Lisinopril on discharge. Abscesses appears to be resolved. Will rx doxycycline x 5 days. Pt will be discharged today with home oxygen and instructed to follow up with general surgery, cardiology, and pcp. Pt will be referred to pulmonology outpatient. Past Medical Family Social History Past Med/Fam/Surg Hx: No changes since H&P Allergies: Allergies aspirin Allergy (Unknown, Verified 04/23/23 10:49) Reason: Drug allergy hydromorphone Allergy (Unknown, Verified 04/23/23 10:49) Reason: Drug allergy mesalamine [Asacol] Allergy (Unknown, Verified 04/23/23 10:49) Reason: Drug allergy metoclopramide Allergy (Unknown, Verified 04/23/23 10:49) Reason: Drug allergy ondansetron [From Zofran (as hydrochloride)] Allergy (Unknown, Verified 04/23/23 10:49) Reason: Drug allergy Penicillins Allergy (Unknown, Verified 04/23/23 10:49) Reason: Drug allergy prochlorperazine Allergy (Unknown, Verified 04/23/23 10:49) Reason: Drug allergy acetaminophen [From Percocet] Allergy (Verified 05/07/23 11:32) amoxicillin Allergy (Verified 04/23/23 10:49) citric acid Allergy (Verified 04/23/23 10:49) haloperidol [From Haldol] Allergy (Verified 04/23/23 10:49) omeprazole Allergy (Verified 04/23/23 10:49) oxycodone [From Percocet] Allergy (Verified 05/07/23 11:32) Review of Systems ROS changes noted: see HPI Vital Signs and I&O's Intake and Output: Intake & Output 05/20/23 05/21/23 05/22/23 05/23/23 23:59 23:59 23:59 23:59 Intake Total 2446 / 2448 / 1837 120 / 120 Balance 2446 / 2446 1837 / 183 120 / 120 Physical Exam Oriented: Normal Eyes: Normal Nose: Normal Throat: Normal Respiratory: Generalized and Diminished Cardiovascular: Normal Auscultation: Bowel Sounds: Normal Tenderness: Normal Skin: Normal Musculoskeletal: Normal Psychiatric: Normal Mood Description: Calm Affect: Normal Speech Pattern: Clear and Appropriate Laboratory and Diagnostics 05/22/23 05:15 05/22/23 05:15 Labs: 05/19/23 02:13 Sputum - Expectorated Sputum Sputum Culture - Final 05/19/23 02:13 Sputum - Expectorated Sputum - Final 05/15/23 06:55 Blood Blood Culture - Final 05/15/23 06:48 Blood Blood Culture - Final Laboratory WBC 10.3 X10^3/uL (3.6-10.0) H 05/22/23 05:15 RBC 4.29 X10^6/uL (3.5-5.4) 05/22/23 05:15 Hgb 11.8 g/dL (12.0-16.0) L 05/22/23 05:15 Hct 36.3 % (36.0-47.0) 05/22/23 05:15 MCV 84.7 fL (80.0-100.0) 05/22/23 05:15 MCH 27.4 pg (27.0-34.0) 05/22/23 05:15 MCHC 32.4 g/dL (33.0-35.0) L 05/22/23 05:15 RDW 14.7 % (11.6-16.5) 05/22/23 05:15 Plt Count 538 X10^3/uL (150.0-450.0) H 05/22/23 05:15 MPV 7.3 fL (7.4-11.0) L 05/22/23 05:15 Neut % (Auto) 57.5 % (42.0-75.0) 05/22/23 05:15 Lymph % (Auto) 20.6 % (21.0-51.0) L 05/22/23 05:15 [place] % (Auto) 5.6 % (0.0-13.0) 05/22/23 05:15 Eos % (Auto) 15.5 % (0.9-2.9) H 05/22/23 05:15 Baso % (Auto) 0.8 % (0.2-1.0) 05/22/23 05:15 Neut # (Auto) 5.9 x10^3/uL (2.2-4.8) H 05/22/23 05:15 Lymph # (Auto) 2.1 X10^3/uL (1.3-2.9) 05/22/23 05:15 [place] # (Auto) 0.6 x10^3/uL (0.3-0.8) 05/22/23 05:15 Eos # (Auto) 1.6 x10^3/uL (0.0-0.2) H 05/22/23 05:15 Baso # (Auto) 0.1 X10^3/uL (0.0-0.1) 05/22/23 05:15 Absolute Nucleated RBC 0.0 /100WBC 05/22/23 05:15 D-Dimer 3.86 ug/ml (0.0-0.57) H 05/15/23 03:33 Sodium 140 mmol/L (136-145) 05/22/23 05:15 Corrected Sodium 142 mmol/L (136-145) 05/22/23 05:15 Potassium 4.1 mmol/L (3.5-5.1) 05/22/23 05:15 Chloride 98 mmol/L (98-107) 05/22/23 05:15 Carbon Dioxide 30.9 mmol/L (21-32) 05/22/23 05:15 BUN 14 mg/dL (7-18) 05/22/23 05:15 Creatinine 0.70 mg/dL (0.55-1.02) 05/22/23 05:15 Est GFR (MDRD) Af Amer > 60 (>60) 05/22/23 05:15 Est GFR (MDRD) Non-Af > 60 (>60) 05/22/23 05:15 Glucose 183 mg/dL (65-99) H 05/22/23 05:15 POC Glucose (mg/dL) 132 mg/dL (65-99) H 05/22/23 12:52 Lactic Acid 0.8 mmol/L (0.4-2.0) 05/15/23 06:55 Calcium 9.4 mg/dL (8.5-10.1) 05/22/23 05:15 Corrected Calcium 10.0 mg/dL (8.5-10.1) 05/22/23 05:15 Magnesium 1.7 mg/dL (2.0-2.9) L 05/22/23 05:15 Total Bilirubin 0.30 mg/dL (0.2-1.0) 05/22/23 05:15 AST 54 Units/L (15-37) H 05/22/23 05:15 ALT 26 Units/L (12-78) 05/22/23 05:15 Alkaline Phosphatase 106 Units/L (46-116) 05/22/23 05:15 Troponin I High Sens 49.1 ng/L (4.0-60.0) 05/20/23 05:56 C-Reactive Protein 27.10 mg/L (0-3.0) H 05/15/23 06:55 B-Natriuretic Peptide 60.4 pg/mL (0-79) 05/22/23 05:15 Total Protein 7.4 g/dL (6.4-8.2) 05/22/23 05:15 Albumin 3.2 g/dL (3.4-5.0) L 05/22/23 05:15 Globulin 4.2 g/dL (2.5-4.5) 05/22/23 05:15 Albumin/Globulin Ratio 0.8 Ratio (1.1-2.1) L 05/22/23 05:15 Thyroxine (T4) 8.3 ug/dL (4.7-13.3) 05/20/23 05:56 Total T3 129 ng/dL (80-200) 05/20/23 05:56 TSH 3rd Generation 7.570 uIU/mL (0.358-3.74) H 05/20/23 05:56 Vancomycin Trough 14.1 ug/mL (15-20) L 05/21/23 09:32 Resp Viral Panel (PCR) See scanned report 05/15/23 11:22 SARS CoV-2 RNA Rapid RODOLFO Negative (NEGATIVE) 05/18/23 12:03 Plan (1) Cardiomyopathy: Status: Acute Qualifiers: Cardiomyopathy type: unspecified Qualified Code(s): I42.9 - Cardiomyopathy, unspecified (2) Bilateral pleural effusion: Status: Acute (3) Sinus tachycardia: Status: Acute (4) Pneumonia: Status: Acute Qualifiers: Laterality: bilateral Lung location: unspecified part of lung Pneumonia type: due to unspecified organism Qualified Code(s): J18.9 - Pneumonia, unspecified organism (5) Abdominal abscess: Status: Acute (6) Status post Christie fundoplication: Status: Acute (7) Hypomagnesemia: Status: Acute (8) VICKI (obstructive sleep apnea): Status: Acute
== END 2023-05-22 15:05 | disposition home or self-care (01) | DRG 194 ==
LOC: ER 02:58 → MED/SURG 10:30
PROVIDERS: ADMIT Surgery; ATTEND Surgery
DX: F41.8 Other specified anxiety disorders; L02.211 Cutaneous abscess of abdominal wall; I42.9 Cardiomyopathy, unspecified; Z20.822 Contact with and (suspected) exposure to COVID-19; G47.33 Obstructive sleep apnea (adult) (pediatric); K21.9 Gastro-esophageal reflux disease without esophagitis; Z98.890 Other specified postprocedural states; E11.65 Type 2 diabetes mellitus with hyperglycemia; R79.82 Elevated C-reactive protein (CRP); R06.02 Shortness of breath; E83.42 Hypomagnesemia; J90 Pleural effusion, not elsewhere classified; E87.6 Hypokalemia; R91.8 Other nonspecific abnormal finding of lung field; R10.84 Generalized abdominal pain; J18.8 Other pneumonia, unspecified organism; R00.0 Tachycardia, unspecified; R79.1 Abnormal coagulation profile

== ENCOUNTER 2024-01-13 15:47 | Observation (INO) ==
--- NOTE | 2024-01-13 16:45 | EKG ---
Test Reason : chest pain Blood Pressure : */* mmHG Vent. Rate : 117 BPM Atrial Rate : 117 BPM P-R Int : 144 ms QRS Dur : 80 ms QT Int : 354 ms P-R-T Axes : 42 23 20 degrees QTc Int : 493 ms Sinus tachycardia Otherwise normal ECG When compared with ECG of 12-JAN-2024 09:45, T wave inversion now evident in Lateral leads Confirmed by Collin Stewart MD ([id number]) on 01/14/2024 7:34:54 AM Referred By: Confirmed By: Collin Stewart MD
[2024-01-13 17:04] LABS: BASOPHILS # (AUTO) 0.1 X10^3/uL (0.0-0.1); BASOPHILS % (AUTO) 0.3 % (0.2-1.0); EOSINOPHILS # (AUTO) 0.1 x10^3/uL (0.0-0.2); EOSINOPHILS % (AUTO) 0.5 % (0.9-2.9); HEMATOCRIT 45.2 % (36.0-47.0); LYMPHOCYTES # (AUTO) 2.6 X10^3/uL (1.3-2.9); LYMPHOCYTES % (AUTO) 16.9 % (21.0-51.0); MEAN CORPUSCULAR HEMOGLOBIN 27.5 pg (27.0-34.0); MEAN CORPUSCULAR HGB CONC 33.2 g/dL (33.0-35.0); MEAN CORPUSCULAR VOLUME 82.8 fL (80.0-100.0); MONOCYTES # (AUTO) 0.8 x10^3/uL (0.3-0.8); MONOCYTES % (AUTO) 5.6 % (0.0-13.0); NEUTROPHILS # (AUTO) 11.6 x10^3/uL (2.2-4.8); NEUTROPHILS % (AUTO) 76.7 % (42.0-75.0); PLATELET COUNT 270 X10^3/uL (150.0-450.0); RED BLOOD COUNT 5.46 X10^6/uL (3.5-5.4); RED CELL DISTRIBUTION WIDTH 14.9 % (11.6-16.5); WHITE BLOOD COUNT 15.1 X10^3/uL (3.6-10.0)
[2024-01-13 17:13] LABS: ALANINE AMINOTRANSFERASE 32 Units/L (12-78); ALBUMIN 4.1 g/dL (3.4-5.0); ALKALINE PHOSPHATASE 108 Units/L (46-116); ASPARTATE AMINO TRANSFERASE 27 Units/L (15-37); BLOOD UREA NITROGEN 13 mg/dL (7-18); CALCIUM 9.2 mg/dL (8.5-10.1); CARBON DIOXIDE 33.4 mmol/L (21-32); CHLORIDE 97 mmol/L (98-107); COR NA(FOR HYPERGLY) 142 mmol/L (136-145); CREATININE 0.95 mg/dL (0.55-1.02); GLUCOSE 276 mg/dL (65-99); MAGNESIUM 1.3 mg/dL (2.0-2.9); POTASSIUM 3.6 mmol/L (3.5-5.1); SODIUM 138 mmol/L (136-145); TOTAL PROTEIN 7.9 g/dL (6.4-8.2); eGFR NON BLACK RACES > 60 (>60)
[2024-01-13] MEDS: NovoLIN R (or HumuLIN R) SUBCUT PRN (17:23)
[2024-01-13 17:32] VITALS: BMI 34.2
[2024-01-13] MEDS ORDERED: CONSULT PHARMACY - POTASSIUM & MAGNESIUM XX SCH (18:00)
[2024-01-13] MEDS: MORPHINE SULFATE INJ 2 MG INJ IVP PRN (18:04)
[2024-01-13] MEDS: PHENERGAN INJ 25 MG IM PRN (18:05)
[2024-01-13] MEDS: MAG-OX TAB PO SCH (20:27)
[2024-01-13] MEDS: COREG TAB 12.5 MG PO SCH (20:27)
[2024-01-13] MEDS: K-DUR TAB 20 MEQ PO SCH (20:27)
[2024-01-13] MEDS: SNACK - Diabetic Appropriate PO SCH (20:27)
--- NOTE | 2024-01-14 05:24 | RAD ---
EXAM: CHEST, 1 VIEW HISTORY: chest pain; COMPARISON: 01/12/2024 FINDINGS: The trachea is midline. The cardiac silhouette is unremarkable . The lungs are clear without focal infiltrate or effusion. The bony thorax is unremarkable. IMPRESSION: Normal chest THIS IS AN ELECTRONICALLY VERIFIED FINAL REPORT 01/14/2024 5:21 AM - Electronically signed by Evgeny Allen MD
--- NOTE | 2024-01-14 05:25 | RAD ---
EXAM: KUB HISTORY: abdominal pain; Unavailable COMPARISON: None. FINDINGS: Evaluation of the abdomen demonstrates a normal bowel gas pattern. There is a moderate amount of fec al material throughout the colon. Surgical clips in the left and right upper quadrants. No patholog ical soft tissue mass or calcification can be observed. The bony structures are grossly intact. IMPRESSION: No evidence for acute abdominal pathology identified. THIS IS AN ELECTRONICALLY VERIFIED FINAL REPORT 01/14/2024 5:22 AM - Electronically signed by Evgeny Allen MD
[2024-01-14 06:02] VITALS: O2SAT 100
[2024-01-14 06:43] LABS: BASOPHILS % (AUTO) 0.2 % (0.2-1.0); EOSINOPHILS # (AUTO) 0.2 x10^3/uL (0.0-0.2); HEMOGLOBIN 12.5 g/dL (12.0-16.0); LYMPHOCYTES # (AUTO) 3.8 X10^3/uL (1.3-2.9); LYMPHOCYTES % (AUTO) 36.4 % (21.0-51.0); MEAN CORPUSCULAR HEMOGLOBIN 27.9 pg (27.0-34.0); MEAN CORPUSCULAR HGB CONC 33.6 g/dL (33.0-35.0); MEAN PLATELET VOLUME 7.8 fL (7.4-11.0); MONOCYTES # (AUTO) 0.5 x10^3/uL (0.3-0.8); NEUTROPHILS # (AUTO) 5.8 x10^3/uL (2.2-4.8); NEUTROPHILS % (AUTO) 56.4 % (42.0-75.0); PLATELET COUNT 215 X10^3/uL (150.0-450.0); RED BLOOD COUNT 4.46 X10^6/uL (3.5-5.4); RED CELL DISTRIBUTION WIDTH 14.5 % (11.6-16.5); WHITE BLOOD COUNT 10.3 X10^3/uL (3.6-10.0)
[2024-01-14 07:21] LABS: BLOOD UREA NITROGEN 14 mg/dL (7-18); CARBON DIOXIDE 31.8 mmol/L (21-32); CHLORIDE 100 mmol/L (98-107); CREATININE 0.77 mg/dL (0.55-1.02); POTASSIUM 3.7 mmol/L (3.5-5.1); SODIUM 140 mmol/L (136-145); eGFR NON BLACK RACES > 60 (>60)
[2024-01-14 07:22] LABS: ALANINE AMINOTRANSFERASE 26 Units/L (12-78); ALBUMIN 3.4 g/dL (3.4-5.0); ALKALINE PHOSPHATASE 83 Units/L (46-116); ASPARTATE AMINO TRANSFERASE 24 Units/L (15-37); CALCIUM 8.8 mg/dL (8.5-10.1); COR NA(FOR HYPERGLY) 142 mmol/L (136-145); GLUCOSE 187 mg/dL (65-99); TOTAL PROTEIN 6.7 g/dL (6.4-8.2)
[2024-01-14 07:23] LABS: MAGNESIUM 2.1 mg/dL (2.0-2.9)
[2024-01-14] MEDS ORDERED: CONSULT PHARMACY - POTASSIUM & MAGNESIUM XX SCH (08:00)
[2024-01-14 08:09] VITALS: TEMP 98.4
[2024-01-14] MEDS: K-DUR TAB 20 MEQ PO SCH (08:29)
[2024-01-14] MEDS ORDERED: LASIX PO SCH (09:00)
[2024-01-14] MEDS ORDERED: PATIENT'S HOME MEDICATION (Omeprazole 40 mg capsule,delayed release(DR/EC)) PO SCH (09:00)
[2024-01-14] MEDS ORDERED: PriLOSEC PO SCH (09:00)
[2024-01-14 09:14] VITALS: PULSE 93
[2024-01-14] MEDS: LASIX PO SCH (09:19)
[2024-01-14] MEDS: ZESTRIL TAB 5 MG PO SCH (09:28)
--- NOTE | 2024-01-14 09:56 | DR.H&P ---
H&P History & Physical for Day of: H&P Date: 01/13/24 Chief Complaint Chief Complaint: chest pain shortness of breath History of Present Illness History of Present Illness: Patient is a 43-year-old female with past medical history of hypertension, type 2 diabetes mellitus, CHF, asthma, presenting with chest pain and shortness of breath that acutely worsened over the past day. She was seen in clinic and was reporting a lot of chest tightness. She was directly admitted to [facility] for chest pain rule out and chf exacerbation. Labs/imaging: WBC 15.1, hemoglobin 15, Platelets 270 sodium 138, potassium 3.6, creatinine 0.95, glucose 276. Will order chest x-ray, KUB, BNP, EKG, and troponin to further evaluate. Will keep on telemetry. Restart home medications. Pain control. Continue closely monitor and follow-up labs/imaging. 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, Hysterectomy and Ortho Surgery Family History Family Medical History: DC, Heart Failure and Hypertension Allergies Allergies Allergy/AdvReac Type Severity Reaction Status Date / Time aspirin Allergy Unknown Verified 01/12/24 09:55 hydromorphone Allergy Unknown Verified 01/12/24 09:55 mesalamine [Asacol] Allergy Unknown Verified 01/12/24 09:55 metoclopramide Allergy Unknown Verified 01/12/24 09:55 ondansetron Allergy Unknown Verified 01/12/24 09:55 [From Zofran (as hydrochloride)] Penicillins Allergy Unknown Verified 01/12/24 09:55 prochlorperazine Allergy Unknown Verified 01/12/24 09:55 acetaminophen [From Percocet] Allergy Verified 01/12/24 09:55 amoxicillin Allergy Verified 01/12/24 09:55 citric acid Allergy Verified 01/12/24 09:55 haloperidol [From Haldol] Allergy Verified 01/12/24 09:55 omeprazole Allergy Verified 01/12/24 09:55 oxycodone [From Percocet] Allergy Verified 01/12/24 09:55 Labs 01/14/24 06:09 01/14/24 06:09 Review of Systems Constitutional: No Symptoms Reported Eyes: No Symptoms Reported ENT: No Symptoms Reported Respiratory: Shortness of Breath Cardiovascular: Chest Pain Gastrointestinal: No Symptoms Reported Genitourinary: No Symptoms Reported Musculoskeletal: No Symptoms Reported Skin: No Symptoms Reported Neurological: No Symptoms Reported Physical Exam Vital Signs: Vital Signs Blood Pressure 117/84 Oriented: Normal Eyes: Normal Ear: Normal Nose: Normal Throat: Normal Respiratory: Clear Throughout Cardiovascular: Normal : Normal Auscultation: Bowel Sounds: Normal Palpation: Normal Tenderness: Normal Skin: Normal Musculoskeletal: Normal Psychiatric: Normal Mood Description: Calm and Appropriate Affect: Normal Speech Pattern: Clear and Appropriate Assessment/Plan (1) Chest pain, rule out acute myocardial infarction: Status: Acute Plan: ekg, serial cardiac enzymes, chest xr, telemetry (2) CHF exacerbation: Qualifiers: Heart failure type: unspecified Qualified Code(s): I50.9 - Heart failure, unspecified Status: Acute Plan: restart home medications included lasix Review H&P Reviewed: Yes Patient was examined?: Yes
[2024-01-14 10:05] VITALS: BP 102/64; RESP 30
== END 2024-01-14 10:20 | disposition home or self-care (01) ==
LOC: ICU
PROVIDERS: ADMIT Family Medicine; ATTEND Family Medicine
DX: R07.89 Other chest pain; I11.0 Hypertensive heart disease with heart failure; Z60.8 Other problems related to social environment; Z65.8 Other specified problems related to psychosocial circumstances; I50.9 Heart failure, unspecified; E11.65 Type 2 diabetes mellitus with hyperglycemia; E83.42 Hypomagnesemia; R06.02 Shortness of breath; K21.9 Gastro-esophageal reflux disease without esophagitis

== ENCOUNTER 2024-09-29 09:08 | Inpatient (IN) ==
[2024-09-29] MEDS: NS 500 ML IV 500 ML IV ONE ×2 (09:40→14:39)
[2024-09-29 09:41] LABS: MEAN PLATELET VOLUME 8.3 fL (7.4-11.0); RED CELL DISTRIBUTION WIDTH 14.6 % (11.6-16.5)
[2024-09-29 09:50] LABS: COR NA(FOR HYPERGLY) 136 mmol/L (136-145); CREATININE 1.05 mg/dL (0.55-1.02); eGFR NON BLACK RACES > 60 (>60)
--- NOTE | 2024-09-29 09:50 | EKG ---
Test Reason : hypotension Blood Pressure : */* mmHG Vent. Rate : 77 BPM Atrial Rate : 77 BPM P-R Int : 142 ms QRS Dur : 86 ms QT Int : 416 ms P-R-T Axes : 33 21 35 degrees QTc Int : 470 ms Normal sinus rhythm Cannot rule out Anterior infarct , age undetermined Abnormal ECG When compared with ECG of 13-JAN-2024 16:25, Vent. rate has decreased BY 40 BPM Confirmed by Collin Stewart MD ([id number]) on 09/29/2024 10:52:14 AM Referred By: Confirmed By: Collin Stewart MD
[2024-09-29] MEDS: LEVOPHED INJ (VIAL) 8 MG in D5W 250 ML IV 250 ML IV PRN (10:34)
--- NOTE | 2024-09-29 10:38 | DR.SOBA ---
HPI Time Seen Time Seen by Provider: 09/29/24 09:20 Primary Care Physician Primary Care Physician: Stephanie HPI Comment HPI Comment: Patient states she is feeling lightheaded and her blood pressure has been low since last night patient states she felt very wore out and just fell asleep unsure if she passed out versus unconscious. Patient states this morning she woke up and her blood pressure was a little low but she still took her lisinopril gabapentin tizanidine meloxicam and Coreg. She denies fever chills nausea vomiting diarrhea constipation, chest pain. Denies wheezing or shortness of breath but states she has been on oxygen due to CHF. She was satting 99% on 2 L nasal cannula which is what she uses at home. Her blood pressure was found to be very low Complaints Chief Complaint:: Pt states she had an episode of unconsciousness around 10 pm last night. This morning she's felt dizzy and lethargic, so she had her family call 911. Pt states she took Lisinopril, Gabapentin, Tizanidine, Meloxicam and coreg around 0800 this morning. Denies fever, chills, n/v, diarrhea. OTBS with EMS was 368. PT was in [place] ER for DKA 6 weeks ago and hasn't felt well since. COVID-19 Coronavirus risk:travel/contact w/high risk person: No Has patient experienced Coronavirus symptoms: No Source History Provided: Patient Mode of Arrival Mode of Arrival: EMS Timing Onset of Chief Complaint: 09/28/24 PMH PMH Past Medical History: Yes Past Medical History: Anemia, Anxiety, Arthritis, Asthma, CHF, Diabetes, GERD and Seizures Past Surgical History: Yes Surgical History: , Cholecystectomy, [employer] Surgery, Hysterectomy and Ortho Surgery Family History History of Family Medical Conditions: Yes Family Medical History: MA, Heart Failure and Hypertension Social History Alcohol Use: None Do you use any recreational Drugs:: No Lives With: Family Lives Where: Home Travel Risk Coronavirus risk:travel/contact w/high risk person: No Has patient experienced Coronavirus symptoms: No Infectious screening Have you traveled outside the country in the last 6 months?: No Isolation: Standard ROS Review of Systems Constitutional: Weakness and Fatigue; negative Fever Eyes: No Symptoms Reported ENTM: No Symptoms Reported Respiratoy: No Symptoms Reported Cardiovascular: No Symptoms Reported and Syncope; negative Chest Pain, Edema or Palpitations Gastrointestinal/Abdominal: No Symptoms Reported Genitourinary: No Symptoms Reported Neurological: No Symptoms Reported Musculoskeletal: No Symptoms Reported Integumentary: No Symptoms Reported Hematologic/Lymphatic: No Symptoms Reported Endocrine: No Symptoms Reported Psychiatric: No Symptoms Reported All Other Systems: Reviewed and Negative PE Vital Signs Vitals: Vital Signs Temperature 98.3 F Temperature 98.3 F Pulse Rate 81 Pulse Rate 79 Pulse Rate 79 Pulse Rate 79 Pulse Rate 78 Pulse Rate 78 Pulse Rate 77 Pulse Rate 78 Pulse Rate 81 Pulse Rate 85 Pulse Rate 85 Pulse Rate 78 Pulse Rate 77 Pulse Rate 77 Pulse Rate 80 Pulse Rate 80 Pulse Rate 79 Pulse Rate 79 Pulse Rate 79 Pulse Rate 78 Pulse Rate 78 Pulse Rate 78 Pulse Rate 78 Pulse Rate 77 Pulse Rate 77 Pulse Rate 77 Pulse Rate 78 Pulse Rate 75 Pulse Rate 75 Pulse Rate 78 Pulse Rate 77 Pulse Rate 79 Pulse Rate 79 Pulse Rate 79 Pulse Rate 82 Pulse Rate 81 Pulse Rate 80 Pulse Rate 81 Pulse Rate 79 Pulse Rate 79 Pulse Rate 77 Pulse Rate 77 Pulse Rate 77 Pulse Rate 82 Pulse Rate 82 Respiratory Rate 16 Respiratory Rate 19 Respiratory Rate 16 Respiratory Rate 16 Respiratory Rate 18 Respiratory Rate 18 Respiratory Rate 16 Respiratory Rate 14 Respiratory Rate 14 Respiratory Rate 16 Respiratory Rate 16 Respiratory Rate 15 Respiratory Rate 15 Respiratory Rate 16 Respiratory Rate 16 Respiratory Rate 16 Respiratory Rate 15 Respiratory Rate 15 Respiratory Rate 16 Respiratory Rate 19 Respiratory Rate 17 Respiratory Rate 21 Respiratory Rate 15 Respiratory Rate 21 Respiratory Rate 18 Respiratory Rate 16 Respiratory Rate 20 Respiratory Rate 20 Respiratory Rate 22 Respiratory Rate 21 Respiratory Rate 18 Respiratory Rate 21 Respiratory Rate 19 Respiratory Rate 30 Respiratory Rate 22 Respiratory Rate 17 Respiratory Rate 16 Respiratory Rate 16 Blood Pressure 118/69 Blood Pressure 124/71 Blood Pressure 127/67 Blood Pressure 126/62 Blood Pressure 121/62 Blood Pressure 122/68 Blood Pressure 130/66 Blood Pressure 116/66 Blood Pressure 104/66 Blood Pressure 141/67 Blood Pressure 126/68 Blood Pressure 126/68 Blood Pressure 126/68 Blood Pressure 126/68 Blood Pressure 113/57 Blood Pressure 113/57 Blood Pressure 113/57 Blood Pressure 83/50 Blood Pressure 83/50 Blood Pressure 83/50 Blood Pressure 87/50 Blood Pressure 87/50 Blood Pressure 87/50 Blood Pressure 87/50 Blood Pressure 84/47 Blood Pressure 84/47 Blood Pressure 100/52 Blood Pressure 94/55 Blood Pressure 88/55 Blood Pressure 103/53 Blood Pressure 98/53 Blood Pressure 100/56 Blood Pressure 98/57 Blood Pressure 106/58 Blood Pressure 102/58 Blood Pressure 102/58 Blood Pressure 102/58 Blood Pressure 107/61 Blood Pressure 105/60 Blood Pressure 96/55 Blood Pressure 84/49 Blood Pressure 81/44 Blood Pressure 73/42 Blood Pressure 79/42 Blood Pressure 79/47 Blood Pressure 70/40 Blood Pressure 67/44 Blood Pressure 69/48 Blood Pressure 84/53 Blood Pressure 84/53 O2 Sat by Pulse Oximetry 99 O2 Sat by Pulse Oximetry 99 O2 Sat by Pulse Oximetry 98 O2 Sat by Pulse Oximetry 99 O2 Sat by Pulse Oximetry 98 O2 Sat by Pulse Oximetry 99 O2 Sat by Pulse Oximetry 98 O2 Sat by Pulse Oximetry 99 O2 Sat by Pulse Oximetry 97 O2 Sat by Pulse Oximetry 100 O2 Sat by Pulse Oximetry 99 O2 Sat by Pulse Oximetry 99 O2 Sat by Pulse Oximetry 98 O2 Sat by Pulse Oximetry 99 O2 Sat by Pulse Oximetry 100 O2 Sat by Pulse Oximetry 100 O2 Sat by Pulse Oximetry 100 O2 Sat by Pulse Oximetry 100 O2 Sat by Pulse Oximetry 100 O2 Sat by Pulse Oximetry 100 O2 Sat by Pulse Oximetry 100 O2 Sat by Pulse Oximetry 100 O2 Sat by Pulse Oximetry 100 O2 Sat by Pulse Oximetry 100 O2 Sat by Pulse Oximetry 100 O2 Sat by Pulse Oximetry 99 O2 Sat by Pulse Oximetry 99 O2 Sat by Pulse Oximetry 99 O2 Sat by Pulse Oximetry 99 O2 Sat by Pulse Oximetry 99 O2 Sat by Pulse Oximetry 99 O2 Sat by Pulse Oximetry 98 O2 Sat by Pulse Oximetry 98 O2 Sat by Pulse Oximetry 99 O2 Sat by Pulse Oximetry 99 O2 Sat by Pulse Oximetry 98 O2 Sat by Pulse Oximetry 98 O2 Sat by Pulse Oximetry 97 O2 Sat by Pulse Oximetry 96 O2 Sat by Pulse Oximetry 97 O2 Sat by Pulse Oximetry 98 O2 Sat by Pulse Oximetry 96 O2 Sat by Pulse Oximetry 96 General Limitations: No Limitations General Appearance: Alert and In No Apparent Distress Head Head Exam: Normal Inspection Eyes Eye exam: Normal Appearance ENT ENT Exam: Normal Exam Neck Neck Exam: Normal Inspection Chest Chest Inspection: Normal Inspection Respiratory Respiratory Exam: Normal Lung Sounds Bilat Respiratory Exam: Bilateral: Clear to Auscultation Cardiovascular Cardiovascular Exam: Regular Rate and Normal Rhythm Abdominal Exam Abdominal Exam: Normal Inspection, Normal Bowel Sounds and Soft; negative Distention, Tenderness, Guarding, Rebound or Rigidity Extremities Extremities Exam: Normal Inspection Back Back Exam: Normal Inspection Neurologic Neurological Exam: Alert and Oriented X3 Psychiatric Psychiatric Exam: Normal Affect and Normal Mood Skin Skin Exam: Warm, Dry, Intact and Normal Color COURSE Treatment Treatment: Discussed results of workup with patient. Blood pressure improved on Levophed and 1500 mL of normal saline. Due to CHF we will continue with more gentle hydration. No sign of infection. Suspect hypotension may be related to medications. Consultation Called: 13:30 Consultation Comments: Discussed case with Dr. Brown. He is agreeable to admission [facility]OR Labs Reviewed Laboratory Results Reviewed?: Yes 09/29/24 09:17 09/29/24 09:17 Laboratory: WBC 10.5 X10^3/uL (3.6-10.0) H 09/29/24 09:17 RBC 4.57 X10^6/uL (3.5-5.4) 09/29/24 09:17 Hgb 13.5 g/dL (12.0-16.0) 09/29/24 09:17 Hct 37.1 % (36.0-47.0) 09/29/24 09:17 MCV 81.1 fL (80.0-100.0) 09/29/24 09:17 MCH 29.4 pg (27.0-34.0) 09/29/24 09:17 MCHC 36.3 g/dL (33.0-35.0) H 09/29/24 09:17 RDW 14.6 % (11.6-16.5) 09/29/24 09:17 Plt Count 256 X10^3/uL (150.0-450.0) 09/29/24 09:17 MPV 8.3 fL (7.4-11.0) 09/29/24 09:17 Neut % (Auto) 60.4 % (42.0-75.0) 09/29/24 09:17 Lymph % (Auto) 31.0 % (21.0-51.0) 09/29/24 09:17 [place] % (Auto) 4.3 % (0.0-13.0) 09/29/24 09:17 Eos % (Auto) 3.3 % (0.9-2.9) H 09/29/24 09:17 Baso % (Auto) 1.0 % (0.2-1.0) 09/29/24 09:17 Neut # (Auto) 6.3 x10^3/uL (2.2-4.8) H 09/29/24 09:17 Lymph # (Auto) 3.3 X10^3/uL (1.3-2.9) H 09/29/24 09:17 [place] # (Auto) 0.5 x10^3/uL (0.3-0.8) 09/29/24 09:17 Eos # (Auto) 0.3 x10^3/uL (0.0-0.2) H 09/29/24 09:17 Baso # (Auto) 0.1 X10^3/uL (0.0-0.1) 09/29/24 09:17 Absolute Nucleated RBC 0.4 /100WBC 09/29/24 09:17 Sodium 129 mmol/L (136-145) L 09/29/24 09:17 Corrected Sodium 136 mmol/L (136-145) 09/29/24 09:17 Potassium 3.5 mmol/L (3.5-5.1) 09/29/24 09:17 Chloride 88 mmol/L (98-107) L 09/29/24 09:17 Carbon Dioxide 29.4 mmol/L (21-32) 09/29/24 09:17 BUN 14 mg/dL (7-18) 09/29/24 09:17 Creatinine 1.05 mg/dL (0.55-1.02) H 09/29/24 09:17 Est GFR (MDRD) Af Amer > 60 (>60) 09/29/24 09:17 Est GFR (MDRD) Non-Af > 60 (>60) 09/29/24 09:17 Glucose 375 mg/dL (65-99) H 09/29/24 09:17 POC Glucose (mg/dL) 373 mg/dL (65-99) H 09/29/24 12:13 Lactic Acid 0.5 mmol/L (0.4-2.0) 09/29/24 10:21 Calcium 8.3 mg/dL (8.5-10.1) L 09/29/24 09:17 Corrected Calcium TNP 09/29/24 09:17 Magnesium 2.0 mg/dL (2.0-2.9) 09/29/24 09:17 Total Bilirubin 0.70 mg/dL (0.2-1.0) 09/29/24 09:17 AST 146 Units/L (15-37) H 09/29/24 09:17 ALT 84 Units/L (12-78) H 09/29/24 09:17 Alkaline Phosphatase 171 Units/L (46-116) H 09/29/24 09:17 Creatine Kinase 43 Units/L (26-192) 09/29/24 09:17 Troponin I High Sens 12.5 ng/L (4.0-60.0) 09/29/24 12:22 B-Natriuretic Peptide < 5.0 pg/mL (0-79) 09/29/24 09:17 Total Protein 7.7 g/dL (6.4-8.2) 09/29/24 09:17 Albumin 3.5 g/dL (3.4-5.0) 09/29/24 09:17 Globulin 4.2 g/dL (2.5-4.5) 09/29/24 09:17 Albumin/Globulin Ratio 0.8 Ratio (1.1-2.1) L 09/29/24 09:17 XRAY XRAY Interpreted by: Self (Chest x-ray reviewed and interpreted by myself. Radiologist interpretation not available at this time. No acute cardiopulmonary findings noted.) Opioid Opioid Risk Tool Age (Cesar box if 16-45): Yes History of Preadolescent Sexual Abuse: No Total: 1 Total Score Risk Category: Low Risk Copyright: Ish SONG predicting aberrant behaviors Discharge Plan Diagnosis Discharge Problem: Acute hypotension, Hyperglycemia, Elevated liver enzymes Discharge Plan Patient Disposition: ADMITTED INPATIENT Condition: Stable Prescriptions: No Action hydroxyzine pamoate 25 mg capsule 50 mg PO DAILY Qty: 20 0RF carvedilol [Coreg] 12.5 mg tablet 12.5 mg PO Q12H Qty: 120 4RF Rx Instructions: must administer with a meal/food omeprazole 40 mg capsule,delayed release(DR/EC) 40 mg PO QDAY 30 Days Qty: 30 2RF glipizide 10 mg tablet extended release 24hr 10 mg PO QDAY 30 Days Qty: 30 0RF hydrocodone-acetaminophen 7.5-325 mg tablet 1 tab PO BID MDD 2 PRN (Reason: pain) 30 Days Qty: 60 0RF insulin glargine [Lantus Solostar U-100 Insulin] 100 unit/mL (3 mL) insulin pen 50 unit subcut QDAY 30 Days Qty: 15 2RF lorazepam 1 mg tablet 1 mg PO BID MDD 2 30 Days Qty: 60 0RF meloxicam 7.5 mg tablet 7.5 mg PO QDAY PRN (Reason: pain) 30 Days Qty: 30 0RF lisinopril 2.5 mg tablet 2.5 mg PO QDAY 30 Days Qty: 30 1RF furosemide 40 mg tablet 40 mg PO BID 30 Days Qty: 60 2RF epinephrine [EpiPen 2-Calvin] 0.3 mg/0.3 mL auto-injector 0.3 ml IM ONCE Qty: 2 0RF Rx Instructions: as a single dose; may repeat once gabapentin 600 mg tablet 600 mg PO TID tizanidine 2 mg tablet 2 mg PO TID PRN ivabradine 5 mg tablet 5 mg PO BID [place] 45 mg tablet 45 mg PO QDAY albuterol sulfate 90 mcg/actuation HFA aerosol inhaler 2 puff inhalation Q6H PRNQty: 6.7 0RF lorazepam 1 mg tablet 1 mg PO BID Health Concerns: Post Hospitalization: new medications and changes needed to prevent readmission or further decline. Pt educated and given instructions on all concerns. Plan of Treatment: Continue with present treatment and follow up plan. Pt is to keep follow up appointment as instructed and take medications as ordered. Orders to Discharge Patient Discharge Orders: Transfer (Routine); Ordered 09/29/24 Ordered By: Rey Silva Follow ups/Referrals Follow ups/Referrals: Miquel Brown MD [STAFF PHYSICIAN, MEDICAL] - 3 days Instructions Stand Alone Forms: Find Help Web Site, Post Hospital Follow Up Care Print Language: SCOTTISH
[2024-09-29] MEDS: NovoLIN R (or HumuLIN R) IV ONE (11:03)
[2024-09-29] MEDS: NS 1,000 ML IV 1,000 ML IV ONE (11:03)
--- NOTE | 2024-09-29 11:39 | RAD ---
EXAMINATION: CHEST, 1 VIEW HISTORY: Shortness of Breath; . COMPARISON STUDY: Chest x-ray 08/04/2024 TECHNIQUE: Single frontal erect view of the chest FINDINGS: Lungs are expanded. Cardiac silhouette borderline enlarged. Normal pulmonary vascular pattern. Bones appear intact. IMPRESSION: Borderline cardiac silhouette enlargement. THIS IS AN ELECTRONICALLY VERIFIED FINAL REPORT 09/29/2024 11:36 AM - Electronically signed by Anya Kelley MD
[2024-09-29] MEDS ORDERED: VENTOLIN or PROAIR HFA IN PRN (14:07)
[2024-09-29] MEDS: K-DUR TAB 20 MEQ PO ONE (16:17)
[2024-09-29] MEDS: NS 1,000 ML IV 1,000 ML IV SCH (16:17)
[2024-09-29] MEDS: NovoLIN R (or HumuLIN R) SUBCUT PRN (17:01)
[2024-09-29] MEDS: NORCO 5/325 MG TAB PO PRN (17:03)
[2024-09-29 19:02] LABS: BLOOD/HEMOGLOBIN,URINE NEGATIVE (NEGATIVE); LEUKOCYTE ESTERASE ,URINE NEGATIVE (NEGATIVE); NITRITES,URINE NEGATIVE (NEGATIVE)
[2024-09-29 19:03] LABS: APPEARANCE,URINE CLEAR (CLEAR)
[2024-09-29] MEDS: PEPCID TAB 20 MG PO SCH (21:05)
[2024-09-29] MEDS: LANTUS SC SCH (21:09)
[2024-09-30] MEDS: PHENERGAN INJ 25 MG IM PRN ×2 (03:20→09:45)
[2024-09-30 05:39] LABS: COR CA(FOR HYPOALB) 9.0 mg/dL (8.5-10.1); COR NA(FOR HYPERGLY) 141 mmol/L (136-145); CREATININE 0.79 mg/dL (0.55-1.02); eGFR NON BLACK RACES > 60 (>60)
[2024-09-30 05:41] LABS: MEAN PLATELET VOLUME 8.1 fL (7.4-11.0); RED CELL DISTRIBUTION WIDTH 14.4 % (11.6-16.5)
--- NOTE | 2024-09-30 07:59 | RAD ---
EXAMINATION: CHEST, 1 VIEW HISTORY: CHF ; DM, ANEMIA, SEIZURES, ASTHMA, GERD, CHF SX: PAT, CSECTION, HYST, ORTHO . COMPARISON STUDY: 09/29/2024 TECHNIQUE: A single view of the chest was obtained. FINDINGS: . Heart size is borderline. No acute infiltrates. There is no pneumothorax. Hilar and mediastinal structures and bony structures are unremarkable. EKG leads present. Minimal bronchial thickening. IMPRESSION: No acute process in the chest. THIS IS AN ELECTRONICALLY VERIFIED FINAL REPORT 09/30/2024 7:56 AM - Electronically signed by Jonny Barksdale MD
[2024-09-30] MEDS: PHARMACY CONSULT XX SCH (08:09)
[2024-09-30] MEDS: CONSULT PHARMACY - POTASSIUM & MAGNESIUM XX SCH (08:09)
[2024-09-30] MEDS: LOVENOX INJ 40 MG SYR SC SCH (09:04)
[2024-09-30] MEDS: COREG TAB 12.5 MG PO SCH (09:05)
--- NOTE | 2024-09-30 09:29 | DR.H&P ---
H&P History & Physical for Day of: H&P Date: 09/29/24 Chief Complaint Chief Complaint: hypotension History of Present Illness History of Present Illness: Patient is a 44-year-old female with a history of cardiomyopathy, type 2 diabetes mellitus, anxiety, presenting after feeling lightheaded and was noted to have low blood pressure. She states she had taken her medications in the morning and then had passed out. She was noted to be significantly hypotensive in the ER. She denies any chest pain, shortness of breath, fevers, chills, nausea vomiting, diarrhea. Labs/imaging: WBC 10.5, hemoglobin 13.5, platelets 256, sodium 129, potassium 3.5, creatinine 1.05, glucose 375, lactic acid 0.5, troponin negative. Patient was admitted for acute hypotension, hyperglycemia, hyponatremia, dehydration. She was started on a Levophed drip in the ER. Will continue to wean off. Continue with IV fluids. Do not suspect infectious causes at this time. Will hold antihypertensive medications. Resume home medications. Start on Lantus with sliding scale insulin. Will also order an echo due to her history of cardiomyopathy. Otherwise continue with current treatment plan. Continue closely monitor and follow-up labs/imaging. Time spent for clinical assessment, reviewing labs/imaging, physical exam, decision making and documentation greater than 45 mins. 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 Surgery, Hysterectomy and Ortho Surgery Family History Family Medical History: Diabetes Mellitus, Cancer, [place], Coronary Artery Disease, Heart Failure and Hypertension Social History Does patient currently use any type of tobacco product: No Type of Tobacco Use: None Does any household member use tobacco: No Alcohol Use: None Drug Use: None Medications Home Medications: Home Medications Medication Instructions Recorded Confirmed Type fezolinetant 45 mg tablet ([place]) 45 mg PO QDAY 08/0409/29/24 History gabapentin 600 mg tablet 600 mg PO TID 08/04/2409/29 History ivabradine 5 mg tablet 5 mg PO BID 08/04/24 5 History tizanidine 2 mg tablet 2 mg PO TID PRN 08/04/24 History lorazepam 1 mg tablet 1 mg PO BID 09/29/24 5 History Allergies Allergies Allergy/AdvReac Type Severity Reaction Status Date / Time aspirin Allergy Unknown Verified 09/29/24 09:46 hydromorphone Allergy Unknown Verified 09/29/24 09:46 mesalamine (Asacol) Allergy Unknown Verified 09/29/24 09:46 metoclopramide Allergy Unknown Verified 09/29/24 09:46 ondansetron (From Zofran (as Allergy Unknown Verified 09/29/24 09:46 hydrochloride)) Penicillins Allergy Unknown Verified 09/29/24 09:46 prochlorperazine Allergy Unknown Verified 09/29/24 09:46 acetaminophen (From Percocet) Allergy Verified 09/29/24 09:46 amoxicillin Allergy Verified 09/29/24 09:46 citric acid Allergy Verified 09/29/24 09:46 haloperidol (From Haldol) Allergy Verified 09/29/24 09:46 omeprazole Allergy Verified 09/29/24 09:46 oxycodone (From Percocet) Allergy Verified 09/29/24 09:46 permethrin Allergy Verified 09/29/24 09:46 Labs 09/30/24 05:02 09/30/24 05:02 Labs: Laboratory WBC 7.6 X10^3/uL (3.6-10.0) 09/30/24 05:02 RBC 4.28 X10^6/uL (3.5-5.4) 09/30/24 05:02 Hgb 12.4 g/dL (12.0-16.0) 09/30/24 05:02 Hct 35.5 % (36.0-47.0) L 09/30/24 05:02 MCV 82.9 fL (80.0-100.0) 09/30/24 05:02 MCH 29.0 pg (27.0-34.0) 09/30/24 05:02 MCHC 35.0 g/dL (33.0-35.0) 09/30/24 05:02 RDW 14.4 % (11.6-16.5) 09/30/24 05:02 Plt Count 208 X10^3/uL (150.0-450.0) 09/30/24 05:02 MPV 8.1 fL (7.4-11.0) 09/30/24 05:02 Neut % (Auto) 69.9 % (42.0-75.0) 09/30/24 05:02 Lymph % (Auto) 21.8 % (21.0-51.0) 09/30/24 05:02 [place] % (Auto) 4.5 % (0.0-13.0) 09/30/24 05:02 Eos % (Auto) 3.3 % (0.9-2.9) H 09/30/24 05:02 Baso % (Auto) 0.5 % (0.2-1.0) 09/30/24 05:02 Neut # (Auto) 5.3 x10^3/uL (2.2-4.8) H 09/30/24 05:02 Lymph # (Auto) 1.7 X10^3/uL (1.3-2.9) 09/30/24 05:02 [place] # (Auto) 0.3 x10^3/uL (0.3-0.8) 09/30/24 05:02 Eos # (Auto) 0.2 x10^3/uL (0.0-0.2) 09/30/24 05:02 Baso # (Auto) 0.0 X10^3/uL (0.0-0.1) 09/30/24 05:02 Absolute Nucleated RBC 0.3 /100WBC 09/30/24 05:02 Sodium 133 mmol/L (136-145) L 09/30/24 05:02 Corrected Sodium 141 mmol/L (136-145) 09/30/24 05:02 Potassium 3.8 mmol/L (3.5-5.1) 09/30/24 05:02 Chloride 96 mmol/L (98-107) L 09/30/24 05:02 Carbon Dioxide 28.5 mmol/L (21-32) 09/30/24 05:02 BUN 14 mg/dL (7-18) 09/30/24 05:02 Creatinine 0.79 mg/dL (0.55-1.02) 09/30/24 05:02 Est GFR (MDRD) Af Amer > 60 (>60) 09/30/24 05:02 Est GFR (MDRD) Non-Af > 60 (>60) 09/30/24 05:02 Glucose 422 mg/dL (65-99) H 09/30/24 05:02 POC Glucose (mg/dL) 412 mg/dL (65-99) H 09/30/24 05:24 Lactic Acid 0.5 mmol/L (0.4-2.0) 09/29/24 10:21 Calcium 8.4 mg/dL (8.5-10.1) L 09/30/24 05:02 Corrected Calcium 9.0 mg/dL (8.5-10.1) 09/30/24 05:02 Magnesium 2.0 mg/dL (2.0-2.9) 09/29/24 09:17 Total Bilirubin 0.60 mg/dL (0.2-1.0) 09/30/24 05:02 AST 145 Units/L (15-37) H 09/30/24 05:02 ALT 55 Units/L (12-78) 09/30/24 05:02 Alkaline Phosphatase 162 Units/L (46-116) H 09/30/24 05:02 Ammonia 74 umol/L (11-32) H 09/29/24 14:39 Creatine Kinase 43 Units/L (26-192) 09/29/24 09:17 Troponin I High Sens 12.5 ng/L (4.0-60.0) 09/29/24 12:22 B-Natriuretic Peptide 18.1 pg/mL (0-79) 09/30/24 05:02 Total Protein 7.1 g/dL (6.4-8.2) 09/30/24 05:02 Albumin 3.2 g/dL (3.4-5.0) L 09/30/24 05:02 Globulin 3.9 g/dL (2.5-4.5) 09/30/24 05:02 Albumin/Globulin Ratio 0.8 Ratio (1.1-2.1) L 09/30/24 05:02 Specimen Type Clean catch urine 09/29/24 18:40 Urine Color Yellow (YELLOW) 09/29/24 18:40 Urine Appearance Clear (CLEAR) 09/29/24 18:40 Urine pH 6.0 (5.0 - 8.0) 09/29/24 18:40 Ur Specific [place] 1.015 (1.000-1.030) 09/29/24 18:40 Urine Protein Negative (NEGATIVE) 09/29/24 18:40 Urine Glucose (UA) 4+ (NEGATIVE) 09/29/24 18:40 Urine Ketones Negative (NEGATIVE) 09/29/24 18:40 Urine Blood Negative (NEGATIVE) 09/29/24 18:40 Urine Nitrite Negative (NEGATIVE) 09/29/24 18:40 Urine Bilirubin Negative (NEGATIVE) 09/29/24 18:40 Urine Urobilinogen Normal (NORMAL) 09/29/24 18:40 Ur Leukocyte Esterase Negative (NEGATIVE) 09/29/24 18:40 Review of Systems Constitutional: Weakness Eyes: No Symptoms Reported ENT: No Symptoms Reported Respiratory: No Symptoms Reported Cardiovascular: No Symptoms Reported Gastrointestinal: No Symptoms Reported Genitourinary: No Symptoms Reported Musculoskeletal: No Symptoms Reported Skin: No Symptoms Reported Neurological: No Symptoms Reported Physical Exam Vital Signs: Vital Signs Temperature 98.5 F Pulse Rate 86 Pulse Rate 90 Pulse Rate 94 Pulse Rate 89 Pulse Rate 95 Pulse Rate 92 Pulse Rate 91 Pulse Rate 91 Pulse Rate 92 Pulse Rate 99 Pulse Rate 110 Pulse Rate 89 Pulse Rate 86 Respiratory Rate 14 Respiratory Rate 17 Respiratory Rate 21 Respiratory Rate 19 Respiratory Rate 17 Respiratory Rate 16 Respiratory Rate 16 Respiratory Rate 18 Respiratory Rate 19 Respiratory Rate 15 Respiratory Rate 20 Respiratory Rate 83 Respiratory Rate 20 Respiratory Rate 18 Respiratory Rate 14 Blood Pressure 145/74 Blood Pressure 157/79 Blood Pressure 139/65 Blood Pressure 153/73 Blood Pressure 171/89 Blood Pressure 136/76 Blood Pressure 137/73 O2 Sat by Pulse Oximetry 99 O2 Sat by Pulse Oximetry 99 O2 Sat by Pulse Oximetry 100 O2 Sat by Pulse Oximetry 99 O2 Sat by Pulse Oximetry 98 O2 Sat by Pulse Oximetry 99 O2 Sat by Pulse Oximetry 99 O2 Sat by Pulse Oximetry 98 O2 Sat by Pulse Oximetry 98 O2 Sat by Pulse Oximetry 98 O2 Sat by Pulse Oximetry 95 O2 Sat by Pulse Oximetry 99 O2 Sat by Pulse Oximetry 100 Oriented: Normal Eyes: Normal Ear: Normal Nose: Normal Throat: Normal Respiratory: Clear Throughout Cardiovascular: Normal : Normal Auscultation: Bowel Sounds: Normal Palpation: Normal Tenderness: Normal Skin: Normal Musculoskeletal: Normal Psychiatric: Normal Mood Description: Calm and Appropriate Affect: Normal Speech Pattern: Clear and Appropriate Assessment/Plan (1) Acute hypotension: Status: Acute (2) Hyperglycemia: Status: Acute (3) Poorly controlled type 2 diabetes mellitus: Status: None (4) Mixed anxiety depressive disorder: Status: None (5) Essential hypertension: Status: None (6) Cardiomyopathy: Qualifiers: Cardiomyopathy type: unspecified Qualified Code(s): I42.9 - Cardiomyopathy, unspecified Status: Acute Review H&P Reviewed: Yes Patient was examined?: Yes
--- NOTE | 2024-09-30 09:34 | PCM.PROG ---
Progress Note Progress Note for Day of Date of Exam: 09/30/24 Subjective Subjective: Patient is a 44-year-old female with a history of cardiomyopathy, type 2 diabetes mellitus, anxiety, admitted for acute hypotension, hyperglycemia, hyponatremia, dehydration. This morning she is resting in bed. No acute events overnight. Her glucose levels have been significantly elevated. She has been able to be weaned off the Levophed drip. Labs/imaging: WBC 7.6, hemoglobin 12.4 platelets 208, sodium 141, potassium 3.8, creatinine 0.79, glucose 422. Echo pending. Will continue with IV fluids. Restart Coreg and hold other antihypertensive medications. Will adjust Lantus to 50 units in the morning and 30 units at night. Continue with sliding scale insulin. Home medications have been resumed. Otherwise continue with current treatment plan. Continue closely monitor and follow-up labs/imaging. Time spent for clinical assessment, reviewing labs/imaging, physical exam, decision making and documentation greater than 45 mins. Past Medical Family Social History Allergies: Allergies aspirin Allergy (Unknown, Verified 09/29/24 09:46) Reason: Drug allergy hydromorphone Allergy (Unknown, Verified 09/29/24 09:46) Reason: Drug allergy mesalamine (Asacol) Allergy (Unknown, Verified 09/29/24 09:46) Reason: Drug allergy metoclopramide Allergy (Unknown, Verified 09/29/24 09:46) Reason: Drug allergy ondansetron (From Zofran (as hydrochloride)) Allergy (Unknown, Verified 09/29/24 09:46) Reason: Drug allergy Penicillins Allergy (Unknown, Verified 09/29/24 09:46) Reason: Drug allergy prochlorperazine Allergy (Unknown, Verified 09/29/24 09:46) Reason: Drug allergy acetaminophen (From Percocet) Allergy (Verified 09/29/24 09:46) amoxicillin Allergy (Verified 09/29/24 09:46) citric acid Allergy (Verified 09/29/24 09:46) haloperidol (From Haldol) Allergy (Verified 09/29/24 09:46) omeprazole Allergy (Verified 09/29/24 09:46) oxycodone (From Percocet) Allergy (Verified 09/29/24 09:46) permethrin Allergy (Verified 09/29/24 09:46) Review of Systems ROS changes noted: see HPI Vital Signs and I&O's Vital Signs: Vital Signs Temperature 98.5 F Pulse Rate 86 Pulse Rate 90 Pulse Rate 94 Pulse Rate 89 Pulse Rate 95 Pulse Rate 92 Pulse Rate 91 Pulse Rate 91 Pulse Rate 92 Pulse Rate 99 Pulse Rate 110 Pulse Rate 89 Respiratory Rate 14 Respiratory Rate 17 Respiratory Rate 21 Respiratory Rate 19 Respiratory Rate 17 Respiratory Rate 16 Respiratory Rate 16 Respiratory Rate 18 Respiratory Rate 19 Respiratory Rate 15 Respiratory Rate 20 Respiratory Rate 83 Respiratory Rate 20 Respiratory Rate 18 Blood Pressure 145/74 Blood Pressure 157/79 Blood Pressure 139/65 Blood Pressure 153/73 Blood Pressure 171/89 Blood Pressure 136/76 O2 Sat by Pulse Oximetry 99 O2 Sat by Pulse Oximetry 99 O2 Sat by Pulse Oximetry 100 O2 Sat by Pulse Oximetry 99 O2 Sat by Pulse Oximetry 98 O2 Sat by Pulse Oximetry 99 O2 Sat by Pulse Oximetry 99 O2 Sat by Pulse Oximetry 98 O2 Sat by Pulse Oximetry 98 O2 Sat by Pulse Oximetry 98 O2 Sat by Pulse Oximetry 95 O2 Sat by Pulse Oximetry 99 Intake and Output: Intake & Output 09/27/24 09/28/24 09/29/24 09/30/24 23:59 23:59 23:59 23:59 Intake Total 913.0 / 913.0 835 / 835 Balance 913.0 / 913.0 835 / 835 Physical Exam Oriented: Normal Eyes: Normal Ear: Normal Nose: Normal Throat: Normal Respiratory: Normal Cardiovascular: Normal : Normal Auscultation: Bowel Sounds: Normal Tenderness: Normal Skin: Normal Musculoskeletal: Normal Psychiatric: Normal Mood Description: Calm and Appropriate Affect: Normal Speech Pattern: Clear and Appropriate Laboratory and Diagnostics 09/30/24 05:02 09/30/24 05:02 Labs: Laboratory WBC 7.6 X10^3/uL (3.6-10.0) 09/30/24 05:02 RBC 4.28 X10^6/uL (3.5-5.4) 09/30/24 05:02 Hgb 12.4 g/dL (12.0-16.0) 09/30/24 05:02 Hct 35.5 % (36.0-47.0) L 09/30/24 05:02 MCV 82.9 fL (80.0-100.0) 09/30/24 05:02 MCH 29.0 pg (27.0-34.0) 09/30/24 05:02 MCHC 35.0 g/dL (33.0-35.0) 09/30/24 05:02 RDW 14.4 % (11.6-16.5) 09/30/24 05:02 Plt Count 208 X10^3/uL (150.0-450.0) 09/30/24 05:02 MPV 8.1 fL (7.4-11.0) 09/30/24 05:02 Neut % (Auto) 69.9 % (42.0-75.0) 09/30/24 05:02 Lymph % (Auto) 21.8 % (21.0-51.0) 09/30/24 05:02 [place] % (Auto) 4.5 % (0.0-13.0) 09/30/24 05:02 Eos % (Auto) 3.3 % (0.9-2.9) H 09/30/24 05:02 Baso % (Auto) 0.5 % (0.2-1.0) 09/30/24 05:02 Neut # (Auto) 5.3 x10^3/uL (2.2-4.8) H 09/30/24 05:02 Lymph # (Auto) 1.7 X10^3/uL (1.3-2.9) 09/30/24 05:02 [place] # (Auto) 0.3 x10^3/uL (0.3-0.8) 09/30/24 05:02 Eos # (Auto) 0.2 x10^3/uL (0.0-0.2) 09/30/24 05:02 Baso # (Auto) 0.0 X10^3/uL (0.0-0.1) 09/30/24 05:02 Absolute Nucleated RBC 0.3 /100WBC 09/30/24 05:02 Sodium 133 mmol/L (136-145) L 09/30/24 05:02 Corrected Sodium 141 mmol/L (136-145) 09/30/24 05:02 Potassium 3.8 mmol/L (3.5-5.1) 09/30/24 05:02 Chloride 96 mmol/L (98-107) L 09/30/24 05:02 Carbon Dioxide 28.5 mmol/L (21-32) 09/30/24 05:02 BUN 14 mg/dL (7-18) 09/30/24 05:02 Creatinine 0.79 mg/dL (0.55-1.02) 09/30/24 05:02 Est GFR (MDRD) Af Amer > 60 (>60) 09/30/24 05:02 Est GFR (MDRD) Non-Af > 60 (>60) 09/30/24 05:02 Glucose 422 mg/dL (65-99) H 09/30/24 05:02 POC Glucose (mg/dL) 412 mg/dL (65-99) H 09/30/24 05:24 Lactic Acid 0.5 mmol/L (0.4-2.0) 09/29/24 10:21 Calcium 8.4 mg/dL (8.5-10.1) L 09/30/24 05:02 Corrected Calcium 9.0 mg/dL (8.5-10.1) 09/30/24 05:02 Magnesium 2.0 mg/dL (2.0-2.9) 09/29/24 09:17 Total Bilirubin 0.60 mg/dL (0.2-1.0) 09/30/24 05:02 AST 145 Units/L (15-37) H 09/30/24 05:02 ALT 55 Units/L (12-78) 09/30/24 05:02 Alkaline Phosphatase 162 Units/L (46-116) H 09/30/24 05:02 Ammonia 74 umol/L (11-32) H 09/29/24 14:39 Creatine Kinase 43 Units/L (26-192) 09/29/24 09:17 Troponin I High Sens 12.5 ng/L (4.0-60.0) 09/29/24 12:22 B-Natriuretic Peptide 18.1 pg/mL (0-79) 09/30/24 05:02 Total Protein 7.1 g/dL (6.4-8.2) 09/30/24 05:02 Albumin 3.2 g/dL (3.4-5.0) L 09/30/24 05:02 Globulin 3.9 g/dL (2.5-4.5) 09/30/24 05:02 Albumin/Globulin Ratio 0.8 Ratio (1.1-2.1) L 09/30/24 05:02 Specimen Type Clean catch urine 09/29/24 18:40 Urine Color Yellow (YELLOW) 09/29/24 18:40 Urine Appearance Clear (CLEAR) 09/29/24 18:40 Urine pH 6.0 (5.0 - 8.0) 09/29/24 18:40 Ur Specific [place] 1.015 (1.000-1.030) 09/29/24 18:40 Urine Protein Negative (NEGATIVE) 09/29/24 18:40 Urine Glucose (UA) 4+ (NEGATIVE) 09/29/24 18:40 Urine Ketones Negative (NEGATIVE) 09/29/24 18:40 Urine Blood Negative (NEGATIVE) 09/29/24 18:40 Urine Nitrite Negative (NEGATIVE) 09/29/24 18:40 Urine Bilirubin Negative (NEGATIVE) 09/29/24 18:40 Urine Urobilinogen Normal (NORMAL) 09/29/24 18:40 Ur Leukocyte Esterase Negative (NEGATIVE) 09/29/24 18:40 Plan (1) Acute hypotension: Status: Acute (2) Hyperglycemia: Status: Acute (3) Poorly controlled type 2 diabetes mellitus: Status: None (4) Mixed anxiety depressive disorder: Status: None (5) Essential hypertension: Status: None (6) Cardiomyopathy: Status: Acute Qualifiers: Cardiomyopathy type: unspecified Qualified Code(s): I42.9 - Cardiomyopathy, unspecified
[2024-09-30] MEDS: NEURONTIN TAB 600 MG PO SCH (09:45)
[2024-09-30] MEDS: LANTUS SC SCH (09:45)
[2024-09-30] MEDS: ATIVAN TAB 1 MG PO PRN (09:45)
[2024-09-30] MEDS: LASIX PO SCH (11:44)
[2024-09-30] MEDS: PROVENTIL NEB TX 0.083% 2.5MG/ 3ML NEB PRN (13:32)
[2024-09-30] MEDS: ULTRAM PO PRN (23:41)
--- NOTE | 2024-09-30 23:43 | EKG ---
Test Reason : chest pain Blood Pressure : */* mmHG Vent. Rate : 89 BPM Atrial Rate : 89 BPM P-R Int : 144 ms QRS Dur : 80 ms QT Int : 380 ms P-R-T Axes : 31 22 42 degrees QTc Int : 462 ms Normal sinus rhythm Normal ECG When compared with ECG of 29-SEP-2024 09:50, No significant change was found Confirmed by Collin Stewart MD ([id number]) on 10/01/2024 7:16:32 AM Referred By: Confirmed By: Collin Stewart MD
[2024-10-01 05:09] LABS: MEAN PLATELET VOLUME 7.6 fL (7.4-11.0)
[2024-10-01 05:12] LABS: RED CELL DISTRIBUTION WIDTH 14.7 % (11.6-16.5)
[2024-10-01 05:13] LABS: COR CA(FOR HYPOALB) 8.7 mg/dL (8.5-10.1); COR NA(FOR HYPERGLY) 141 mmol/L (136-145); CREATININE 0.71 mg/dL (0.55-1.02); eGFR NON BLACK RACES > 60 (>60)
[2024-10-01] MEDS ORDERED: CONSULT PHARMACY - POTASSIUM & MAGNESIUM XX SCH (07:00)
[2024-10-01] MEDS: K-DUR TAB 20 MEQ PO SCH ×2 (08:15→11:13)
[2024-10-01] MEDS: MAG-OX TAB PO SCH (08:15)
[2024-10-01] MEDS: GLUCOPHAGE XR 24-HR PO SCH (11:25)
[2024-10-01] MEDS: MAGNESIUM SULFATE 1 GRAM/100 mL PREMIX 1 G/100 ML BAG IV SCH (11:25)
[2024-10-01] MEDS: POTASSIUM CHLORIDE LIQ PO SCH (11:40)
[2024-10-01] MEDS ORDERED: POTASSIUM CHLORIDE LIQ PO SCH (12:00)
[2024-10-02 07:15] LABS: COR CA(FOR HYPOALB) 8.0 mg/dL (8.5-10.1); COR NA(FOR HYPERGLY) 136 mmol/L (136-145); eGFR NON BLACK RACES > 60 (>60)
[2024-10-02 07:52] LABS: CREATININE 0.35 mg/dL (0.55-1.02)
[2024-10-02 07:58] VITALS: BMI 38.7
[2024-10-02 07:58] LABS: MEAN PLATELET VOLUME 10.0 fL (7.4-11.0); RED CELL DISTRIBUTION WIDTH 14.3 % (11.6-16.5)
[2024-10-02 08:08] VITALS: BP 135/87; PULSE 97; TEMP 98.9; O2SAT 98
[2024-10-02] MEDS: MAG-OX TAB PO SCH (08:37)
[2024-10-02 08:42] VITALS: RESP 18
[2024-10-02] MEDS ORDERED: CONSULT PHARMACY - POTASSIUM & MAGNESIUM XX SCH (09:00)
[2024-10-02] MEDS: COLACE CAP 100 MG PO PRN (09:45)
== END 2024-10-02 10:50 | disposition home or self-care (01) | DRG 315 ==
LOC: ER 09:08 → ICU 13:35 → MED/SURG 10-01 12:35
PROVIDERS: ADMIT Family Medicine; ATTEND Family Medicine
DX: R42 Dizziness and giddiness; R94.5 Abnormal results of liver function studies; Z79.4 Long term (current) use of insulin; Z99.81 Dependence on supplemental oxygen; K21.9 Gastro-esophageal reflux disease without esophagitis; R53.1 Weakness; R94.31 Abnormal electrocardiogram [ECG] [EKG]; E87.1 Hypo-osmolality and hyponatremia; M19.90 Unspecified osteoarthritis, unspecified site; R07.89 Other chest pain; I95.89 Other hypotension; E86.0 Dehydration; I42.8 Other cardiomyopathies; E11.65 Type 2 diabetes mellitus with hyperglycemia; R06.02 Shortness of breath; E83.51 Hypocalcemia; F41.8 Other specified anxiety disorders; Z86.69 Personal history of other diseases of the nervous system and sense organs; Z86.79 Personal history of other diseases of the circulatory system